=== PATIENT | male | born 1975 | race Caucasian/White ===

== ENCOUNTER 2020-01-25 09:37 | Outpatient (REF) | payer OTHER, SELFPAY ==
[2020-01-25 10:11] LABS: MANUAL DIFF FLAG NO
[2020-01-25 10:16] LABS: Basophils Percent Auto 0.1 % (0-2); Eosinophils Absolute Auto 0.1 X10*3/uL (0.0-0.4); Eosinophils Percent Auto 1.4 % (0-4); Hematocrit 42.9 % (42-52); Hemoglobin 14.1 g/dl (14.0-18.0); Imm Gran Abs Auto 0.02 X10*3/uL (0.00-0.03); Imm Gran Pct Auto 0.3 % (0.0-0.4); Lymphocytes Absolute Auto 2.6 X10*3/uL (1.2-4.9); Lymphocytes Percent Auto 33.6 % (20-40); Mean Corpuscular HGB Conc 32.9 g/dl (31.0-36.0); Mean Corpuscular Hemoglobin 29.7 pg (27.0-33.0); Mean Corpuscular Volume 90.3 fL (80-98); Mean Platelet Volume 10.5 fL (9.4-12.4); Monocytes Absolute Auto 0.6 X10*3/uL (0.1-1.2); Monocytes Percent Auto 7.9 % (2-11); Neutrophils Absolute Auto 4.4 X10*3/uL (2.0-8.3); Neutrophils Percent Auto 56.7 % (45-73); Platelet Count 239 X10*3/uL (160-400); Red Blood Count 4.75 X10*6/uL (4.60-5.80); Red Cell Distribution Width 12.5 % (11.0-16.0); White Blood Count 7.7 X10*3/uL (4.8-10.8)
[2020-01-25 10:34] LABS: Glucose Urine UA NEG (NEG); Leukocyte Esterase Urine NEG (NEG); Nitrite Urine NEG (NEG); Specific Gravity - Urine >= 1.030 (1.005-1.025); Urine Blood NEG (NEG); Urine Ketones NEG (NEG); Urine Protein NEG (NEG-TRACE)
[2020-01-25 10:38] LABS: Appearance Urine CLEAR; Color Urine YELLOW
[2020-01-25 11:06] LABS: Alanine Aminotransferase 28 U/L (0-40); Albumin Level 4.2 g/dL (3.5-5.0); Alkaline Phosphatase 64 U/L (39-117); Anion Gap 12 (12-20); Aspartate Amino Transferase 18 U/L (5-37); Bilirubin Total 0.5 mg/dL (0.0-1.0); Blood Urea Nitrogen 16 mg/dL (9-16); Calcium 9.3 mg/dL (8.4-10.2); Carbon Dioxide 27 mmol/L (22-29); Chloride 105 mmol/L (96-108); Cholesterol 235 mg/dL; Estimated Glomerular Filt Rate > 60; Glucose Fasting 120 mg/dL (60-99); HDL Cholesterol 53 mg/dL; LDL Cholesterol Calculated 156 mg/dl; Potassium 4.6 mmol/l (3.3-5.1); Sodium 139 mmol/L (135-145); Total Protein 6.8 g/dL (6.5-8.0); Triglycerides 130 mg/dL
[2020-01-25 11:11] LABS: Mucus Urine 1+ /LPF; RBC Urine 0 /HPF (0); Squamous Epithelial Cell Urine TRACE /LPF; WBC Urine 0 /HPF (0-4)
[2020-01-25 11:14] LABS: Creatinine Urine 203.67 mg/dL; Microalbum/Creatinine Ratio Ur 3.4 ug/mg cr
== END 2020-01-25 09:38 | disposition home or self-care (01) ==
LOC: HO.LAB 09:37
PROVIDERS: PCP Internal Medicine; Visit Provider Internal Medicine
DX: Z00.00 Encounter for general adult medical examination without abnormal findings (principal); R73.01 Impaired fasting glucose; E66.9 Obesity, unspecified
CPT/HCPCS: 36415; 80053; 80061; 81003; 81015; 82043; 84443; 85025

== ENCOUNTER 2020-10-02 08:15 | Outpatient (REF) | payer OTHER, SELFPAY | END 2020-10-02 08:16 | disposition home or self-care (01) | LOC: HO.LAB 08:15 | PROVIDERS: PCP Internal Medicine; Visit Provider Internal Medicine | DX: Z13.89 Encounter for screening for other disorder (principal) ==

== ENCOUNTER 2020-11-12 07:52 | Outpatient (REF) | payer OTHER, SELFPAY ==
[2020-11-12 08:54] LABS: Estimated Average Glucose 146 mg/dL; Hemoglobin A1c % 6.7 %
[2020-11-12 09:05] LABS: Alanine Aminotransferase 23 U/L (0-40); Alkaline Phosphatase 74 U/L (39-117); Anion Gap 13 (12-20); Aspartate Amino Transferase 18 U/L (5-37); Bilirubin Total 0.5 mg/dL (0.0-1.0); Blood Urea Nitrogen 15 mg/dL (9-16); Calcium 9.4 mg/dL (8.4-10.2); Carbon Dioxide 26 mmol/L (22-29); Chloride 106 mmol/L (96-108); Cholesterol 222 mg/dL; Estimated Glomerular Filt Rate > 60; Glucose Fasting 132 mg/dL (60-99); HDL Cholesterol 42 mg/dL; LDL Cholesterol Calculated 157 mg/dl; Potassium 4.9 mmol/L (3.3-5.1); Sodium 140 mmol/L (135-145); Total Protein 6.7 g/dL (6.5-8.0); Triglycerides 119 mg/dL
[2020-11-12 09:27] LABS: TSH reflex Free T4 1.34 uIU/mL (0.32-4.0)
== END 2020-11-12 07:53 | disposition home or self-care (01) ==
LOC: HO.LAB 07:52
PROVIDERS: PCP Internal Medicine; Visit Provider Internal Medicine
DX: E78.00 Pure hypercholesterolemia, unspecified (principal); E66.9 Obesity, unspecified; R73.01 Impaired fasting glucose
CPT/HCPCS: 36415; 80053; 80061; 83036; 84443

== ENCOUNTER 2021-04-04 07:35 | Outpatient (REF) | payer OTHER, SELFPAY ==
[2021-04-04 08:10] LABS: Estimated Average Glucose 131 mg/dL; Hemoglobin A1c % 6.2 %
[2021-04-04 08:18] LABS: Alanine Aminotransferase 24 U/L (0-40); Albumin Level 4.1 g/dL (3.5-5.0); Alkaline Phosphatase 70 U/L (39-117); Anion Gap 11 (12-20); Aspartate Amino Transferase 17 U/L (5-37); Bilirubin Total 0.6 mg/dL (0.0-1.0); Blood Urea Nitrogen 14 mg/dL (9-16); Calcium 9.7 mg/dL (8.4-10.2); Carbon Dioxide 29 mmol/L (22-29); Chloride 105 mmol/L (96-108); Cholesterol 201 mg/dL; Estimated Glomerular Filt Rate > 60; Glucose Fasting 119 mg/dL (60-99); HDL Cholesterol 46 mg/dL; LDL Cholesterol Calculated 135 mg/dl; Potassium 4.8 mmol/L (3.3-5.1); Sodium 140 mmol/L (135-145); Total Protein 6.8 g/dL (6.5-8.0); Triglycerides 104 mg/dL
== END 2021-04-04 07:36 | disposition home or self-care (01) ==
LOC: HO.LAB 07:35
PROVIDERS: PCP Internal Medicine; Visit Provider Internal Medicine
DX: E11.9 Type 2 diabetes mellitus without complications (principal); E78.00 Pure hypercholesterolemia, unspecified
CPT/HCPCS: 36415; 80053; 80061; 83036

== ENCOUNTER 2021-06-18 10:58 | Outpatient (REF) | payer OTHER, SELFPAY ==
--- NOTE | ~2021-06-18 | XR_ITS ---
EXAMINATION:XR cervical spine 3V CLINICAL INFORMATION: Cervalgia COMPARISON: None TECHNIQUE: 3 views of the cervical spine were obtained. Frontal lateral and open-mouth odontoid view FINDINGS: 7 cervical vertebrae identified maintaining normal height and alignments.. Mild narrowing of intervertebral disc spaces suggest underlying degenerative disc disease.. No prevertebral soft tissue swelling. Surrounding soft tissue and included lung apices are clear. Included lung apices are clear. XR/XR cervical spine 3V IMPRESSION: No fracture, bone alignment satisfactory. Narrowing of intervertebral disc spaces suggest underlying degenerative disc disease. .
== END 2021-06-18 10:59 | disposition home or self-care (01) ==
LOC: HO.XRAY 10:58
PROVIDERS: PCP Internal Medicine; Visit Provider Internal Medicine
DX: M54.2 Cervicalgia (principal)
CPT/HCPCS: 72040

== ENCOUNTER 2021-07-10 10:00 | Outpatient (RCR) | payer OTHER, SELFPAY ==
--- NOTE | 2021-06-19 12:47 | MHC.PT.EP ---
[facility] [place] Office [place] [facility] [place] Office [address] Jarett Rivera [address] [phone] F: [phone] F: [phone] F: [phone] F: [phone] Physical Therapy Plan of Care Date of Evaluation: Date of Surgery: NA Diagnosis: CERVICALGIA Assessment: Pt IS 46 YO RHD M REFERRED TO PT FROM DR CHRISTINA WITH CERVICALGIA. XRAY SHOWS SIGNS OF DDD. Pt REPORTS SOME CHRONIC ISSUES WITH NECK WITH RECENT INCREASE IN PAIN (?RELATED TO STARTING TO WORK OUT). ALSO REPORTS SOME L ULNAR DIST PARESTHESIA (RELIEF WITH NERVE GLIDES (FROM YOU TUBE) AND SOME L FOREARM SORENESS ( ?TENNIS ELBOW FROM PERCUSSION/BONGO WORK ) WHICH HAVE RESOLVED. PRESENTS WITH LIMITED/SX CREATING CERV EXT, GOOD SHLDER ROM, GOOD SHLDER STRENGTH. SHOULD BENEFIT FROM PT TO HELP INCREASE UPPER BACK STRENGTH, STRETCH CERV MMS Frequency and Duration: The patient will be seen 2X/WK X 4 WKS Short Term Goals: 1. INCREASED AWARENESS POSTURE AND NECK CARE 2. IMPROVED SLEEP Half-Way Goals: 1. I HEP WITH DC EX PLAN 2. IMPROVED NPDI Treatment Plan: Modalities to reduce pain, spasms and effusion. Manual therapy to restore motion and function. Therapeutic exercise to improve strength and flexibility. Neuromuscular re-education for posture and balance. Therapeutic activities to return to functional activities of daily living. Electronically signed by: LYNDA FLOR PT Please sign and return to therapist. Thank you for your referral.
== END 2021-08-07 13:52 | disposition home or self-care (01) ==
LOC: HO.PT 10:00
PROVIDERS: PCP Internal Medicine; Visit Provider Internal Medicine
DX: M54.2 Cervicalgia (principal)
CPT/HCPCS: 97110; 97140; 97161; 97535

== ENCOUNTER 2022-01-13 08:11 | Outpatient (REF) | payer OTHER, SELFPAY ==
[2022-01-13 08:39] LABS: MANUAL DIFF FLAG NO
[2022-01-13 09:09] LABS: Basophils Percent Auto 0.1 % (0-2); Eosinophils Absolute Auto 0.2 X10*3/uL (0.0-0.4); Hematocrit 42.4 % (42.0-52.0); Hemoglobin 14.1 g/dl (14.0-18.0); Imm Gran Abs Auto 0.03 X10*3/uL (0.00-0.03); Imm Gran Pct Auto 0.4 % (0.0-0.4); Lymphocytes Absolute Auto 2.1 X10*3/uL (1.2-4.9); Lymphocytes Percent Auto 28.5 % (20-40); Mean Corpuscular HGB Conc 33.3 g/dl (31.0-36.0); Mean Corpuscular Volume 90.2 fL (80.0-98.0); Mean Platelet Volume 10.8 fL (9.4-12.4); Monocytes Absolute Auto 0.6 X10*3/uL (0.1-1.2); Monocytes Percent Auto 8.5 % (2-11); Neutrophils Absolute Auto 4.4 x10*3/uL (2.0-8.3); Neutrophils Percent Auto 59.5 % (45-73); Platelet Count 218 X10*3/uL (160-400); Red Cell Distribution Width 12.5 % (11.0-16.0); White Blood Count 7.4 X10*3/uL (4.8-10.8)
[2022-01-13 09:24] LABS: Appearance Urine Clear; Color Urine Yellow; Glucose Urine UA Negative (Negative); Leukocyte Esterase Urine Negative (Negative); Nitrite Urine Negative (Negative); PH 6.5 (5.0-9.0); Specific Gravity - Urine 1.015 (1.005-1.025); Urine Blood Negative (Negative); Urine Ketones Negative (Negative); Urine Protein Negative (Neg-Trace)
[2022-01-13 09:40] LABS: Alanine Aminotransferase 20 U/L (0-40); Albumin Level 4.2 g/dL (3.5-5.0); Alkaline Phosphatase 67 U/L (39-117); Anion Gap 15 (12-20); Aspartate Amino Transferase 18 U/L (5-37); Bilirubin Total 0.9 mg/dL (0.0-1.0); Blood Urea Nitrogen 15 mg/dL (9-16); Calcium 9.4 mg/dL (8.4-10.2); Carbon Dioxide 26 mmol/L (22-29); Chloride 103 mmol/L (96-108); Cholesterol 156 mg/dL; Estimated Glomerular Filt Rate > 60; Glucose Fasting 102 mg/dL (60-99); HDL Cholesterol 51 mg/dL; LDL Cholesterol Calculated 90 mg/dl; Potassium 4.5 mmol/L (3.3-5.1); Sodium 139 mmol/L (135-145); Total Protein 6.7 g/dL (6.5-8.0); Triglycerides 78 mg/dL
[2022-01-13 10:05] LABS: Prostate Specific Antigen Scr 0.48 ng/mL (<0.05-4.0); TSH reflex Free T4 1.14 uIU/mL (0.32-4.0); Vitamin D 25-OH Total 18.8 ng/mL (>30)
== END 2022-01-13 08:12 | disposition home or self-care (01) ==
LOC: HO.LAB 08:11
PROVIDERS: PCP Internal Medicine; Visit Provider Internal Medicine
DX: Z00.00 Encounter for general adult medical examination without abnormal findings (principal); E55.9 Vitamin D deficiency, unspecified; E11.9 Type 2 diabetes mellitus without complications; E78.00 Pure hypercholesterolemia, unspecified
CPT/HCPCS: 36415; 80053; 80061; 81003; 82306; 84153; 84443; 85025

== ENCOUNTER 2022-02-03 18:48 | Emergency (ER) | payer OTHER, SELFPAY ==
--- NOTE | ~2022-02-03 | CT_ITS ---
EXAMINATION: CT ABDOMEN AND PELVIS WITHOUT CONTRAST CLINICAL INFORMATION: Left lower quadrant abdominal pain COMPARISON: 03/01/2019 TECHNIQUE: Multidetector volumetric imaging was performed from the superior aspect of the liver through the pubic symphysis. Sagittal and coronal reformatted images were obtained on the technologist's workstation. This CT examination was performed using dose optimization techniques as appropriate, variously including the following: *Automated exposure control *Adjustment of mA and/or kV according to patient size (this includes techniques or standardized protocols for targeted exams where dose is matched to indication/reason for exam; i.e. extremities or head) *Use of iterative reconstruction technique DLP: 825 mGy-cm FINDINGS: LUNG BASES: The visualized lung bases are unremarkable. LIVER, GALLBLADDER, AND BILIARY TREE: The liver is normal in size, shape, and attenuation. No focal hepatic lesion or biliary ductal dilatation is present. The gallbladder is unremarkable with no evidence of radiopaque gallstones, gallbladder wall thickening, or obvious pericholecystic inflammatory changes. PANCREAS: Unremarkable. SPLEEN: Unremarkable. ADRENAL GLANDS: Unremarkable. KIDNEYS AND URETERS: The kidneys are normal in size, shape, and attenuation. No hydronephrosis, hydroureter, or calculi seen. No perinephric stranding. BLADDER: Unremarkable. GASTROINTESTINAL TRACT: No bowel related abnormalities. ABDOMINAL WALL: No significant hernia is appreciated. LYMPH NODES: Normal. VASCULAR: Unremarkable. PELVIC VISCERA: Unremarkable. OSSEOUS STRUCTURES: No acute or suspicious osseous abnormalities. CT/CT abdomen pelvis wo IV con IMPRESSION: No acute findings within the abdomen or pelvis to explain the patient's symptomatology. Fleischner guidelines were followed.
[2022-02-03 20:29] LABS: Appearance Urine Clear; Color Urine Yellow; Glucose Urine UA Negative (Negative); Leukocyte Esterase Urine Negative (Negative); Nitrite Urine Negative (Negative); PH 5.5 (5.0-9.0); Specific Gravity - Urine 1.025 (1.005-1.025); Urine Blood Negative (Negative); Urine Ketones Negative (Negative); Urine Protein Negative (Neg-Trace)
[2022-02-03 20:55] VITALS: BP 135/81; PULSE 61; RESP 18; TEMP 36.6; O2SAT 99; BMI 32.2
[2022-02-04 00:52] VITALS: BP 133/81; PULSE 53; RESP 16; TEMP 36.7; O2SAT 98
--- NOTE | 2022-02-04 00:52 | PC.NURSE ---
ASSUMED CARE OF PATIENT AT 0055 ,TOOK PATIENT VITALS SIGN ,PATIENT AT BEDSIDE .
--- NOTE | 2022-02-04 01:14 | ED_ITS ---
HPI - Abdominal Pain General Chief Complaint: Abdominal Pain Stated Complaint: lower left back and abd pain Time Seen by Provider: 02/04/22 01:08 Source: patient Mode of arrival: ambulatory Limitations: no limitations History of Present Illness HPI narrative: 47 yo male with history of DM, obesity, HLD presents with intermittent left- sided abdominal pain which radiates the back since yesterday after eating some p wilmer with fettucine sauce. No nausea, vomiting, diarrhea, urinary symptoms, fevers or chills Related Data Home Medications Medication Instructions Recorded Confirmed metformin 500 mg tablet,extended 500 mg PO DAILY 12/23/21 release 24 hr Previous Rx's Medication Instructions Recorded rosuvastatin 10 mg tablet 10 mg PO DAILY #30 tabs 08/17/21 Allergies Allergy/AdvReac Type Severity Reaction Status Date / Time atorvastatin AdvReac Severe Difficulty Verified 12/23/21 16:35 Breathing Review of Systems Review of Systems Yes all other systems are reviewed and are negative Constitutional: Reports no additional constitutional complaints, Denies body ache(s), Denies chills, Denies fever(s), Denies headache(s) and Denies weakness Eyes: Reports no additional eye complaints and Denies change in vision Reports system reviewed and no additional complaints, except as documented, Denies dizziness, Denies headache(s), Denies nasal congestion, Denies nasal discharge and Denies neck pain Cardiovascular: Reports no additional cardiovascular complaints, Denies chest pain, Denies leg edema and Denies dyspnea Respiratory: Reports no additional respiratory complaints, Denies cough and Denies dyspnea Gastrointestinal: Reports no additional gastrointestinal complaints, Reports abdominal pain, Denies diarrhea, Denies nausea and Denies vomiting Genitourinary: Denies urinary incontinence Musculoskeletal: Reports no additional musculoskeletal complaints, Denies back pain, Denies arthralgias, Denies joint swelling, Denies neck pain, Denies numbness and Denies tingling Skin/Breast: Reports system reviewed and no additional complaints, except as docu and Denies rash Reports system reviewed and no additional complaints, except as documented, Denies dizziness, Denies headache(s), Denies numbness, Denies tingling and Denies weakness PMFSH Past Medical History Attestation statement: The following information was validated with the patient. Source: old records reviewed and nursing notes reviewed Medical History Diabetes mellitus Obesity (BMI 30-39.9) Pure hypercholesterolemia Surgical History No pertinent past surgical history Family History Family History Father Prediabetes Mother Schizophrenia Bipolar 1 disorder Maternal Grandfather Diabetes Daughter Epilepsy Maternal Grandmother Dementia Other Mental health problem Social History Social History Housing: Apartment Alcohol intake: current Alcohol intake frequency: holidays/special occasions only Patient Tobacco Use Status: Never used Tobacco Second Hand Smoke Exposure: Yes Advance Directives: No service: No Current occupational status: employed 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 Physical Exam ED Vital Signs: Vital Signs - 24 hr 02/03/22 20:55 02/04/22 00:52 02/04/22 01:59 Temperature 97.8 F 98.0 F 97.8 F Pulse Rate 61 53 51 Respiratory Rate 18 16 16 Blood Pressure 135/81 133/81 117/76 Pulse Oximetry 99 98 99 Oxygen Delivery Method Room Air Room Air Room Air BMI result Body Mass Index 32.2 Const General: cooperative, healthy appearing and no acute distress Orientation/consciousness: patient oriented x3 Limitations: no limitations HENMT Head: Yes normal to inspection Ears: hearing grossly normal bilaterally Eyes General: appearance normal, both eyes and all related structures Pupils: Equal, round and reactive pupils present Neck Neck: Yes normal visual inspection Chest Chest palpation & inspection: normal inspection of the chest Resp Effort & Inspection: normal respiratory effort Auscultation: clear to auscultation bilaterally Cardio Rate: regular rate Rhythm: regular rhythm Peripheral pulses: Peripheral pulses 2+ throughout GI Inspection: Yes normal to inspection Palpation (GI): Soft to palpation and Tenderness to palpation present (GI) in the LLQ General: Yes no CVA tenderness Back/Spine/Pelvis Back: no CVA tenderness Thoracic/Lumbar Spine: thoracic and lumbar spine normal to inspection Skin General skin exam: no rashes or lesions noted Neuro General: patient oriented x3 and moves all extremities Cranial nerves: Yes Equal, round and reactive pupils present Cognition (Neuro): normal cognition Gait exam (Neuro): Normal gait present Course Course Course Narrative: Labs are unremarkable. Urine testing shows no blood or signs of infection. CT of abdomen and pelvis is negative for any finding. Patient is tolerating p.o. with no vomiting. Abdomen is soft with some mild tenderness. No rebound or guarding. No signs of peritonitis. Plan for discharge home. Reviewed worrisome signs and symptoms of when to return to the emergency room. Comfortable with discharge home. MDM - Abdominal Pain MDM Narrative Medical decision making narrative: 47-year-old male here with left-sided abdominal pain with radiation to the back after eating some food yesterday with no other associated symptoms. Will check labs, UA, CT Pancreatitis, renal colic, diverticulitis Medical Records Attestation: I reviewed the patient's medical records. Lab Data Attestation: I reviewed the patient's lab results. Result diagrams: 02/04/22 01:26 02/04/22 01:26 Labs: Lab Results 02/03/22 02/04/22 02/04/22 Range/Units 20:21 01:26 01:26 WBC 8.8 (4.8-10.8) X10*3/uL RBC 4.65 (4.60-5.80) X10*6/uL Hgb 13.8 L (14.0-18.0) g/dl Hct 41.4 L (42.0-52.0) % MCV 89.0 (80.0-98.0) fL MCH 29.7 (27.0-33.0) pg MCHC 33.3 (31.0-36.0) g/dl RDW 12.2 (11.0-16.0) % Plt Count 209 (160-400) X10*3/uL MPV 10.3 (9.4-12.4) fL Immature Gran % (Auto) 0.2 (0.0-0.4) % Neut % (Auto) 57.7 (45-73) % Lymph % (Auto) 32.7 (20-40) % [place] % (Auto) 7.5 (2-11) % Eos % (Auto) 1.7 (0-4) % Baso % (Auto) 0.2 (0-2) % Lymph # (Auto) 2.9 (1.2-4.9) X10*3/uL [place] # (Auto) 0.7 (0.1-1.2) X10*3/uL Eos # (Auto) 0.2 (0.0-0.4) X10*3/uL Baso # (Auto) 0.0 (0.0-0.2) X10*3/uL Abs Immat Gran (auto) 0.02 (0.00-0.03) X10*3/uL Absolute Neuts (auto) 5.1 (2.0-8.3) x10*3/uL Absolute Nucleated RBC 0.000 (0.0-0.012) X10*3/uL Nucleated RBC % (auto) 0.0 (0.0-0.2) /100WBC Sodium 139 (135-145) mmol/L Potassium 4.8 (3.3-5.1) mmol/L Chloride 104 (96-108) mmol/L Carbon Dioxide 26 (22-29) mmol/L Anion Gap 14 (12-20) BUN 11 (9-16) mg/dL Creatinine 0.91 (0.5-1.4) mg/dL Estim Creat Clear Calc 120.9 Estimated GFR > 60 Random Glucose 112 (60-115) mg/dL Calcium 9.3 (8.4-10.2) mg/dL Total Bilirubin 0.7 (0.0-1.0) mg/dL Direct Bilirubin 0.3 (0.0-0.5) mg/dL AST 15 (5-37) U/L ALT 20 (0-40) U/L Alkaline Phosphatase 63 (39-117) U/L Total Protein 6.5 (6.5-8.0) g/dL Albumin 4.1 (3.5-5.0) g/dL Lipase 20 (8-78) U/L Urine Color Yellow Urine Appearance Clear Urine pH 5.5 (5.0-9.0) Ur Specific [place] 1.025 (1.005-1.025) Urine Protein Negative (Neg-Trace) mg/dL Urine Glucose (UA) Negative (Negative) mg/dL Urine Ketones Negative (Negative) mg/dL Urine Blood Negative (Negative) Urine Nitrite Negative (Negative) Ur Leukocyte Esterase Negative (Negative) Imaging Data CT scan - abdomen: Attestation: I personally reviewed and interpreted this imaging study as follows: Radiologist's impression: FINDINGS: LUNG BASES: The visualized lung bases are unremarkable.? LIVER, GALLBLADDER, AND BILIARY TREE: The liver is normal in size, shape, and attenuation. No focal hepatic lesion or biliary ductal dilatation is present. The gallbladder is unremarkable with no evidence of radiopaque gallstones, gallbladder wall thickening, or obvious pericholecystic inflammatory changes.? PANCREAS: Unremarkable.? SPLEEN: Unremarkable.? ADRENAL GLANDS: Unremarkable.? KIDNEYS AND URETERS: The kidneys are normal in size, shape, and attenuation. No hydronephrosis, hydroureter, or calculi seen. No perinephric stranding. ? BLADDER: Unremarkable.? GASTROINTESTINAL TRACT: No bowel related abnormalities.? ABDOMINAL WALL: No significant hernia is appreciated.? LYMPH NODES: Normal. VASCULAR: Unremarkable. PELVIC VISCERA: Unremarkable.? OSSEOUS STRUCTURES: No acute or suspicious osseous abnormalities.? CT/CT abdomen pelvis wo IV con IMPRESSION: No acute findings within the abdomen or pelvis to explain the patient's symptomatology. ? Fleischner guidelines were followed. Discharge Plan Discharge Clinical Impression: Abdominal pain Patient Disposition: Home, Self-Care Instructions: Abdominal Pain (ED) Additional Instructions: Lab work, urine testing and x-ray are all reassuring Follow-up with your primary care doctor for any persistent symptoms Return for fever, intractable vomiting, worsening pain Prescriptions: No Action rosuvastatin 10 mg tablet 10 mg PO DAILY Qty: 30 3RF metformin 500 mg tablet extended release 24 hr 500 mg PO DAILY
[2022-02-04 01:30] LABS: MANUAL DIFF FLAG NO
[2022-02-04 01:31] LABS: Basophils Percent Auto 0.2 % (0-2); Eosinophils Absolute Auto 0.2 X10*3/uL (0.0-0.4); Eosinophils Percent Auto 1.7 % (0-4); Hematocrit 41.4 % (42.0-52.0); Hemoglobin 13.8 g/dl (14.0-18.0); Imm Gran Abs Auto 0.02 X10*3/uL (0.00-0.03); Imm Gran Pct Auto 0.2 % (0.0-0.4); Lymphocytes Absolute Auto 2.9 X10*3/uL (1.2-4.9); Lymphocytes Percent Auto 32.7 % (20-40); Mean Corpuscular HGB Conc 33.3 g/dl (31.0-36.0); Mean Corpuscular Hemoglobin 29.7 pg (27.0-33.0); Mean Platelet Volume 10.3 fL (9.4-12.4); Monocytes Absolute Auto 0.7 X10*3/uL (0.1-1.2); Monocytes Percent Auto 7.5 % (2-11); Neutrophils Absolute Auto 5.1 x10*3/uL (2.0-8.3); Neutrophils Percent Auto 57.7 % (45-73); Platelet Count 209 X10*3/uL (160-400); Red Blood Count 4.65 X10*6/uL (4.60-5.80); Red Cell Distribution Width 12.2 % (11.0-16.0); White Blood Count 8.8 X10*3/uL (4.8-10.8)
[2022-02-04 01:49] LABS: Alanine Aminotransferase 20 U/L (0-40); Albumin Level 4.1 g/dL (3.5-5.0); Alkaline Phosphatase 63 U/L (39-117); Anion Gap 14 (12-20); Aspartate Amino Transferase 15 U/L (5-37); Bilirubin Direct 0.3 mg/dL (0.0-0.5); Bilirubin Total 0.7 mg/dL (0.0-1.0); Blood Urea Nitrogen 11 mg/dL (9-16); Calcium 9.3 mg/dL (8.4-10.2); Carbon Dioxide 26 mmol/L (22-29); Chloride 104 mmol/L (96-108); Creatinine Clr Calc Pharmacy 120.9; Estimated Glomerular Filt Rate > 60; Glucose Random 112 mg/dL (60-115); Lipase 20 U/L (8-78); Potassium 4.8 mmol/L (3.3-5.1); Sodium 139 mmol/L (135-145); Total Protein 6.5 g/dL (6.5-8.0)
[2022-02-04 01:59] VITALS: BP 117/76; PULSE 51; RESP 16; TEMP 36.6; O2SAT 99
== END 2022-02-04 02:18 | disposition home or self-care (01) ==
PROVIDERS: Nurse Practitioner Family; Emergency Provider Emergency Medicine; PCP Internal Medicine
DX: R10.32 Left lower quadrant pain (principal); M54.50 Low back pain, unspecified; E11.9 Type 2 diabetes mellitus without complications; Z79.899 Other long term (current) drug therapy
CPT/HCPCS: 36415; 74176; 80048; 80076; 81003; 83690; 85025; 99283; 99284

== ENCOUNTER 2022-04-30 09:20 | Emergency (ER) | payer OTHER, SELFPAY ==
--- NOTE | ~2022-04-30 | XR_ITS ---
EXAMINATION: XR CHEST CLINICAL INFORMATION: Disorientation. COMPARISON: 05/31/2017 chest radiographs. TECHNIQUE: Frontal view of the chest was obtained. FINDINGS: No significant abnormality is noted involving the heart, lungs, mediastinum, bony thorax or soft tissues. XR/XR chest 1V IMPRESSION: No acute cardiopulmonary process.
--- NOTE | ~2022-04-30 | CT_ITS ---
EXAMINATION: CT HEAD WITHOUT CONTRAST CLINICAL INFORMATION: Intermittent episodes of disorientation. COMPARISON: None TECHNIQUE: Contiguous axial imaging was performed from the skull base to vertex without intravenous administration of contrast. Coronal and sagittal reformatted images were obtained. This CT examination was performed using dose optimization techniques as appropriate, variously including the following: *Automated exposure control *Adjustment of mA and/or kV according to patient size (this includes techniques or standardized protocols for targeted exams where dose is matched to indication/reason for exam; i.e. extremities or head) *Use of iterative reconstruction technique DLP: 669 mGy-cm FINDINGS: The cortical sulci are normal. The lateral ventricles are symmetrical. The third and fourth ventricles are in their normal midline position. The basilar and prepontine cisterns are unremarkable. There is no acute intra or extracerebral abnormality. There is no mass effect or midline shift. Sections through the bony calvarium are unremarkable. The paranasal sinuses are clear. The bony orbits and orbital contents are unremarkable. CT/CT head/brain wo IV con IMPRESSION: No acute intracranial pathology.
[2022-04-30 09:27] VITALS: BP 142/92; PULSE 75; RESP 18; TEMP 36.8; O2SAT 98; BMI 32.7
--- NOTE | 2022-04-30 09:38 | ECG_ITS ---
Test Reason : DISORIENTED Blood Pressure : / mmHG Vent. Rate : 060 BPM Atrial Rate : 060 BPM P-R Int : 144 ms QRS Dur : 092 ms QT Int : 386 ms P-R-T Axes : 047 -17 011 degrees QTc Int : 386 ms Normal sinus rhythm Normal ECG When compared with ECG of 31-MAY-2017 04:18, No significant change was found Referred By: Zully Phillips Electronically Signed By:Nikko Lombardi
--- NOTE | 2022-04-30 09:42 | ED.GENADULT ---
HPI - General Adult General Chief complaint: General Medical Stated complaint: Headache Chills Time Seen by Provider: 04/30/22 09:23 Source: patient Mode of arrival: ambulatory History of Present Illness HPI narrative: 47-year-old male with past medical history of diabetes, HLD, presenting to the ED complaining of 1 week of intermittent headaches, chills, and disorientation. Describes disorientation as feeling nauseous, w/chills, fatigue, and no desire to do anything lasting about 15 minutes per episode. Reports associated anorexia, and few pound weight loss. Denies LOC/confusion, witnessed seizure-like activity. Suspects ate some bad food. Admits was evaluated in [place] for same symptoms 1 week ago, and had negative workup diagnosed w/ viral illness. Denies CP, SOB, abdominal pain, vomiting diarrhea, dysuria/hematuria, vision change/loss, lightheadedness/dizziness. Denies taking anticoagulation. Onset (ago): week(s) Related Data Home Medications Medication Instructions Recorded Confirmed metformin 500 mg tablet,extended 500 mg PO DAILY 12/23/21 release 24 hr Previous Rx's Medication Instructions Recorded rosuvastatin 10 mg tablet 10 mg PO DAILY #30 tabs 08/17/21 Allergies Allergy/AdvReac Type Severity Reaction Status Date / Time atorvastatin AdvReac Severe Difficulty Verified 12/23/21 16:35 Breathing Review of Systems Review of Systems: Constitutional: No Fever, + Chills, No Fatigue, No Malaise, +decreased appetitie ENT/Mouth: No Ear Pain, No Nasal Congestion, No sore throat, No Rhinorrhea, No Swallowing Difficulty Eyes: No Eye Pain, No Swelling, No Redness, No Discharge, No Vision Changes Cardiovascular: No Chest Pain, No SOB, No Edema, No Palpitations Respiratory: No Cough, No Sputum, No Dyspnea Gastrointestinal: + Nausea, No Vomiting, No Diarrhea, No Constipation, No Abdominal pain Genitourinary: No Dysuria, No Hematuria, No Flank Pain, No Hesitancy Musculoskeletal: No joint pain, No Myalgias, No Joint Swelling Skin: No Skin Lesions, No rash Neuro: +generalized Weakness, No Numbness, No Paresthesias, No Loss of Consciousness, No Dizziness, + Headache Psych: + Anxiety/Panic Yes all other systems are reviewed and are negative Constitutional: Constitutional: Reports as per HPI Neurologic: Denies Abnormal speech present PMFSH Past Medical History Attestation statement: The following information was validated with the patient. Medical History Diabetes mellitus Obesity (BMI 30-39.9) Pure hypercholesterolemia Surgical History No pertinent past surgical history Family History Family History Father Prediabetes Mother Schizophrenia Bipolar 1 disorder Maternal Grandfather Diabetes Daughter Epilepsy Maternal Grandmother Dementia Other Mental health problem Social History Social History Housing: Apartment Alcohol intake: never Patient Tobacco Use Status: Never used Tobacco Smoked in Last 30 Days: Yes Second Hand Smoke Exposure: Yes Use of substances other than those prescribed or required for medical reasons: No Advance Directives: No Advance Directives Information Provided: Yes service: No Current occupational status: employed 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 Physical Exam ED Vital Signs: Vital Signs - 24 hr 04/30/22 09:27 04/30/22 10:37 04/30/22 10:42 Temperature 98.3 F 97.7 F Pulse Rate 75 54 56 Respiratory Rate 18 16 Blood Pressure 142/92 H 114/71 123/71 Pulse Oximetry 98 97 Oxygen Delivery Method Room Air Room Air 04/30/22 10:37 04/30/22 10:38 04/30/22 12:10 Temperature 98.0 F Pulse Rate 60 61 58 Respiratory Rate 18 Blood Pressure 118/79 130/83 130/79 Pulse Oximetry 98 Oxygen Delivery Method Room Air BMI result Body Mass Index 32.7 Const General: cooperative, healthy appearing, no acute distress, alert, awake, Physically active and anxious Orientation/consciousness: patient oriented x3 Limitations: no limitations HENMT Head: Yes normal to inspection and Yes atraumatic Ears: hearing grossly normal bilaterally General nose exam: Normal external nose present Face and sinus: Yes normal facial exam Mouth: Normal oral and palatal mucosa present Throat: Yes posterior oropharynx normal, Yes tonsils normal, Yes uvula midline, No peritonsillar mass, No uvula laterally displaced and No uvular edema Eyes General: appearance normal, both eyes and all related structures Pupils: Equal, round and reactive pupils present EOM: EOMs intact bilaterally Neck Neck: Yes normal visual inspection and Yes no meningeal signs Resp Effort & Inspection: normal respiratory effort and no respiratory distress Auscultation: clear to auscultation bilaterally, no crackles, no rales, no rhonchi and no wheezes Cardio Rate: regular rate Heart sounds: S1 normal heart sound present and S2 normal heart sound present GI Inspection: Yes normal to inspection Palpation (GI): Soft to palpation, nontender, no guarding and not rigid Skin Rashes: no rashes Wounds: no wounds Neuro General: patient oriented x3, gait normal, tone normal, moves all extremities, no meningeal signs, no focal motor deficits and CN's II-XI intact bilaterally Cranial nerves: Yes CN's II-XII intact bilaterally, Yes Equal, round and reactive pupils present and Yes Bilaterally intact EOM present Cognition (Neuro): normal cognition Speech: No Abnormal speech present Gait exam (Neuro): Normal gait present Motor exam (neuro): 5/5 motor strength present throughout, Pronator motor function not present and no tremor noted Coordination: [id number] test normal Romberg Test: Negative Extrem General: Yes normal to inspection Course Course Course Narrative: -1149--labs unremarkable. UA negative. THC positive. -chest x-ray and head CT unremarkable -orthostatic vital signs negative Results discussed with patient including worrisome signs and symptoms and strict return precautions, and when to return to the emergency department. They verbalized understanding and feel safe for discharge at this time. Medications Administered Discontinued Medications Generic Name Dose Route Start Last Admin Trade Name Freq PRN Reason Stop Dose Admin Acetaminophen/Butalbital/Caffeine 1 tab 04/30/22 11:55 04/30/22 12:17 Butalb/Acetamin/Caff 50/325/40 Tablet PO 04/30/22 11:56 1 tab ONCE ONE Administration Sodium Chloride 1,000 mls @ 999 mls/hr 04/30/22 09:45 04/30/22 12:00 Ns IV 04/30/22 10:45 Infused .Q1H1M LESLIE Infusion Medical Decision Making Medical Decision Making [facility] Narrative: 47-year-old male with past medical history of diabetes, HLD, presenting to the ED complaining of 1 week of intermittent headaches, chills, and disorientation. Describes disorientation as feeling nauseous, w/chills, fatigue, and no desire to do anything lasting about 15 minutes per episode. On exam vital signs stable, NAD, anxious, nontoxic, exam nonfocal, no focal neuro deficits, ambulating with steady gait. Concern for viral illness vs anxiety reaction vs metabolic abnormalities. Lower suspicion for infectious etiology. Will obtain head CT to rule out mass. Low suspicion for ICH Plan: EKG, labs, UA, CXR, head CT, orthostatics, tox screen, IVF, re-evaluate Please refer to course for remaining clinical decision making, interpretation of labs/imaging results, and discussions with consultants and/or family members. Differential Diagnosis Differential Diagnoses: The differential diagnosis associated with the presentation includes As above Admission/Observation Consideration of admission/observation: Escalation of care including admission/observation considered Lab Data MDM Lab Attestation statement: I reviewed the patient's lab results. 04/30/22 10:17 04/30/22 10:17 Labs: Lab Results 04/30/22 04/30/22 04/30/22 Range/Units 10:17 10:17 10:17 WBC 6.5 (4.8-10.8) X10*3/uL RBC 4.78 (4.60-5.80) X10*6/uL Hgb 13.9 L (14.0-18.0) g/dl Hct 42.0 (42.0-52.0) % MCV 87.9 (80.0-98.0) fL MCH 29.1 (27.0-33.0) pg MCHC 33.1 (31.0-36.0) g/dl RDW 12.4 (11.0-16.0) % Plt Count 232 (160-400) X10*3/uL MPV 10.2 (9.4-12.4) fL Immature Gran % (Auto) 0.2 (0.0-0.4) % Neut % (Auto) 69.9 (45-73) % Lymph % (Auto) 20.6 (20-40) % [place] % (Auto) 7.9 (2-11) % Eos % (Auto) 1.2 (0-4) % Baso % (Auto) 0.2 (0-2) % Lymph # (Auto) 1.3 (1.2-4.9) X10*3/uL [place] # (Auto) 0.5 (0.1-1.2) X10*3/uL Eos # (Auto) 0.1 (0.0-0.4) X10*3/uL Baso # (Auto) 0.0 (0.0-0.2) X10*3/uL Abs Immat Gran (auto) 0.01 (0.00-0.03) X10*3/uL Absolute Neuts (auto) 4.5 (2.0-8.3) x10*3/uL Absolute Nucleated RBC 0.000 (0.0-0.012) X10*3/uL Nucleated RBC % (auto) 0.0 (0.0-0.2) /100WBC Sodium 142 (135-145) mmol/L Potassium 4.5 (3.3-5.1) mmol/L Chloride 108 (96-108) mmol/L Carbon Dioxide 29 (22-29) mmol/L Anion Gap 10 L (12-20) BUN 16 (9-16) mg/dL Creatinine 0.90 (0.5-1.4) mg/dL Estim Creat Clear Calc 119.6 Estimated GFR > 60 Random Glucose 106 (60-115) mg/dL Calcium 9.1 (8.4-10.2) mg/dL Magnesium 2.1 (1.6-2.6) mg/dL Total Bilirubin 0.7 (0.0-1.0) mg/dL Direct Bilirubin 0.2 (0.0-0.5) mg/dL AST 16 (5-37) U/L ALT 25 (0-40) U/L Alkaline Phosphatase 69 (39-117) U/L Ammonia 34 (13-55) umol/L Troponin I High Sens (<3.5-35.0) ng/L Total Protein 6.3 L (6.5-8.0) g/dL Albumin 3.9 (3.5-5.0) g/dL Urine Color Urine Appearance Urine pH (5.0-9.0) Ur Specific [place] (1.005-1.025) Urine Protein (Neg-Trace) mg/dL Urine Glucose (UA) (Negative) mg/dL Urine Ketones (Negative) mg/dL Urine Blood (Negative) Urine Nitrite (Negative) Ur Leukocyte Esterase (Negative) Urine Opiates Screen (Not Detect) Urine Fentanyl Screen (Not Detect) Ur Barbiturates Screen (Not Detect) Ur Phencyclidine Scrn (Not Detect) Ur Amphetamines Screen (Not Detect) U Benzodiazepines Scrn (Not Detect) Urine Cocaine Screen (Not Detect) U Marijuana (THC) Screen (Not Detect) Influenza Type A (PCR) (Negative) Influenza Type B (PCR) (Negative) RSV RNA Qual (PCR) (Negative) SARS-CoV-2 RNA (RT-PCR) (Negative) 04/30/22 04/30/22 04/30/22 Range/Units 10:17 10:17 10:17 WBC (4.8-10.8) X10*3/uL RBC (4.60-5.80) X10*6/uL Hgb (14.0-18.0) g/dl Hct (42.0-52.0) % MCV (80.0-98.0) fL MCH (27.0-33.0) pg MCHC (31.0-36.0) g/dl RDW (11.0-16.0) % Plt Count (160-400) X10*3/uL MPV (9.4-12.4) fL Immature Gran % (Auto) (0.0-0.4) % Neut % (Auto) (45-73) % Lymph % (Auto) (20-40) % [place] % (Auto) (2-11) % Eos % (Auto) (0-4) % Baso % (Auto) (0-2) % Lymph # (Auto) (1.2-4.9) X10*3/uL [place] # (Auto) (0.1-1.2) X10*3/uL Eos # (Auto) (0.0-0.4) X10*3/uL Baso # (Auto) (0.0-0.2) X10*3/uL Abs Immat Gran (auto) (0.00-0.03) X10*3/uL Absolute Neuts (auto) (2.0-8.3) x10*3/uL Absolute Nucleated RBC (0.0-0.012) X10*3/uL Nucleated RBC % (auto) (0.0-0.2) /100WBC Sodium (135-145) mmol/L Potassium (3.3-5.1) mmol/L Chloride (96-108) mmol/L Carbon Dioxide (22-29) mmol/L Anion Gap (12-20) BUN (9-16) mg/dL Creatinine (0.5-1.4) mg/dL Estim Creat Clear Calc Estimated GFR Random Glucose (60-115) mg/dL Calcium (8.4-10.2) mg/dL Magnesium (1.6-2.6) mg/dL Total Bilirubin (0.0-1.0) mg/dL Direct Bilirubin (0.0-0.5) mg/dL AST (5-37) U/L ALT (0-40) U/L Alkaline Phosphatase (39-117) U/L Ammonia (13-55) umol/L Troponin I High Sens < 3.5 (<3.5-35.0) ng/L Total Protein (6.5-8.0) g/dL Albumin (3.5-5.0) g/dL Urine Color Yellow Urine Appearance Clear Urine pH 6.0 (5.0-9.0) Ur Specific [place] >= 1.030 H (1.005-1.025) Urine Protein Trace (Neg-Trace) mg/dL Urine Glucose (UA) Negative (Negative) mg/dL Urine Ketones Trace (Negative) mg/dL Urine Blood Negative (Negative) Urine Nitrite Negative (Negative) Ur Leukocyte Esterase Negative (Negative) Urine Opiates Screen (Not Detect) Urine Fentanyl Screen (Not Detect) Ur Barbiturates Screen (Not Detect) Ur Phencyclidine Scrn (Not Detect) Ur Amphetamines Screen (Not Detect) U Benzodiazepines Scrn (Not Detect) Urine Cocaine Screen (Not Detect) U Marijuana (THC) Screen (Not Detect) Influenza Type A (PCR) NEGATIVE (Negative) Influenza Type B (PCR) NEGATIVE (Negative) RSV RNA Qual (PCR) NEGATIVE (Negative) SARS-CoV-2 RNA (RT-PCR) NEGATIVE (Negative) 04/30/22 Range/Units 10:17 WBC (4.8-10.8) X10*3/uL RBC (4.60-5.80) X10*6/uL Hgb (14.0-18.0) g/dl Hct (42.0-52.0) % MCV (80.0-98.0) fL MCH (27.0-33.0) pg MCHC (31.0-36.0) g/dl RDW (11.0-16.0) % Plt Count (160-400) X10*3/uL MPV (9.4-12.4) fL Immature Gran % (Auto) (0.0-0.4) % Neut % (Auto) (45-73) % Lymph % (Auto) (20-40) % [place] % (Auto) (2-11) % Eos % (Auto) (0-4) % Baso % (Auto) (0-2) % Lymph # (Auto) (1.2-4.9) X10*3/uL [place] # (Auto) (0.1-1.2) X10*3/uL Eos # (Auto) (0.0-0.4) X10*3/uL Baso # (Auto) (0.0-0.2) X10*3/uL Abs Immat Gran (auto) (0.00-0.03) X10*3/uL Absolute Neuts (auto) (2.0-8.3) x10*3/uL Absolute Nucleated RBC (0.0-0.012) X10*3/uL Nucleated RBC % (auto) (0.0-0.2) /100WBC Sodium (135-145) mmol/L Potassium (3.3-5.1) mmol/L Chloride (96-108) mmol/L Carbon Dioxide (22-29) mmol/L Anion Gap (12-20) BUN (9-16) mg/dL Creatinine (0.5-1.4) mg/dL Estim Creat Clear Calc Estimated GFR Random Glucose (60-115) mg/dL Calcium (8.4-10.2) mg/dL Magnesium (1.6-2.6) mg/dL Total Bilirubin (0.0-1.0) mg/dL Direct Bilirubin (0.0-0.5) mg/dL AST (5-37) U/L ALT (0-40) U/L Alkaline Phosphatase (39-117) U/L Ammonia (13-55) umol/L Troponin I High Sens (<3.5-35.0) ng/L Total Protein (6.5-8.0) g/dL Albumin (3.5-5.0) g/dL Urine Color Urine Appearance Urine pH (5.0-9.0) Ur Specific [place] (1.005-1.025) Urine Protein (Neg-Trace) mg/dL Urine Glucose (UA) (Negative) mg/dL Urine Ketones (Negative) mg/dL Urine Blood (Negative) Urine Nitrite (Negative) Ur Leukocyte Esterase (Negative) Urine Opiates Screen Not Detected (Not Detect) Urine Fentanyl Screen Not Detected (Not Detect) Ur Barbiturates Screen Not Detected (Not Detect) Ur Phencyclidine Scrn Not Detected (Not Detect) Ur Amphetamines Screen Not Detected (Not Detect) U Benzodiazepines Scrn Not Detected (Not Detect) Urine Cocaine Screen Not Detected (Not Detect) U Marijuana (THC) Screen POSITIVE H (Not Detect) Influenza Type A (PCR) (Negative) Influenza Type B (PCR) (Negative) RSV RNA Qual (PCR) (Negative) SARS-CoV-2 RNA (RT-PCR) (Negative) Independent Interpretation I performed an independent interpretation of an: EKG Interpretation: My interpretation: EKG normal sinus rhythm at a rate of 60. QRS 92. QTC 386. No STEMI. Radiology Impression Discussion of test interpretation with radiology: I have reviewed the radiologist's reading. Independent Historian Clinical information obtained from an independent historian. History obtained from or confirmed by: Spouse Chronic Conditions Patient?s care impacted by: Diabetes Discharge Plan Discharge Clinical Impression: Intermittent headache, Chills, Acute viral syndrome Patient Disposition: Home, Self-Care Instructions: Acute Headache (ED), Viral Syndrome (ED) Additional Instructions: Your blood work, urine, head CT, and chest x-ray were reassuring. Please stay hydrated at home. Follow up with your doctor. If symptoms persist or worsen return to the emergency department Prescriptions: No Action rosuvastatin 10 mg tablet 10 mg PO DAILY Qty: 30 3RF metformin 500 mg tablet extended release 24 hr 500 mg PO DAILY Referrals: Wilfredo Escobar MD [Primary Care Provider] - 3 days Interventions: ED Discharge Assessment Last Done: 04/30/22 12:21 Discharge Date/Time: 04/30/22 12:22
[2022-04-30 10:23] LABS: MANUAL DIFF FLAG NO
[2022-04-30 10:25] LABS: Basophils Percent Auto 0.2 % (0-2); Eosinophils Absolute Auto 0.1 X10*3/uL (0.0-0.4); Eosinophils Percent Auto 1.2 % (0-4); Hemoglobin 13.9 g/dl (14.0-18.0); Imm Gran Abs Auto 0.01 X10*3/uL (0.00-0.03); Imm Gran Pct Auto 0.2 % (0.0-0.4); Lymphocytes Absolute Auto 1.3 X10*3/uL (1.2-4.9); Lymphocytes Percent Auto 20.6 % (20-40); Mean Corpuscular HGB Conc 33.1 g/dl (31.0-36.0); Mean Corpuscular Hemoglobin 29.1 pg (27.0-33.0); Mean Corpuscular Volume 87.9 fL (80.0-98.0); Mean Platelet Volume 10.2 fL (9.4-12.4); Monocytes Absolute Auto 0.5 X10*3/uL (0.1-1.2); Monocytes Percent Auto 7.9 % (2-11); Neutrophils Absolute Auto 4.5 x10*3/uL (2.0-8.3); Neutrophils Percent Auto 69.9 % (45-73); Platelet Count 232 X10*3/uL (160-400); Red Blood Count 4.78 X10*6/uL (4.60-5.80); Red Cell Distribution Width 12.4 % (11.0-16.0); White Blood Count 6.5 X10*3/uL (4.8-10.8)
[2022-04-30 10:28] LABS: Appearance Urine Clear; Color Urine Yellow; Glucose Urine UA Negative (Negative); Leukocyte Esterase Urine Negative (Negative); Nitrite Urine Negative (Negative); Specific Gravity - Urine >= 1.030 (1.005-1.025); Urine Blood Negative (Negative); Urine Ketones Trace mg/dL (Negative); Urine Protein Trace mg/dL (Neg-Trace)
[2022-04-30 10:37] VITALS: BP 114/71; BP 118/79; PULSE 54; PULSE 60
[2022-04-30 10:38] VITALS: BP 130/83; PULSE 61
[2022-04-30 10:38] LABS: Ammonia 34 umol/L (13-55)
[2022-04-30 10:39] LABS: Amphetamine Screen Urine Not Detected (Not Detect); Barbiturates, Urine Not Detected (Not Detect); Benzodiazepines Screen Urine Not Detected (Not Detect); Cannabinoid Screen Urine POSITIVE (Not Detect); Cocaine Screen Urine Not Detected (Not Detect); Fentanyl, urine Not Detected (Not Detect); Opiate Screen Urine Not Detected (Not Detect); Phencyclidine Screen Urine Not Detected (Not Detect)
[2022-04-30 10:42] VITALS: BP 123/71; PULSE 56; RESP 16; TEMP 36.5; O2SAT 97
[2022-04-30 10:48] LABS: Alanine Aminotransferase 25 U/L (0-40); Albumin Level 3.9 g/dL (3.5-5.0); Alkaline Phosphatase 69 U/L (39-117); Anion Gap 10 (12-20); Aspartate Amino Transferase 16 U/L (5-37); Bilirubin Direct 0.2 mg/dL (0.0-0.5); Bilirubin Total 0.7 mg/dL (0.0-1.0); Blood Urea Nitrogen 16 mg/dL (9-16); Calcium 9.1 mg/dL (8.4-10.2); Carbon Dioxide 29 mmol/L (22-29); Chloride 108 mmol/L (96-108); Creatinine Clr Calc Pharmacy 119.6; Estimated Glomerular Filt Rate > 60; Glucose Random 106 mg/dL (60-115); Magnesium 2.1 mg/dL (1.6-2.6); Potassium 4.5 mmol/L (3.3-5.1); Sodium 142 mmol/L (135-145); Total Protein 6.3 g/dL (6.5-8.0)
[2022-04-30 10:57] LABS: Troponin-I High Sensitivity < 3.5 ng/L (<3.5-35.0)
[2022-04-30] MEDS: 0.9 % Sodium Chloride 1,000 ML 999 ML IV (10:57)
[2022-04-30 11:09] LABS: Influenza A PCR NEGATIVE (Negative); Influenza B PCR NEGATIVE (Negative); Resp Syncy Virus RNA Qual PCR NEGATIVE (Negative); SARS COV2 PCR INHOUSE NEGATIVE (Negative)
[2022-04-30 12:10] VITALS: BP 130/79; PULSE 58; RESP 18; TEMP 36.7; O2SAT 98
[2022-04-30] MEDS: Butalb/Acetamin/Caff 50/325/40 TABLET 1 TAB PO (12:17)
== END 2022-04-30 12:22 | disposition home or self-care (01) ==
PROVIDERS: Physician Assistant; Emergency Provider Emergency Medicine; PCP Internal Medicine
DX: B34.9 Viral infection, unspecified (principal); R51.9 Headache, unspecified; R07.89 Other chest pain; Z20.822 Contact with and (suspected) exposure to COVID-19; Z20.828 Contact with and (suspected) exposure to other viral communicable diseases; Z79.899 Other long term (current) drug therapy
CPT/HCPCS: 0241U; 36415; 70450; 71045; 80048; 80076; 80307; 81003; 82140; 83735; 84484; 85025; 93005; 96360; 99284; 99285

== ENCOUNTER → 2022-05-10 09:00 | Outpatient (BNVA) | payer OTHER, SELFPAY | PROVIDERS: PCP Internal Medicine; Visit Provider Nurse Practitioner Family | DX: Z12.11 Encounter for screening for malignant neoplasm of colon (principal) | CPT/HCPCS: 99202 ==

== ENCOUNTER 2022-05-14 20:30 | Emergency (ER) | payer OTHER, SELFPAY ==
--- NOTE | ~2022-05-14 | CT_ITS ---
EXAMINATION: CT ANGIOGRAM NECK AND HEAD CLINICAL INFORMATION: Severe headache COMPARISON: Head CT 04/30/2022 TECHNIQUE: Initial noncontrast head CT was performed. Test bolus sequences followed by intravenous administration 70 mL of Omnipaque 350. Helical imaging was performed in the axial plane from the thoracic inlet to the skull vertex. Delayed postcontrast imaging of the head was also performed. The data was processed at the x ray technologist's workstation for generation of MIP sequences. Angled MIPs and volume rendered reformatted images were also generated at an offline 3D workstation. Stenoses are assessed in accordance with NASCET criteria unless otherwise indicated. DOSE LOWERING TECHNIQUES: This CT examination was performed using dose optimization techniques as appropriate, variously including the following: - Automated exposure control - Adjustment of mA and/or kV according to patient size (this includes techniques or standardized protocols for targeted exams were dose is matched to indication/reason for exam; i.e. extremities or head) - Use of iterative reconstruction technique DLP: 2438 mGy-cm FINDINGS: Neck CTA: There is a classic 3 vessel branching pattern of the aortic arch. Normal appearance of the visualized aortic arch and proximal branches. No evidence of stenosis at the branch origins. Both vertebral arteries are widely patent throughout their extracranial cervical course. Normal appearance of the common and internal carotid arteries without focal stenosis. Brain CTA: There is normal opacification of major intracranial arteries. No focal flow-limiting stenosis, discrete proximal large artery occlusion, or aneurysm identified. Normal appearance of the intradural vertebral arteries. Normal appearance of the basilar and superior cerebellar arteries. Normally opacified posterior cerebral arteries bilaterally. Normal appearance of the intradural internal carotid arteries without focal stenosis. Normal appearance of the anterior cerebral and middle cerebral arteries without focal occlusion or stenosis. Normal anterior communicating artery. Normal arborization of the middle cerebral arteries. CT Head: No intracranial mass, hemorrhage, extra-axial collection, or midline shift. The martin-white matter differentiation is preserved. No pathologic intra-axial enhancement or regional oligemia. No hydrocephalus. The mastoid air cells and paranasal sinuses remain well aerated. CT Neck: The thyroid gland and remaining cervical soft tissues are normal in appearance. Mild degenerative changes of the cervical spine with endplate osteophytes and facet arthropathy. Upper Chest: No abnormalities in the visualized lung apices or upper mediastinum. CT/CT angio head neck IMPRESSION: No acute intracranial findings. No vascular abnormality identified.
[2022-05-14 20:51] VITALS: BP 164/95; PULSE 63; RESP 20; TEMP 36.7; O2SAT 98; BMI 32.3
--- NOTE | 2022-05-14 21:48 | ED.HA ---
HPI - Headache General Chief Complaint: Headache Stated Complaint: headache, took Excedrin- burning sensation on Larm Time Seen by Provider: 05/14/22 21:35 Source: patient Mode of arrival: ambulatory Limitations: no limitations History of Present Illness HPI Narrative: This is a 47 years old male who presented to the ED with chief complaint of headache headache is been present for 21 days, denies any fever chills vomiting denies any neck pain MD elicited complaint: headache Onset (ago): week(s) (3) Onset description: gradually Quality & Timing: aching Exacerbating factors: none Relieving factors: nothing Associated symptoms: none Related Data Home Medications Medication Instructions Recorded Confirmed metformin 500 mg tablet,extended 500 mg PO DAILY 12/23/21 05/03/22 release 24 hr Previous Rx's Medication Instructions Recorded rosuvastatin 10 mg tablet 10 mg PO DAILY #30 tabs 08/17/21 mirtazapine 7.5 mg tablet 7.5 mg PO BEDTIME 30 days #30 tabs 05/03/22 bisacodyl 5 mg tablet,delayed 10 mg PO ONCE 1 day #2 tabs 05/10/22 release (Dulcolax (bisacodyl)) polyethylene glycol 3350 17 238 g PO ONCE #238 grams 05/10/22 gram/dose oral powder (Miralax) Allergies Allergy/AdvReac Type Severity Reaction Status Date / Time atorvastatin AdvReac Severe Difficulty Verified 05/14/22 21:18 Breathing Review of Systems Constitutional: Constitutional: Reports no additional constitutional complaints ENT: Reports system reviewed and no additional complaints, except as documented Cardiovascular: Cardiovascular: Reports no additional cardiovascular complaints Respiratory: Respiratory: Reports no additional respiratory complaints Musculoskeletal: Musculoskeletal: Reports no additional musculoskeletal complaints PMFSH Past Medical History Medical History Diabetes mellitus Obesity (BMI 30-39.9) Pure hypercholesterolemia Surgical History No pertinent past surgical history Family History Family History Father Prediabetes Mother Schizophrenia Bipolar 1 disorder Maternal Grandfather Diabetes Daughter Epilepsy Maternal Grandmother Dementia Other Mental health problem Social History Social History Housing: Apartment Alcohol intake: never Patient Tobacco Use Status: Never used Tobacco e-Cigarette/Vaping Use: Never Used Second Hand Smoke Exposure: Yes Advance Directives: No Advance Directives Information Provided: No service: No Current occupational status: employed 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 Cognitive needs: No Hearing needs: No Vision needs: No Physical Exam Vital Signs: Vital Signs: Last Vital Signs Temp 98.7 F 05/15/22 00:13 Pulse 55 05/15/22 00:13 Resp 20 05/15/22 00:13 BP 162/78 H 05/15/22 00:13 Pulse Ox 98 05/15/22 00:13 O2 Del Method 05/15/22 00:13 BMI result Body Mass Index 32.3 Const: General: cooperative, healthy appearing, comfortable, no acute distress, well developed and alert Nutritional Appearance: average body habitus and well nourished Orientation/consciousness: patient oriented x3 Limitations: no limitations HEENT: Head: Yes normal to inspection Ears: hearing grossly normal bilaterally General nose exam: Normal external nose present Face and sinus: Yes normal facial exam Mouth: Normal oral and palatal mucosa present Throat: Yes posterior oropharynx normal Neck: Neck: Yes normal visual inspection and Yes full ROM Chest: Chest palpation & inspection: normal inspection of the chest Resp: Effort & Inspection: normal respiratory effort and able to speak in complete sentences Auscultation: clear to auscultation bilaterally Cardio: Jugular venous distension: no JVD Rate: regular rate Rhythm: regular rhythm GI: Inspection: Yes normal to inspection Palpation (GI): Soft to palpation Auscultation: normal bowel sounds Skin: General skin exam: no rashes or lesions noted and elasticity normal Rashes: no rashes Neuro: General: patient oriented x3 Course Reevaluation(s) Reevaluation #1: Remains stable in not acute distress waiting for the imaging assuming imaging negative reasonably can be discharged home Time: 00:04 Medications Administered Discontinued Medications Generic Name Dose Route Start Last Admin Trade Name Freq PRN Reason Stop Dose Admin Iohexol 70 ml 05/14/22 23:59 05/14/22 23:59 Iohexol 350 Mg/Ml 100 Ml Infus..Btl IV 05/15/22 00:00 70 ml ONCE ONE Administration Medical Decision Making Medical Decision Making MDM Narrative: Presented with 3 weeks of headache no fever we will get imaging Differential Diagnosis Migraines, tension headache, subarachnoid bleed, meningitis Lab Data MDM Lab Attestation statement: I reviewed the patient's lab results. 05/14/22 22:29 05/14/22 22:29 Labs: Lab Results 05/14/22 05/14/22 Range/Units 22:29 22:29 WBC 9.9 (4.8-10.8) X10*3/uL RBC 4.69 (4.60-5.80) X10*6/uL Hgb 13.9 L (14.0-18.0) g/dl Hct 41.4 L (42.0-52.0) % MCV 88.3 (80.0-98.0) fL MCH 29.6 (27.0-33.0) pg MCHC 33.6 (31.0-36.0) g/dl RDW 12.4 (11.0-16.0) % Plt Count 238 (160-400) X10*3/uL MPV 10.2 (9.4-12.4) fL Immature Gran % (Auto) 0.3 (0.0-0.4) % Neut % (Auto) 62.8 (45-73) % Lymph % (Auto) 27.3 (20-40) % [place] % (Auto) 8.0 (2-11) % Eos % (Auto) 1.4 (0-4) % Baso % (Auto) 0.2 (0-2) % Lymph # (Auto) 2.7 (1.2-4.9) X10*3/uL [place] # (Auto) 0.8 (0.1-1.2) X10*3/uL Eos # (Auto) 0.1 (0.0-0.4) X10*3/uL Baso # (Auto) 0.0 (0.0-0.2) X10*3/uL Abs Immat Gran (auto) 0.03 (0.00-0.03) X10*3/uL Absolute Neuts (auto) 6.2 (2.0-8.3) x10*3/uL Absolute Nucleated RBC 0.000 (0.0-0.012) X10*3/uL Nucleated RBC % (auto) 0.0 (0.0-0.2) /100WBC Sodium 142 (135-145) mmol/L Potassium 4.0 (3.3-5.1) mmol/L Chloride 105 (96-108) mmol/L Carbon Dioxide 28 (22-29) mmol/L Anion Gap 13 (12-20) BUN 14 (9-16) mg/dL Creatinine 1.02 (0.5-1.4) mg/dL Estim Creat Clear Calc 104.8 Estimated GFR > 60 Random Glucose 113 (60-115) mg/dL Calcium 9.2 (8.4-10.2) mg/dL Total Bilirubin 0.4 (0.0-1.0) mg/dL AST 17 (5-37) U/L ALT 23 (0-40) U/L Alkaline Phosphatase 72 (39-117) U/L Total Protein 6.3 L (6.5-8.0) g/dL Albumin 3.9 (3.5-5.0) g/dL Radiology Impression Discussion of test interpretation with radiology: I have reviewed the radiologist's reading. Radiologist Impression: ?or stenosis. Normal anterior communicating artery. Normal arborization of the middle cerebral arteries. CT Head: No intracranial mass, hemorrhage, extra-axial collection, or midline shift. The martin-white matter differentiation is preserved. No pathologic intra-axial enhancement or regional oligemia. No hydrocephalus. The mastoid air cells and paranasal sinuses remain well aerated. CT Neck: The thyroid gland and remaining cervical soft tissues are normal in appearance. Mild degenerative changes of the cervical spine with endplate osteophytes and facet arthropathy. Upper Chest: No abnormalities in the visualized lung apices or upper mediastinum. CT/CT angio head neck IMPRESSION: No acute intracranial findings. No vascular abnormality identified. ? Dictated By: Dao Heath MD Signed By: <Electronically signed by Dao Heath MD in OV> 05/15/22 0031 [id number]/ [id number] Independent Historian Clinical information obtained from an independent historian. History obtained from or confirmed by: Spouse External Record Review Overall the patient is stable his headache is chronic, I do not think this patient has meningitis he has no fever he is neck is supple, unlikely subarachnoid bleed because is no sudden subacute headache. Labs are normal including a WBC imaging negative I think is very reasonable to discharge the patient home with outpatient follow-up with the neurologist. Patient is in agreement with the plan spouse as well patient will be discharged home Tests considered The following testing was considered but not selected: I consider spinal tap however patient has no fever he has a normal white count supple neck this make viral or bacterial meningitis unlikely the risk of spinal tap with a weight benefit including post spinal headache Discharge Plan Discharge Clinical Impression: Headache Patient Disposition: Home, Self-Care Instructions: Acute Headache (ED) Additional Instructions: follow up with neurologist return if worse Prescriptions: No Action rosuvastatin 10 mg tablet 10 mg PO DAILY Qty: 30 3RF metformin 500 mg tablet extended release 24 hr 500 mg PO DAILY mirtazapine 7.5 mg tablet 7.5 mg PO BEDTIME 30 Days Qty: 30 5RF bisacodyl [Dulcolax (bisacodyl)] 5 mg tablet,delayed release (DR/EC) 10 mg PO ONCE 1 Days Qty: 2 0RF Rx Instructions: take 2 tabs at noon the day before your colonoscopy polyethylene glycol 3350 [Miralax] 17 gram/dose powder 238 g PO ONCE Qty: 238 0RF Rx Instructions: As directed by gastroenterology department at [facility] Referrals: Aden De Leon MD [Physician] - 3 days Interventions: ED Discharge Assessment Last Done: 05/15/22 02:35 Discharge Date/Time: 05/15/22 02:35
[2022-05-14 22:45] LABS: Basophils Percent Auto 0.2 % (0-2); Eosinophils Absolute Auto 0.1 X10*3/uL (0.0-0.4); Eosinophils Percent Auto 1.4 % (0-4); Hematocrit 41.4 % (42.0-52.0); Hemoglobin 13.9 g/dl (14.0-18.0); Imm Gran Abs Auto 0.03 X10*3/uL (0.00-0.03); Imm Gran Pct Auto 0.3 % (0.0-0.4); Lymphocytes Absolute Auto 2.7 X10*3/uL (1.2-4.9); Lymphocytes Percent Auto 27.3 % (20-40); MANUAL DIFF FLAG NO; Mean Corpuscular HGB Conc 33.6 g/dl (31.0-36.0); Mean Corpuscular Hemoglobin 29.6 pg (27.0-33.0); Mean Corpuscular Volume 88.3 fL (80.0-98.0); Mean Platelet Volume 10.2 fL (9.4-12.4); Monocytes Absolute Auto 0.8 X10*3/uL (0.1-1.2); Neutrophils Absolute Auto 6.2 x10*3/uL (2.0-8.3); Neutrophils Percent Auto 62.8 % (45-73); Platelet Count 238 X10*3/uL (160-400); Red Blood Count 4.69 X10*6/uL (4.60-5.80); Red Cell Distribution Width 12.4 % (11.0-16.0); White Blood Count 9.9 X10*3/uL (4.8-10.8)
[2022-05-14 22:59] LABS: Alanine Aminotransferase 23 U/L (0-40); Albumin Level 3.9 g/dL (3.5-5.0); Alkaline Phosphatase 72 U/L (39-117); Anion Gap 13 (12-20); Aspartate Amino Transferase 17 U/L (5-37); Bilirubin Total 0.4 mg/dL (0.0-1.0); Blood Urea Nitrogen 14 mg/dL (9-16); Calcium 9.2 mg/dL (8.4-10.2); Carbon Dioxide 28 mmol/L (22-29); Chloride 105 mmol/L (96-108); Creatinine Clr Calc Pharmacy 104.8; Estimated Glomerular Filt Rate > 60; Glucose Random 113 mg/dL (60-115); Sodium 142 mmol/L (135-145); Total Protein 6.3 g/dL (6.5-8.0)
[2022-05-14] MEDS: iohexoL 350 MG/ML 100 ML INFUS..BTL 70 ML IV (23:59)
[2022-05-15 00:13] VITALS: BP 162/78; PULSE 55; RESP 20; TEMP 37.1; O2SAT 98
--- NOTE | 2022-05-15 02:33 | PC.NURSE ---
I assumed nursing care of Brett at 2300 from NICOLE rincon. Since that time Brett has remained alert, oriented x 3, resting in bed with family at the bedside. Brett randolph ambulated to and from the bathroom independently and with steady gait. No chest pain. No SOb. SPeech clear and appropriate. No unilateral weakness. No nausea. No vomiting. Since I assumed care pt has been awaiting MD dispo and at this time he has been discharged. He verbalized an understanding of all DC orders and ambulated out of the ED independently and with steady gait.
== END 2022-05-15 02:35 | disposition home or self-care (01) ==
PROVIDERS: Emergency Provider Emergency Medicine; PCP Internal Medicine
DX: R51.9 Headache, unspecified (principal); E11.9 Type 2 diabetes mellitus without complications; E78.00 Pure hypercholesterolemia, unspecified; E66.9 Obesity, unspecified; Z68.32 Body mass index [BMI] 32.0-32.9, adult; Z79.84 Long term (current) use of oral hypoglycemic drugs; Z79.02 Long term (current) use of antithrombotics/antiplatelets; Z79.899 Other long term (current) drug therapy
CPT/HCPCS: 36415; 70496; 70498; 80053; 85025; 99283; 99284; Q9967

== ENCOUNTER 2022-08-27 06:07 | Outpatient (REF) | payer OTHER, SELFPAY ==
[2022-08-27 06:22] LABS: MANUAL DIFF FLAG NO
[2022-08-27 07:19] LABS: Basophils Percent Auto 0.1 % (0-2); Eosinophils Absolute Auto 0.2 X10*3/uL (0.0-0.4); Eosinophils Percent Auto 3.1 % (0-4); Hemoglobin 14.4 g/dl (14.0-18.0); Imm Gran Abs Auto 0.03 X10*3/uL (0.00-0.03); Imm Gran Pct Auto 0.4 % (0.0-0.4); Lymphocytes Absolute Auto 2.6 X10*3/uL (1.2-4.9); Lymphocytes Percent Auto 33.3 % (20-40); Mean Corpuscular HGB Conc 33.5 g/dl (31.0-36.0); Mean Corpuscular Hemoglobin 29.7 pg (27.0-33.0); Mean Corpuscular Volume 88.7 fL (80.0-98.0); Mean Platelet Volume 10.7 fL (9.4-12.4); Monocytes Absolute Auto 0.6 X10*3/uL (0.1-1.2); Monocytes Percent Auto 8.1 % (2-11); Neutrophils Absolute Auto 4.3 x10*3/uL (2.0-8.3); Platelet Count 239 X10*3/uL (160-400); Red Blood Count 4.85 X10*6/uL (4.60-5.80); Red Cell Distribution Width 12.4 % (11.0-16.0); White Blood Count 7.8 X10*3/uL (4.8-10.8)
[2022-08-27 07:44] LABS: Estimated Average Glucose 123 mg/dL; Hemoglobin A1C 159.3131 umol/L; Hemoglobin A1c % 5.9 %
[2022-08-27 08:01] LABS: Alanine Aminotransferase 22 U/L (0-40); Albumin Level 4.1 g/dL (3.5-5.0); Alkaline Phosphatase 62 U/L (39-117); Anion Gap 13 (12-20); Aspartate Amino Transferase 17 U/L (5-37); Bilirubin Total 1.1 mg/dL (0.0-1.0); Blood Urea Nitrogen 16 mg/dL (9-16); Calcium 9.4 mg/dL (8.4-10.2); Carbon Dioxide 27 mmol/L (22-29); Chloride 107 mmol/L (96-108); Cholesterol 169 mg/dL; Estimated Glomerular Filt Rate > 60; Glucose Fasting 101 mg/dL (60-99); HDL Cholesterol 50 mg/dL; LDL Cholesterol Calculated 99 mg/dl; Sodium 142 mmol/L (135-145); Total Protein 6.5 g/dL (6.5-8.0); Triglycerides 104 mg/dL
[2022-08-27 08:20] LABS: TSH reflex Free T4 2.36 uIU/mL (0.32-4.0); Vitamin D 25-OH Total 18.9 ng/mL (>30)
[2022-08-27 10:26] LABS: Appearance Urine Clear; Color Urine Yellow; Glucose Urine UA Negative (Negative); Leukocyte Esterase Urine Negative (Negative); Nitrite Urine Negative (Negative); PH 5.5 (5.0-9.0); Specific Gravity - Urine 1.025 (1.005-1.025); Urine Blood Negative (Negative); Urine Ketones Negative (Negative); Urine Protein Negative (Neg-Trace)
== END 2022-08-27 06:08 | disposition home or self-care (01) ==
LOC: HO.LAB 06:07
PROVIDERS: PCP Internal Medicine; Visit Provider Internal Medicine
DX: E55.9 Vitamin D deficiency, unspecified (principal); E78.00 Pure hypercholesterolemia, unspecified; R30.0 Dysuria; E11.9 Type 2 diabetes mellitus without complications; I10 Essential (primary) hypertension
CPT/HCPCS: 36415; 80053; 80061; 81003; 82306; 83036; 84443; 85025

== ENCOUNTER 2022-08-31 15:37 | Outpatient (AMB) | payer OTHER, SELFPAY ==
[2022-08-31 16:01] VITALS: BP 116/80; PULSE 71; O2SAT 97; BMI 33.9
--- NOTE | 2022-08-31 16:01 | A.OFFPC_ITS ---
Vital Signs 08/31/22 16:01 Height 5 ft 10 in Weight 236 lb 6 oz BMI 33.9 BP 116/80 Blood Pressure Location Lt brachial Position Sitting Pulse 71 Pulse Source Pulse Oximeter Pulse Oximetry (%) 97 Oxygen Delivery Method Room Air Intake Visit Reasons: 4m follow up Intake Note: Patient is here for a four months follow up. 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 Accompanied by: Self / Same As Patient Allergies atorvastatin Adverse Reaction (Severe, Verified 12/29/22 16:23) Difficulty Breathing mirtazapine Adverse Reaction (Intermediate, Verified 12/29/22 16:23) bad dreams Medication List - Last Reconciled 12/30/22 by Wilfredo Escobar MD cholecalciferol (vitamin D3) 50 mcg PO DAILY 90 days hydrocortisone 2.5% (Proctosol HC) 1 appl [place] BID-QID PRN metformin ER 500 mg PO BID rosuvastatin 10 mg PO DAILY Tobacco use date assessed: 08/31/22 HPI 4m follow up HPI Details Patient comes in today for his follow up visit States that he feels okay Notes that his recurrent headaches have improved a lot and he has hardly been getting them lately; denies any dizziness Denies any chest pains, no shortness of breath No nausea/vomiting, no abdominal pain No change in bowel habits noted Had his follow-up labs done a few days ago - to discuss his results [facility] Medical History (Updated 12/30/22 @ 05:36 by Wilfredo Escobar MD) Cervical disc disease Vitamin D deficiency Viral meningitis Diabetes mellitus Obesity (BMI 30-39.9) Pure hypercholesterolemia Surgical History Hx of colonoscopy No pertinent past surgical history Family History Father Prediabetes Mother Schizophrenia Bipolar 1 disorder Maternal Grandfather Diabetes Daughter Epilepsy Maternal Grandmother Dementia Other Mental health problem Social History Housing: Apartment Alcohol intake: never Patient Tobacco Use Status: Never used Tobacco e-Cigarette/Vaping Use: Never Used Second Hand Smoke Exposure: Yes service: No Current occupational status: employed 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 1. Little interest or pleasure in doing things: not at all 2. Feeling down, depressed, or hopeless: not at all 3. Trouble falling or staying asleep, or sleeping too much: not at all 4. Feeling tired or having little energy: not at all 5. Poor appetite or overeating: not at all 6. Feeling bad about yourself - or that you are a failure or have let yourself or your family down: not at all 7. Trouble concentrating on things, such as reading the newspaper or watching television: not at all 8. Moving or speaking so slowly that other people could have noticed. Or the opposite - being so fidgety or restless that you have been moving around a lot more than usual: not at all 9. Thoughts that you would be better off or of hurting yourself in some way: not at all Total score: 0 Depression Screening Interpretation: Negative 31268 - PHQ-9 Billing: Yes Source: Developed by Drs. Thomas Lopez, Jami Enciso, Nahid Hicks and colleagues, with an educational carmen from [email or web address]. Thrive Questionnaire Date Thrive assessed: 08/31/22 I am a: Patient What is your living situation today?: I have a steady place to live Within the past 12 months, did the food you bought not last and you didn't have the money to get more?: Never true Within the past 12 months, did you worry whether your food would run out before you got money to buy more?: Never true Do you have trouble paying for medicines?: No Do you have trouble getting transportation to medical appointments?: No Do you have trouble paying your heating and electricity bill?: No Do you have trouble taking care of your child, family member or friend?: No Do you have trouble with day-to-day activities such as bathing, preparing meals, shopping, managing finances, etc.?: No Are you currently unemployed and looking for a job?: No Are you interested in more education?: No Currently or been in a relationship where the following occur: no concerns reported AUDIT C Alcohol Use Questionnaire (AUDIT-C) 1. How often do you have a drink containing alcohol?: Never 3. How often do you have six or more drinks on one occasion?: Never Total Score: 0 Score Reviewed/Action Taken: Yes SEBASTIAN-7 AMB Questionnaire SEBASTIAN-7 Date SEBASTIAN - 7 assessed: 08/31/22 Feeling nervous, anxious, or on edge: 2 = More than half the days Not being able to stop or control worryin = Several days Worrying too much about different things: 2 = More than half the days Trouble relaxin = Several days Being so restless that it is hard to sit still: 1 = Several days Becoming easily annoyed or irritable: 2 = More than half the days Feeling afraid as if something awful might happen: 3 = Nearly every day Total SEBASTIAN-7 score (0-4 normal; 5-9 mild; 10-14 moderate; 15-21 severe): 12 Source: Developed by Drs. Thomas Lopez, Jami Enciso, Nahid Hicks and colleagues, with an educational carmen from [email or web address]. SEBASTIAN-7 Assessment Billing SEBASTIAN-7 Assessment Tool: SEBASTIAN-7 Assessment 40938 Review of Systems Const Denies chills, Denies fatigue, Denies fever(s) and Reports headache(s) (states that his headaches rarely occur now) ENT Denies dysphagia, Denies dizziness, Denies otalgia, Reports headache(s) (states that his headaches rarely occur now), Denies neck pain, Denies odynophagia and Denies sore throat Card Denies chest pain, Denies palpitations and Denies dyspnea Resp Denies cough and Denies dyspnea GI Denies abdominal pain, Denies constipation, Denies dysphagia, Denies heartburn, Denies diarrhea, Denies nausea, Denies odynophagia and Denies vomiting Denies dysuria and Denies nocturia Musc Denies back pain and Denies neck pain Neuro Denies dizziness and Reports headache(s) (states that his headaches rarely occur now) Endo Denies fatigue and Denies palpitations Physical exam (Primary Care) Vital Signs: Last Vital Signs Pulse 71 08/31/22 16:01 BP 116/80 08/31/22 16:01 Pulse Ox 97 08/31/22 16:01 Oxygen Delivery Method Room Air 08/31/22 16:01 BMI result Body Mass Index 33.9 Tobacco/Smoking Status: Tobacco use Status Tobacco use date assessed 08/31/22 08/31/22 16:06 Patient Tobacco Use Status Never used Tobacco 08/31/22 16:06 e-Cigarette/Vaping Use Never Used 08/31/22 16:06 PHQ-9: PHQ-9 Score PHQ-9: Total score 0 08/31/22 16:42 Depression Screening Interpretation: Negative Thrive Assessment: Date of Thrive Assessment Date Thrive assessed 08/31/22 08/31/22 16:06 Currently or been in a relationship where the following occur: no concerns reported Const General: no acute distress and alert HENMT Ears: TM's normal bilaterally and EAC's normal Throat: Yes posterior oropharynx normal and Yes tonsils normal (no TP congestion) Neck Neck: Yes no lymphadenopathy and Yes supple Resp Auscultation: clear to auscultation bilaterally, no rales and no wheezes Cardio Rate: regular rate Rhythm: regular rhythm Heart sounds: no murmurs GI Palpation (GI): Soft to palpation, nontender and No hepatosplenomegaly present Skin General skin exam: no rashes or lesions noted Extrem General: Yes no clubbing, cyanosis or edema Results Reviewed Results Reviewed: Laboratory Tests 08/27/22 08/27/22 08/27/22 06:20 06:21 06:21 WBC 7.8 Hgb 14.4 Hct 43.0 Plt Count 239 Sodium 142 Potassium 5.0 D Creatinine 0.95 Estimated GFR > 60 Fasting Glucose 101 H Hemoglobin A1c % Calcium 9.4 AST 17 ALT 22 Triglycerides 104 Cholesterol 169 LDL Cholesterol, Calc 99 HDL Cholesterol 50 25-OH Vitamin D Total 18.9 TSH 2.36 Ur Specific [place] 1.025 Urine Protein Negative Urine Glucose (UA) Negative Urine Blood Negative 08/27/22 06:21 WBC Hgb Hct Plt Count Sodium Potassium Creatinine Estimated GFR Fasting Glucose Hemoglobin A1c % 5.9 Calcium AST ALT Triglycerides Cholesterol LDL Cholesterol, Calc HDL Cholesterol 25-OH Vitamin D Total TSH Ur Specific [place] Urine Protein Urine Glucose (UA) Urine Blood Assessment and Plan Assessment & Plan (1) Pure hypercholesterolemia: Code(s): E78.00 - Pure hypercholesterolemia, unspecified Plan: Results of his labs done a few days ago reviewed and discussed with patient Reinforced low cholesterol diet Continue Rosuvastatin 10 mg QD Will recheck his labs and fasting lipids in 4 months for follow up (2) Diabetes mellitus: Code(s): E11.9 - Type 2 diabetes mellitus without complications Qualifiers: Diabetes mellitus type: type 2 Diabetes mellitus prison insulin use: without prison use Diabetes mellitus complication status: without complication Qualified Code(s): E11.9 - Type 2 diabetes mellitus without complications Plan: HgbA1c was at 5.9% on his labs done a few days ago (In-office HgbA1c was previously at 5.6% earlier this year) - goal is HgbA1c of < 7.0% Reinforced diabetic diet Continue Metformin ER 500 mg QD (3) Vitamin D deficiency: Code(s): E55.9 - Vitamin D deficiency, unspecified Plan: Advised that his vitamin D level was low on his recent labs Will start him on Vitamin D3 2000 units QD (4) Headache: Code(s): R51.9 - Headache, unspecified Qualifiers: Headache type: unspecified Headache chronicity pattern: unspecified pattern Intractability: not intractable Qualified Code(s): R51.9 - Headache, unspecified Plan: Resolved Patient contracted viral meningitis earlier this year and his headaches were most likely a sequelae of his bout with meningitis but they have since gradually subsided and resolved (5) Cervical disc disease: Code(s): M50.90 - Cervical disc disorder, unspecified, unspecified cervical region Plan: States that his neck has not been bothering him too much lately Cervical spine x-rays done back in 2019 revealed (+) narrowing of the intervertebral disc spaces suggest underlying degenerative disc disease (6) Anxiety: Code(s): F41.9 - Anxiety disorder, unspecified Plan: He was started on Mirtazapine 7.5 mg Q HS earlier this year but he stopped taking this after a while and states that he has not had any problems since and that his anxiety has been a lot better lately Does not feel that he needs anything at this time - feels that his anxiety was mostly due to his bout with meningitis earlier this year (7) Obesity (BMI 30-39.9): Code(s): E66.9 - Obesity, unspecified Plan: Reinforced diet/exercise as tolerated/ lose weight Plan To return as scheduled in 4 months for his next annual physical examination Orders: Orders Complete Blood Count Auto Diff 12/17/22 I10 - Essential (primary) hypertension, Z00.00 - Encounter for general adult medical examination without abnormal findings Comprehensive [place]. Panel Fast 12/17/22 E78.00 - Pure hypercholesterolemia, unsp ecified, Z00.00 - Encounter for general adult medical examination without abnormal findings Lipid Panel 12/17/22 E78.00 - Pure hypercholesterolemia, unspecified, Z00.00 - Encounter for general adult medical examination without abnormal findings TSH reflex Free T4 12/17/22 E78.00 - Pure hypercholesterolemia, unspecified, Z00.00 - Encounter for general adult medical examination without abnormal findings UA CC w/rflx Micro + Cult 12/17/22 R30.0 - Dysuria, Z00.00 - Encounter for general adult medical examination without abnormal findings Hemoglobin A1c 12/17/22 E11.9 - Type 2 diabetes mellitus without complications, Z00.00 - Encounter for general adult medical examination without abnormal findings Vitamin D 25-OH Total 12/17/22 E55.9 - Vitamin D deficiency, unspecified, Z00.00 - Encounter for general adult medical examination without abnormal findings Prostate Specific Antigen Scr 12/17/22 Z00.00 - Encounter for general adult medical examination without abnormal findings Medications: New cholecalciferol (vitamin D3) 50 mcg PO DAILY 90 caps 3RF 90 days E55.9 - Vitamin D deficiency, unspecified Coding Level of Care Code Est Pt Level 4 (99245) Diagnoses Pure hypercholesterolemia E78.00 Type 2 diabetes mellitus without complication, without long-term current use of insulin E11.9 Diabetes mellitus type: type 2 Diabetes mellitus prison insulin use: without tank terminal gauger use Diabetes mellitus complication status: without complication Vitamin D deficiency E55.9 Nonintractable headache, unspecified chronicity pattern, unspecified headache type R51.9 Headache type: unspecified Headache chronicity pattern: unspecified pattern Intractability: not intractable Cervical disc disease M50.90 Anxiety F41.9 Obesity (BMI 30-39.9) E66.9 Additional Codes SEBASTIAN-7 Assessment Billing - SEBASTIAN-7 Assessment Tool: SEBASTIAN-7 Assessment [id number] ([id number])
== END 2022-08-31 16:46 | disposition home or self-care (01) ==
LOC: HO.HMGH 15:37
PROVIDERS: PCP Internal Medicine; Visit Provider Internal Medicine
DX: E11.9 Type 2 diabetes mellitus without complications (principal); E55.9 Vitamin D deficiency, unspecified; F41.9 Anxiety disorder, unspecified; E78.00 Pure hypercholesterolemia, unspecified; R51.9 Headache, unspecified; M50.90 Cervical disc disorder, unspecified, unspecified cervical region; E66.9 Obesity, unspecified
CPT/HCPCS: 99214

== ENCOUNTER 2022-12-07 08:59 | Day surgery (SDC) | payer OTHER, SELFPAY ==
[2022-12-03 10:56] VITALS: BMI 33.6
--- NOTE | 2022-12-07 08:59 | HO.ANESPROP2 ---
HPI - Anesthesia Eval Consult details Narrative: colonoscopy PMFSH Active Problems Active Problems: All Active Problems (Updated 05/17/22 @ 02:40 by Wilfredo Escobar MD) Anxiety (Acute) Fatigue (Acute) Headache (Acute) Annual physical exam (Acute) Lumbar radiculopathy (Acute) Cervical radiculopathy (Acute) Left lateral epicondylitis (Acute) Strain of cervical portion of trapezius muscle (Acute) Neck pain on right side (Acute) Colon cancer screening (Acute) Diabetes mellitus (Acute) Obesity (BMI 30-39.9) (Acute) Pure hypercholesterolemia (Acute) Past Medical History Medical History Diabetes mellitus Obesity (BMI 30-39.9) Pure hypercholesterolemia Family History Family History Father Prediabetes Mother Schizophrenia Bipolar 1 disorder Maternal Grandfather Diabetes Daughter Epilepsy Maternal Grandmother Dementia Other Mental health problem Family history of problems with anesthesia: No Surgical History Surgical History No pertinent past surgical history History of Problems with Anesthesia: No Social History Social History Housing: Apartment Alcohol intake: never Patient Tobacco Use Status: Never used Tobacco e-Cigarette/Vaping Use: Never Used Second Hand Smoke Exposure: Yes service: No Current occupational status: employed 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 Cognitive needs: No Hearing needs: No Vision needs: No Meds Allergies Allergy/AdvReac Type Severity Reaction Status Date / Time atorvastatin AdvReac Severe Difficulty Verified 08/31/22 16:02 Breathing mirtazapine AdvReac Intermediate bad dreams Verified 08/31/22 16:40 Exam Exam Date and Time: December 07, 2022 0859 Height,Weight and Vital Signs: Height 5 ft 10 in Weight 106.141 kg Airway Mallampati Class: II TM Dist: >3cm Neck ROM: Limited Heart: rrr Lungs: cta Assessment and Plan Assessment Anesthesia Assessment: Anesthesia Plan Discussed and Chart Reviewed Final Anesthetic Review Family History of Problems with Anesthesia: No History of Problems with Anesthesia: No NPO: Yes ASA Class: III Final Preanesthetic Review: No Changes in Pt Med Stat, Meds/Allgs Chart Reviewed and Anes Risks/Benef Reviewed Patient Risk: Intermediate Procedure Risk: Low Anesthetic Plan Anesthetic Plan: MAC: and Agree w/ Assess. and Plan Disposition: Standard PACU
--- NOTE | 2022-12-07 09:04 | P.HPSUR_ITS ---
Pre-Procedural Eval Section A Date of Service: 12/07/22 Section B Chief Complaint: screening Relevant Family History (Specify if Yes): No Relevant Social History: None Present Medications: see Short Stay Collaborative assessment Medical History: Significant History (Diabetes mellitus Obesity (BMI 30-39.9) Pure hypercholesterolemia) History of Previous Operations: No relevant previous surgery Allergies: Allergies Allergy/AdvReac Type Severity Reaction Status Date / Time atorvastatin AdvReac Severe Difficulty Verified 08/31/22 16:02 Breathing mirtazapine AdvReac Intermediate bad dreams Verified 08/31/22 16:40 Review of Systems Sugical H&P ROS: Negative: Constitution, Cardiovascular, Respiratory, Neurological, Psychiatric, Hem-Onc, Allergic/Immunologic, Gastrointestinal, Genitourinary, Musculoskeletal, Integumentary, Endocrine and Eyes/Ears/Nos e/Throat Exam Surgical H&P Exam: Normal: HEENT, Normal: Heart, Normal: Lungs, Normal: Extremities, Normal: Abdomen, Normal: Skin and Normal: Neurological Plan Diagnosis/Plan: Unchanged I have reviewed the history and physical and performed a pertinent physical examination on my patient. No changes have occurred unless specified. Time Spent With Patient Time: Total time managing care of this patient today ____ minutes.
[2022-12-07 09:24] VITALS: BP 129/79; PULSE 71; RESP 16; TEMP 36.6; O2SAT 96
[2022-12-07] MEDS: Lactated Ringers 500 ML 20 ML IVCONT (09:32)
[2022-12-07 10:00] LABS: Glucose, Whole Blood 102 mg/dL (60-115)
--- NOTE | 2022-12-07 10:00 | W.PM.OPN ---
Operative Note Operative Note Date of Service: 12/07/22 Narrative: Operative Information Procedure Description: Colonoscopy Indication: screening Anesthesia: MAC COLONOSCOPY Instrument: Olympus variable stiffness pediatric scope 190L Colonoscopy Monitoring: Vital signs and clinical assessment, continuous EKG monitoring, Pulse oximetry, Carbon Dioxide monitoring and blood pressure monitoring were done throughout the procedure. Colon withdrawal time was 12 minutes. Procedure: The patient was placed in the left lateral decubitis position and pre-procedure medications were administered. After a digital rectal examination of the ano-rectum, the video colonoscope was inserted into the rectum and advanced through the colon to the cecum/TI. The colonoscope was slowly withdrawn in a retrograde panoramic fashion and the colon mucosa was carefully examined including a retroflexed view of the rectum. Findings and interventions are described below. Procedure Difficulty: easy Findings: Terminal Ileum-normal Cecum:normal Right sided retroflexion, normal Ascending Colon: normal Transverse Colon -normal Descending Colon:normal Sigmoid Colon: normal Rectum: Retroflexion with medium sized internal hemorrhoids, grade I, at rectosigmoid junction approx 189 cm from anal verge a smooth contoured polypoid lesion was noted measuring about 12 mm. This was injected with epinephrine and then removed with cold snare. x 2 clips placed for hemostasis and then kiesha ink injected adjacent to the resection site. Anorectum - normal Colon preparation: [place] Bowel Preparation Scale Right colon; 2 Transverse colon: 3 Left colon; 3 (0 = Unprepared colon segment with mucosa not seen due to solid stool that cannot be cleared. 1 = Portion of mucosa of the colon segment seen, but other areas of the colon segment not well seen due to staining, residual stool and/or opaque liquid. 2 = Minor amount of residual staining, small fragments of stool and/or opaque liquid, but mucosa of colon segment seen well. 3 = Entire mucosa of colon segment seen well with no residual staining, small fragments of stool or opaque liquid) Impression and Post Procedure Diagnosis: polyp internal hemorrhoids Plan: High fiber diet leaflet Avoid straining at stool, epsom salts and sitz bath, anusol supps or cream Repeat Colonoscopy in 3-5 years due to polypoid lesion or earlier if clinically indicated Above findings were reviewed with the patient and relevant handouts were provided if indicated.
[2022-12-07 10:45] VITALS: BP 126/76; PULSE 57; RESP 16; TEMP 36.4; O2SAT 97
[2022-12-07 11:00] VITALS: BP 123/97; PULSE 51; RESP 16; TEMP 36.4; O2SAT 99
== END 2022-12-07 11:44 | disposition home or self-care (01) ==
PROVIDERS: PCP Internal Medicine; Visit Provider Internal Medicine Gastroenterology
PROC: 0DJD8ZZ Inspection of Lower Intestinal Tract, Via Natural or Artificial Opening Endoscopic (ICD-10-PCS; CPT 45378; principal; 2022-12-07 10:10)
DX: Z12.11 Encounter for screening for malignant neoplasm of colon (principal); D12.7 Benign neoplasm of rectosigmoid junction; K64.0 First degree hemorrhoids; E11.9 Type 2 diabetes mellitus without complications; E78.00 Pure hypercholesterolemia, unspecified; E66.9 Obesity, unspecified; Z68.33 Body mass index [BMI] 33.0-33.9, adult; Z88.8 Allergy status to other drugs, medicaments and biological substances
CPT/HCPCS: 45385; 45381; 82947; 88305; 88341; 88342; J0171

== ENCOUNTER → 2022-12-07 08:59 | Outpatient (BNV) | payer OTHER, SELFPAY | PROVIDERS: PCP Internal Medicine; Visit Provider Internal Medicine Gastroenterology | DX: Z12.11 Encounter for screening for malignant neoplasm of colon (principal); D12.8 Benign neoplasm of rectum | CPT/HCPCS: 45381; 45385 ==

== ENCOUNTER 2022-12-22 08:24 | Outpatient (AMB) | payer SELFPAY ==
--- NOTE | 2022-12-22 08:33 | MHC.OFFVIS ---
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 Denies any issues with anesthesia in the past.? Denies any history of sleep apnea.? No history infectious diseases in the past or present.? Not on any anticoagulation therapy.? No family or personal history of colon cancer.? Patient denies melena, hematochezia, unintentional weight loss or ribbon like stools.? Discussed at length the pre-procedure,? prep, diet & medications as well as what to expect prior, during and after the procedure.?? Stressed the importance of good bowel prep. ?Recommended the use of Vaseline or Calmoseptine OTC & baby wipes with bowel movements to promote comfort.? ?Patient verbalizes understanding and agrees to plan of care.? He was given the opportunity to ask questions and all questions answered.? We will see him after the procedure.? Plan Medications New bisacodyl (Dulcolax (bisacodyl)) take 2 tabs at noon the day before your colonoscopy 10 mg (2 x 5 mg) PO ONCE 1 day 2 tabs 0RF Z12.11 polyethylene glycol 3350 (Miralax) As directed by gastroenterology department at [facility] 238 grams PO ONCE 238 grams 0RF Z12.11 COLONOSCOPY Findings: Terminal Ileum-normal Cecum:normal Right sided retroflexion, normal Ascending Colon: normal Transverse Colon -normal Descending Colon:normal Sigmoid Colon:? normal Rectum: Retroflexion with medium sized internal hemorrhoids, grade I, at rectosigmoid junction approx 189 cm from anal verge a smooth contoured polypoid lesion was noted measuring about 12 mm. This was injected with epinephrine and then removed with cold snare. x 2 clips placed for hemostasis and then kiesha ink injected adjacent to the resection site. Anorectum - normal Colon preparation: [place] Bowel Preparation Scale Right colon; 2 Transverse colon: 3 Left colon; 3 (0 = Unprepared colon segment with mucosa not seen due to solid stool that cannot be cleared. 1 = Portion of mucosa of the colon segment seen, but other areas of the colon segment not well seen due to staining, residual stool and/or opaque liquid. 2 = Minor amount of residual staining, small fragments of stool and/or opaque liquid, but mucosa of colon segment seen well. 3 = Entire mucosa of colon segment seen well with no residual staining, small fragments of stool or opaque liquid) Impression and Post Procedure Diagnosis: polyp internal hemorrhoids Plan: High fiber diet leaflet Avoid straining at stool, epsom salts and sitz bath, anusol supps or cream Repeat Colonoscopy in 3-5 years due to polypoid lesion or earlier if clinically indicated PATHOLOGY: Diagnosis Colon, rectosigmoid, polypectomy:? Colonic mucosa with benign submucosal leiomyoma, no evidence of malignancy. TODAY'S VISIT Patient is here today for follow-up and to discuss colonoscopy results. Patient denies any ill effects from the prep, anesthesia or procedure itself. Patient reports occasional postprandial abdominal bloating. Denies dyspepsia, dysphagia or odynophagia. Denies melena, hematochezia, unintentional weight loss or ribbon like stools. Patient states that he has been feeling well. Changed his diet completely. Eating more vegetables, drinking plenty of water. He moving his bowels daily. Occasional loose stools postprandially, however patient states that he is eating more fiber and drinking vegetable smoothies and states that it is most likely because of those changes. Patient denies any GI concerning symptoms [facility] Medical History Diabetes mellitus Obesity (BMI 30-39.9) Pure hypercholesterolemia Viral meningitis Surgical History Hx of colonoscopy No pertinent past surgical history Family History Father Prediabetes Mother Schizophrenia Bipolar 1 disorder Maternal Grandfather Diabetes Daughter Epilepsy Maternal Grandmother Dementia Other Mental health problem Social History Housing: Apartment Alcohol intake: never Patient Tobacco Use Status: Never used Tobacco e-Cigarette/Vaping Use: Never Used Second Hand Smoke Exposure: Yes service: No Current occupational status: employed 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 Cognitive needs: No Hearing needs: No Vision needs: No Review of Systems Const Denies weight gain and Denies weight loss ENT Reports no additional complaints, Denies dysphagia and Denies odynophagia Card Reports no additional complaints Resp Reports no additional complaints GI Denies abdominal pain, Denies belching, Denies melena, Denies bloating, Denies change in bowel habits, Denies dysphagia, Denies excessive flatus, Denies dyspepsia, Denies heartburn, Denies diarrhea, Reports loose stools (Occasional), Denies nausea, Denies odynophagia and Denies vomiting Reports no additional complaints Musc Reports no additional complaints Neuro Reports no additional complaints Psych Reports no additional complaints Endo Reports no additional complaints Physical Exam Vital Signs: Last Vital Signs Pulse 60 12/22/22 08:34 BP 135/86 12/22/22 08:34 BMI result Body Mass Index 34.1 Const General: healthy appearing, no acute distress and well developed Nutritional Appearance: obese Orientation/consciousness: patient oriented x3 HEENT Head: Yes normal to inspection, Yes normocephalic and Yes atraumatic Face and sinus: Yes normal facial exam Mouth: Normal oral and palatal mucosa present Throat: Yes posterior oropharynx normal, Yes tonsils normal and Yes uvula midline Eyes General: appearance normal, both eyes and all related structures Neck Neck: Yes normal visual inspection, Yes full ROM and Yes trachea midline Thyroid: Thyroid normal Resp Effort & Inspection: normal respiratory effort, able to speak in complete sentences, no tracheal deviation and symmetric chest movement Auscultation: clear to auscultation bilaterally Cardio Rate: regular rate Heart sounds: S1 normal heart sound present and S2 normal heart sound present GI Inspection: Yes normal to inspection, No distended and Yes obesity Palpation (GI): Soft to palpation, not firm, nontender and No hepatosplenomegaly present Auscultation: normal bowel sounds General: Yes no CVA tenderness Back/Spine/Pelvis Back: no CVA tenderness Skin General skin exam: elasticity normal, turgor normal and dry skin Neuro General: patient oriented x3 Psych Appearance: grossly normal Mental Status: mental status grossly normal Speech and movement: Normal speech and movement present Assessment & Plan Assessment & Plan (1) Status post colonoscopy: Code(s): Z98.890 - Other specified postprocedural states Plan: Patient denies any ill effects from the prep, anesthesia or procedure itself. One lesion seen in rectum, 12 mm. Recommendation was made for patient to return in 3 years. No malignancy found on biopsy. Patient will return in our office on as needed basis. He is agreeable to this plan and verbalizes understanding of instructions. He was given the opportunity to ask questions and all questions answered. Thank you for allowing me to participate in his care Medications: New hydrocortisone 2.5% (Proctosol HC) 1 appl [place] BID-QID PRN 30 grams 2RF hemorrhoids K64.9 - Unspecified hemorrhoids Coding Level of Care Code Est Pt Level 3 (59476) Diagnoses Status post colonoscopy Z98.890 Time Spent (min) 25 Comment 15 minutes spent with patient and additional 10 minutes spent reviewing his records
[2022-12-22 08:34] VITALS: BP 135/86; PULSE 60; BMI 34.1
== END 2022-12-22 09:00 | disposition home or self-care (01) ==
PROVIDERS: PCP Internal Medicine; Visit Provider Nurse Practitioner Family
DX: Z98.890 Other specified postprocedural states (principal)
CPT/HCPCS: 99213

== ENCOUNTER → 2022-12-22 08:24 | Outpatient (BNVA) | payer OTHER, SELFPAY | PROVIDERS: PCP Internal Medicine; Visit Provider Nurse Practitioner Family | DX: K64.9 Unspecified hemorrhoids (principal); Z98.890 Other specified postprocedural states | CPT/HCPCS: 99212 ==

== ENCOUNTER 2022-12-29 15:35 | Outpatient (AMB) | payer OTHER, SELFPAY ==
--- NOTE | 2022-12-29 15:40 | A.OFFPC_ITS ---
Vital Signs 12/29/22 15:42 Height 5 ft 10 in Weight 232 lb BMI 33.3 BP 132/80 Blood Pressure Location Lt brachial Position Sitting Intake Visit Reasons: Annual Physical Intake Note: Patient here for a physical exam Coper Hand Required: No Accompanied by: Self / Same As Patient Allergies atorvastatin Adverse Reaction (Severe, Verified 12/29/22 16:23) Difficulty Breathing mirtazapine Adverse Reaction (Intermediate, Verified 12/29/22 16:23) bad dreams Medication List - Last Reconciled 12/29/22 by Wilfredo Escobar MD cholecalciferol (vitamin D3) 50 mcg PO DAILY 90 days hydrocortisone 2.5% (Proctosol HC) 1 appl [place] BID-QID PRN metformin ER 500 mg PO BID rosuvastatin 10 mg PO DAILY Tobacco use date assessed: 08/31/22 Dental Screening Dental Screen Date: 12/29/22 Did you have a dental visit in the last 12 months?: Yes Did you have a dental problem in the last 6 months where you did not have access to dental care?: No Was dental information given to patient?: Patient has dentist HPI Annual Physical HPI Details Patient comes in today for his annual physical examination States that he feels okay He denies any headaches or dizziness - states that his previous recurrent headaches from when he contracted viral meningitis earlier this year have resolved a while back Denies any chest pains, no shortness of breath No nausea/vomiting, no abdominal pain No change in bowel habits noted He denies any acute urinary symptoms Had his screening colonoscopy done a few weeks ago in November 2022 - was advised that his colonoscopy came out normal and he is recommended to get it repeated in 3 to 5 years Adds that his right heel has been hurting for about 2 weeks now Notes that the pain usually feels worse when he flexes his foot / ankle but he does not experience any pain when he extends his ankle States that the pain in his heel also feel worse in the morning when he first gets up and would then gradually ease up as he starts walking more Relates that he changed out his old shoes a few days ago and started wearing a new pair with better padding on the soles, and that the pain in his right heel is just starting to feel better over the past couple of days He was not able to get his follow up labs done yet [facility] Medical History (Updated 12/30/22 @ 05:19 by Wilfredo Escobar MD) Cervical disc disease Vitamin D deficiency Viral meningitis Diabetes mellitus Obesity (BMI 30-39.9) Pure hypercholesterolemia Surgical History Hx of colonoscopy No pertinent past surgical history Family History Father Prediabetes Mother Schizophrenia Bipolar 1 disorder Maternal Grandfather Diabetes Daughter Epilepsy Maternal Grandmother Dementia Other Mental health problem Social History Housing: Apartment Alcohol intake: never Patient Tobacco Use Status: Never used Tobacco e-Cigarette/Vaping Use: Never Used Second Hand Smoke Exposure: Yes service: No Current occupational status: employed 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 1. Little interest or pleasure in doing things: not at all 2. Feeling down, depressed, or hopeless: not at all 3. Trouble falling or staying asleep, or sleeping too much: not at all 4. Feeling tired or having little energy: not at all 5. Poor appetite or overeating: not at all 6. Feeling bad about yourself - or that you are a failure or have let yourself or your family down: not at all 7. Trouble concentrating on things, such as reading the newspaper or watching t elevision: not at all 8. Moving or speaking so slowly that other people could have noticed. Or the opposite - being so fidgety or restless that you have been moving around a lot more than usual: not at all 9. Thoughts that you would be better off or of hurting yourself in some way: not at all Total score: 0 Depression Screening Interpretation: Negative 83364 - PHQ-9 Billing: Yes Source: Developed by Drs. Thomas Lopez, Jami Enciso, Nahid Hicks and colleagues, with an educational carmen from [employer]. Thrive Questionnaire Date Thrive assessed: 12/29/22 I am a: Patient What is your living situation today?: I have a steady place to live Within the past 12 months, did the food you bought not last and you didn't have the money to get more?: Never true Within the past 12 months, did you worry whether your food would run out before you got money to buy more?: Never true Do you have trouble paying for medicines?: No Do you have trouble getting transportation to medical appointments?: No Do you have trouble paying your heating and electricity bill?: No Do you have trouble taking care of your child, family member or friend?: No Do you have trouble with day-to-day activities such as bathing, preparing meals, shopping, managing finances, etc.?: No Are you currently unemployed and looking for a job?: No Are you interested in more education?: No Currently or been in a relationship where the following occur: no concerns reported AUDIT C Alcohol Use Questionnaire (AUDIT-C) 1. How often do you have a drink containing alcohol?: Never 3. How often do you have six or more drinks on one occasion?: Never Total Score: 0 Score Reviewed/Action Taken: Yes SEBASTIAN-7 AMB Questionnaire SEBASTIAN-7 Date SEBASTIAN - 7 assessed: 08/31/22 Source: Developed by Drs. Thomas Lopez, Jami Enciso, Nahid Hicks and colleagues, with an educational carmen from [employer]. Review of Systems Const Denies chills, Denies fatigue, Denies fever(s), Denies headache(s), Denies malaise and Denies weakness Eyes Denies blurry vision, Denies change in vision, Denies irritation and Denies itchy eyes ENT Denies dysphagia, Denies dizziness, Denies otalgia, Denies headache(s), Denies nasal congestion, Denies neck pain, Denies odynophagia and Denies sore throat Card Denies chest pain, Denies rapid heart rate, Denies irregular heart rhythm, Denies palpitations and Denies dyspnea Resp Denies chest congestion, Denies cough, Denies dyspnea and Denies wheezing GI Denies abdominal pain, Denies bloating, Denies constipation, Denies dysphagia, Denies heartburn, Denies diarrhea, Denies nausea, Denies odynophagia and Denies vomiting Reports change in libido (feels that his libido is lower than it should be at times), Denies hematuria, Denies difficulty urinating, Denies dysuria, Denies urinary frequency and Denies urinary urgency Musc Details: (+) pain over his right heel - see HPI Denies back pain, Denies arthralgias, Denies joint swelling, Denies muscle weakness and Denies neck pain Skin/Breast Denies change in pigmentation, Denies lesions, Denies rash and Denies unusual bruising Neuro Denies dizziness, Denies headache(s), Denies paresthesias and Denies weakness Psych Reports change in libido (feels that his libido is lower than it should be at times) Endo Reports change in libido (feels that his libido is lower than it should be at times), Denies fatigue and Denies palpitations Aller/Immun Denies itchy eyes and Denies wheezing Physical exam (Primary Care) Vital Signs: Last Vital Signs BP 132/80 12/29/22 15:42 BMI result Body Mass Index 33.3 Tobacco/Smoking Status: Tobacco use Status Tobacco use date assessed 08/31/22 12/29/22 15:48 Patient Tobacco Use Status Never used Tobacco 12/29/22 15:48 e-Cigarette/Vaping Use Never Used 12/29/22 15:48 Depression Screening Interpretation: Negative Thrive Assessment: Date of Thrive Assessment Date Thrive assessed 08/31/22 12/29/22 15:48 Currently or been in a relationship where the following occur: no concerns reported Const General: no acute distress, alert and awake Orientation/consciousness: patient oriented x3 HENMT Head: Yes normocephalic and Yes atraumatic Ears: external ears normal, TM's normal bilaterally and EAC's normal General nose exam: No nasal discharge present Face and sinus: Yes normal facial exam and Yes sinuses nontender Teeth and gingiva: dentition normal Throat: Yes posterior oropharynx normal and Yes tonsils normal (no TP congestion) Eyes Eyelids: Yes eyelids normal Conjunctivae: conjunctivae normal Pupils: Equal, round and reactive pupils present EOM: EOMs intact bilaterally Neck Neck: Yes no lymphadenopathy and Yes supple Thyroid: Thyroid normal Resp Auscultation: clear to auscultation bilaterally, no rales and no wheezes Cardio Rate: regular rate Rhythm: regular rhythm Heart sounds: no murmurs GI Palpation (GI): Soft to palpation, nontender and No hepatosplenomegaly present Auscultation: normal bowel sounds General: Yes no CVA tenderness Back/Spine/Pelvis Back: no CVA tenderness Thoracic/Lumbar Spine: thoracic and lumbar spine normal to inspection Skin Lesions: no lesions Rashes: no rashes Neuro General: patient oriented x3, moves all extremities, no focal motor deficits and CN's II-XI intact bilaterally Cranial nerves: Yes Equal, round and reactive pupils present Cognition (Neuro): normal cognition Gait exam (Neuro): Normal gait present Extrem General: Yes no clubbing, cyanosis or edema Right lower extremity: foot Details: tenderness Location: of the calcaneus Results AMB Hemoglobin A1c AMB Hemoglobin A1c 5.8 % Last Edit by KATIE Olson on 12/29/22 15:5 2 Results Reviewed Results Reviewed: Laboratory Last Values Hgb A1c (Clinic) 5.8 % (4.0-6.0) 12/29/22 15:40 Assessment and Plan Assessment & Plan (1) Annual physical exam: Code(s): Z00.00 - Encounter for general adult medical examination without abnormal findings Plan: Patient is advised to get his previously ordered labs done JOSUE Per request, will also have him check his serum testoserone level as he feels that his libido is not as it was before Just had his screening colonoscopy done last month (November 2022) and was advised to get it repeated in 3 to 5 years (2) Pure hypercholesterolemia: Code(s): E78.00 - Pure hypercholesterolemia, unspecified Plan: Will also have patient recheck his fasting lipids JOSUE Reinforced low cholesterol diet Continue Rosuvastatin 10 mg QD Will recheck his labs and fasting lipids in 6 months for follow up (3) Diabetes mellitus: Code(s): E11.9 - Type 2 diabetes mellitus without complications Qualifiers: Diabetes mellitus type: type 2 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: without laborer marine terminal use Diabetes mellitus complication status: without complication Qualified Code(s): E11.9 - Type 2 diabetes mellitus without complications Plan: HgbA1c was at 5.9% a few months ago (In-office HgbA1c was previously at 5.6%) - goal is HgbA1c of < 7.0% Reinforced diabetic diet Continue Metformin ER 500 mg QD (4) Vitamin D deficiency: Code(s): E55.9 - Vitamin D deficiency, unspecified Plan: Continue Vitamin D3 2000 units QD (5) Cervical disc disease: Code(s): M50.90 - Cervical disc disorder, unspecified, unspecified cervical region Plan: States that his neck has not been bothering him too much lately Cervical spine x-rays done back in 2020 revealed (+) narrowing of the intervertebral disc spaces suggest underlying degenerative disc disease (6) Anxiety: Code(s): F41.9 - Anxiety disorder, unspecified Plan: He was started on Mirtazapine 7.5 mg Q HS earlier this year but he stopped taking this after a while and states that he has not had any problems since and that his anxiety has been a lot better lately Does not feel that he needs anything at this time - feels that his anxiety was mostly due to his bout with meningitis earlier this year (7) Obesity (BMI 30-39.9): Code(s): E66.9 - Obesity, unspecified Plan: Reinforced diet/exercise as tolerated/ lose weight Plan Follow up in 6 months Orders: Orders Lipid Panel 6 Months E78.00 - Pure hypercholesterolemia, unspecified Hemoglobin A1c 6 Months E11.9 - Type 2 diabetes mellitus without complications AMB Hemoglobin A1c 12/29/22 E11.9 - Type 2 diabetes mellitus without complications Testosterone, Free/Total 12/29/22 R79.89 - Other specified abnormal findings of blood chemistry Comprehensive [place]. Panel Fast 6 Months E78.00 - Pure hypercholesterolemia, unspecified Coding Level of Care Code Est Pt Prev Care 40-64y(27450) Diagnoses Annual physical exam Z00.00 Pure hypercholesterolemia E78.00 Type 2 diabetes mellitus without complication, without long-term current use of insulin E11.9 Diabetes mellitus type: type 2 Diabetes mellitus halfway insulin use: without halfway use Diabetes mellitus complication status: without complication Vitamin D deficiency E55.9 Cervical disc disease M50.90 Anxiety F41.9 Obesity (BMI 30-39.9) E66.9
[2022-12-29 15:42] VITALS: BP 132/80; BMI 33.3
== END 2022-12-29 16:40 | disposition home or self-care (01) ==
PROVIDERS: Visit Provider Internal Medicine
DX: E11.9 Type 2 diabetes mellitus without complications (principal)
CPT/HCPCS: 83036; 99396

== ENCOUNTER 2023-01-12 09:07 | Outpatient (REF) | payer OTHER, SELFPAY ==
[2023-01-12 09:35] LABS: MANUAL DIFF FLAG NO
[2023-01-12 10:10] LABS: Basophils Percent Auto 0.1 % (0-2); Eosinophils Absolute Auto 0.2 X10*3/uL (0.0-0.4); Eosinophils Percent Auto 2.2 % (0-4); Hematocrit 43.8 % (42.0-52.0); Hemoglobin 14.7 g/dl (14.0-18.0); Imm Gran Abs Auto 0.02 X10*3/uL (0.00-0.03); Imm Gran Pct Auto 0.3 % (0.0-0.4); Lymphocytes Absolute Auto 2.2 X10*3/uL (1.2-4.9); Lymphocytes Percent Auto 33.4 % (20-40); Mean Corpuscular HGB Conc 33.6 g/dl (31.0-36.0); Mean Corpuscular Hemoglobin 29.8 pg (27.0-33.0); Mean Corpuscular Volume 88.7 fL (80.0-98.0); Mean Platelet Volume 10.7 fL (9.4-12.4); Monocytes Absolute Auto 0.7 X10*3/uL (0.1-1.2); Monocytes Percent Auto 10.2 % (2-11); Neutrophils Absolute Auto 3.6 x10*3/uL (2.0-8.3); Neutrophils Percent Auto 53.8 % (45-73); Platelet Count 239 X10*3/uL (160-400); Red Blood Count 4.94 X10*6/uL (4.60-5.80); Red Cell Distribution Width 12.5 % (11.0-16.0); White Blood Count 6.7 X10*3/uL (4.8-10.8)
[2023-01-12 10:33] LABS: Appearance Urine Clear; Color Urine Yellow; Glucose Urine UA Negative (Negative); Leukocyte Esterase Urine Negative (Negative); Nitrite Urine Negative (Negative); PH 5.5 (5.0-9.0); Specific Gravity - Urine 1.025 (1.005-1.025); Urine Blood Negative (Negative); Urine Ketones Negative (Negative); Urine Protein Negative (Neg-Trace)
[2023-01-12 10:51] LABS: Alanine Aminotransferase 21 U/L (0-40); Albumin Level 4.3 g/dL (3.5-5.0); Alkaline Phosphatase 63 U/L (39-117); Anion Gap 11 (12-20); Aspartate Amino Transferase 16 U/L (5-37); Bilirubin Total 0.8 mg/dL (0.0-1.0); Blood Urea Nitrogen 13 mg/dL (9-16); Calcium 9.7 mg/dL (8.4-10.2); Carbon Dioxide 28 mmol/L (22-29); Chloride 105 mmol/L (96-108); Cholesterol 159 mg/dL (<200); Estimated Glomerular Filt Rate > 60; Glucose Fasting 104 mg/dL (60-99); HDL Cholesterol 53 mg/dL (>40); LDL Cholesterol Calculated 91 mg/dL (<100); Potassium 4.2 mmol/L (3.3-5.1); Sodium 140 mmol/L (135-145); Total Protein 7.1 g/dL (6.5-8.0); Triglycerides 77 mg/dL (<150)
[2023-01-12 10:53] LABS: TSH reflex Free T4 1.79 uIU/mL (0.32-4.0)
[2023-01-12 10:55] LABS: Prostate Specific Antigen Scr 0.87 ng/mL (<0.05-4.0)
[2023-01-17 14:48] LABS: Testosterone, Free 55.7 pg/mL (35.0-155.0); Testosterone, Total 398 ng/dL (250-1100)
== END 2023-01-12 09:08 | disposition home or self-care (01) ==
LOC: HO.LAB 09:07
PROVIDERS: PCP Internal Medicine; Visit Provider Internal Medicine
DX: Z00.00 Encounter for general adult medical examination without abnormal findings (principal); I10 Essential (primary) hypertension; E78.00 Pure hypercholesterolemia, unspecified; R30.0 Dysuria; E55.9 Vitamin D deficiency, unspecified; R79.89 Other specified abnormal findings of blood chemistry
CPT/HCPCS: 36415; 80053; 80061; 81003; 82306; 84153; 84402; 84403; 84443; 85025

== ENCOUNTER 2023-06-27 09:53 | Outpatient (REF) | payer OTHER, SELFPAY ==
[2023-06-27 12:16] LABS: Estimated Average Glucose 117 mg/dL; Hemoglobin A1c % 5.7 % (<6.0)
[2023-06-27 12:47] LABS: Alanine Aminotransferase 21 U/L (0-40); Albumin Level 4.2 g/dL (3.5-5.0); Alkaline Phosphatase 61 U/L (39-117); Anion Gap 11 (12-20); Aspartate Amino Transferase 15 U/L (5-37); Bilirubin Total 0.5 mg/dL (0.0-1.0); Blood Urea Nitrogen 16 mg/dL (9-16); Calcium 9.9 mg/dL (8.4-10.2); Carbon Dioxide 30 mmol/L (22-29); Chloride 106 mmol/L (96-108); Cholesterol 233 mg/dL (<200); Estimated Glomerular Filt Rate > 60; Glucose Fasting 99 mg/dL (60-99); HDL Cholesterol 62 mg/dL (>40); LDL Cholesterol Calculated 153 mg/dL (<100); Potassium 5.1 mmol/L (3.3-5.1); Sodium 142 mmol/L (135-145); Total Protein 7.1 g/dL (6.5-8.0); Triglycerides 92 mg/dL (<150)
== END 2023-06-27 09:54 | disposition home or self-care (01) ==
LOC: HO.LAB 09:53
PROVIDERS: PCP Internal Medicine; Visit Provider Internal Medicine
DX: E78.00 Pure hypercholesterolemia, unspecified (principal); E11.9 Type 2 diabetes mellitus without complications
CPT/HCPCS: 36415; 80053; 80061; 83036

== ENCOUNTER 2023-06-29 15:49 | Outpatient (AMB) | payer OTHER, SELFPAY ==
--- NOTE | 2023-06-29 15:49 | MHC.PC.OV ---
Vital Signs 06/29/23 15:50 Height 5 ft 10 in Weight 237 lb BMI 34.0 BP 122/84 Blood Pressure Location Lt brachial Position Sitting Pulse 67 Pulse Source Pulse Oximeter Pulse Oximetry (%) 97 Oxygen Delivery Method Room Air Intake Visit Reasons: hyperlipidemia, DM Test Borer Required: No Accompanied by: Self / Same As Patient Allergies atorvastatin Adverse Reaction (Severe, Verified 06/29/23 16:02) Difficulty Breathing mirtazapine Adverse Reaction (Intermediate, Verified 06/29/23 16:02) bad dreams rosuvastatin Adverse Reaction (Intermediate, Verified 06/29/23 16:10) increased headaches Medication List - Last Reconciled 06/29/23 by Wilfredo Escobar MD cholecalciferol (vitamin D3) 50 mcg PO DAILY 90 days hydrocortisone 2.5% (Proctosol HC) 1 appl NV BID-QID PRN sumatriptan succinate take 1 tab at onset of headache; if no relief may repeat 1 tab after at least 2 hrs; max = 4 tabs/24 hr PO Tobacco use date assessed: 06/29/23 Dental Screening Dental Screen Date: 06/29/23 Did you have a dental visit in the last 12 months?: Yes Did you have a dental problem in the last 6 months where you did not have access to dental care?: No Was dental information given to patient?: Patient has dentist HPI hyperlipidemia, DM HPI Details Patient comes in today for his follow up visit States that he feels okay He denies any headaches or dizziness Denies any chest pains, no SOB No nausea/vomiting, no abdominal pain No change in bowel habits noted Had his follow up labs done a couple of days ago - to discuss his results Relates that he stopped taking his Rosuvastatin a while back as he felt that the medication was causing him to experience increased headaches and muscle pains - states that his symptoms went away immediately as soon as he stopped taking the medication He also stopped taking Metformin ER after getting the okay from us to try coming off of it and see how his blood sugar does without the medication - states that he did not seem to have had any issues so far as he feels that his blood sugar has remained well-controlled since [facility] Medical History Cervical disc disease Vitamin D deficiency Viral meningitis Diabetes mellitus Obesity (BMI 30-39.9) Pure hypercholesterolemia Surgical History Hx of colonoscopy No pertinent past surgical history Family History Father Prediabetes Mother Schizophrenia Bipolar 1 disorder Maternal Grandfather Diabetes Daughter Epilepsy Maternal Grandmother Dementia Other Mental health problem Social History Housing: Apartment Alcohol intake: never Patient Tobacco Use Status: Never used Tobacco e-Cigarette/Vaping Use: Never Used Second Hand Smoke Exposure: Yes service: No Current occupational status: employed 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 1. Little interest or pleasure in doing things: not at all 2. Feeling down, depressed, or hopeless: not at all 3. Trouble falling or staying asleep, or sleeping too much: not at all 4. Feeling tired or having little energy: not at all 5. Poor appetite or overeating: not at all 6. Feeling bad about yourself - or that you are a failure or have let yourself or your family down: not at all 7. Trouble concentrating on things, such as reading the newspaper or watching television: not at all 8. Moving or speaking so slowly that other people could have noticed. Or the opposite - being so fidgety or restless that you have been moving around a lot more than usual: not at all 9. Thoughts that you would be better off or of hurting yourself in some way: not at all Total score: 0 Depression Screening Interpretation: Negative Depression Screening Done: Yes 43616 - PHQ-9 Billing: Yes Source: Developed by Drs. Thomas Lopez, Jami Enciso, Nahid Hicks and colleagues, with an educational carmen from [employer]. Thrive Questionnaire Date Thrive assessed: 06/29/23 I am a: Patient What is your living situation today?: I have a steady place to live Within the past 12 months, did the food you bought not last and you didn't have the money to get more?: Never true Within the past 12 months, did you worry whether your food would run out before you got money to buy more?: Never true Do you have trouble paying for medicines?: No Do you have trouble getting transportation to medical appointments?: No Do you have trouble paying your heating and electricity bill?: No Do you have trouble taking care of your child, family member or friend?: No Do you have trouble with day-to-day activities such as bathing, preparing meals, shopping, managing finances, etc.?: No Are you currently unemployed and looking for a job?: No Are you interested in more education?: No Please select the resources that you would like help with: None Currently or been in a relationship where the following occur: no concerns reported THRIVE Score: 0 AUDIT C Alcohol Use Questionnaire (AUDIT-C) 1. How often do you have a drink containing alcohol?: Never 3. How often do you have six or more drinks on one occasion?: Never Total Score: 0 Score Reviewed/Action Taken: Yes SEBASTIAN-7 AMB Questionnaire SEBASTIAN-7 Date SEBASTIAN - 7 assessed: 06/29/23 Feeling nervous, anxious, or on edge: 0 = Not at all Not being able to stop or control worryin = Not at all Worrying too much about different things: 0 = Not at all Trouble relaxin = Not at all Being so restless that it is hard to sit still: 0 = Not at all Becoming easily annoyed or irritable: 0 = Not at all Feeling afraid as if something awful might happen: 0 = Not at all Total SEBASTIAN-7 score (0-4 normal; 5-9 mild; 10-14 moderate; 15-21 severe): 0 Source: Developed by Drs. Thomas Lopez, Jami Enciso, Nahid Hicks and colleagues, with an educational caremn from [employer]. Review of Systems Const Denies chills, Denies fatigue, Denies fever(s) and Denies headache(s) ENT Denies dysphagia, Denies dizziness, Denies otalgia, Denies headache(s), Denies neck pain, Denies odynophagia and Denies sore throat Card Denies chest pain, Denies palpitations and Denies dyspnea Resp Denies cough and Denies dyspnea GI Denies abdominal pain, Denies constipation, Denies dysphagia, Denies heartburn, Denies diarrhea, Denies nausea, Denies odynophagia and Denies vomiting Denies dysuria, Denies nocturia and Denies urinary frequency Musc Denies back pain, Denies arthralgias and Denies neck pain Skin/Breast Denies rash Neuro Denies dizziness and Denies headache(s) Endo Denies fatigue and Denies palpitations Physical exam (Primary Care) Vital Signs: Last Vital Signs Pulse 67 06/29/23 15:50 BP 122/84 06/29/23 15:50 Pulse Ox 97 06/29/23 15:50 Oxygen Delivery Method Room Air 06/29/23 15:50 BMI result Body Mass Index 34.0 Tobacco/Smoking Status: Tobacco use Status Tobacco use date assessed 06/29/23 06/29/23 15:55 Patient Tobacco Use Status Never used Tobacco 06/29/23 15:55 e-Cigarette/Vaping Use Never Used 06/29/23 15:55 PHQ-9: PHQ-9 Score PHQ-9: Total score 0 06/29/23 16:18 Depression Screening Interpretation: Negative Thrive Assessment: Date of Thrive Assessment Date Thrive assessed 06/29/23 06/29/23 15:55 Currently or been in a relationship where the following occur: no concerns reported Const General: no acute distress and alert HENMT Ears: TM's normal bilaterally and EAC's normal Throat: Yes posterior oropharynx normal and Yes tonsils normal (no TP congestion noted) Neck Neck: Yes no lymphadenopathy and Yes supple Thyroid: Thyroid normal Resp Auscultation: clear to auscultation bilaterally, no rales and no wheezes Cardio Rate: regular rate Rhythm: regular rhythm Heart sounds: no murmurs GI Palpation (GI): Soft to palpation and nontender Auscultation: normal bowel sounds General: Yes no CVA tenderness Back/Spine/Pelvis Back: no CVA tenderness Skin Rashes: no rashes Extrem General: Yes no clubbing, cyanosis or edema Results Reviewed Results Reviewed: Laboratory Tests 01/12/23 01/12/23 06/27/23 09: 09:27 10:22 Sodium 142 Potassium 5.1 Creatinine 0.90 Estimated GFR > 60 Fasting Glucose 99 Hemoglobin A1c % 5.7 Calcium 9.9 AST 15 ALT 21 Triglycerides 92 Cholesterol 159 233 H LDL Cholesterol, Calc 91 153 H HDL Cholesterol 06/27/23 10:22 Sodium Potassium Creatinine Estimated GFR Fasting Glucose Hemoglobin A1c % Calcium AST ALT Triglycerides Cholesterol LDL Cholesterol, Calc HDL Cholesterol 62 Assessment and Plan Assessment & Plan (1) Pure hypercholesterolemia: Code(s): E78.00 - Pure hypercholesterolemia, unspecified Plan: Results of his labs done a couple of days ago reviewed and discussed with patient - cautioned that his cholesterol levels have again increased significantly from previous as patient stopped taking his Rosuvastatin a few months ago due to side effects (headaches and myalgia) Reinforced low cholesterol diet Patient would like to try diet modification for a while longer before trying medications again - states that he will try harder to work on his diet this time compared to before Will recheck his labs and fasting lipids in 6 months for follow up - advised that if he really is unable to get his cholesterol numbers to goal with diet modification alone, there are other medications available (Ezetimibe and the newer PCSK9 inhibitors) that are not related to the statins (2) Diabetes mellitus: Code(s): E11.9 - Type 2 diabetes mellitus without complications Qualifiers: Diabetes mellitus type: type 2 Diabetes mellitus manager long term care insulin use: without penitentiary use Diabetes mellitus complication status: without complication Qualified Code(s): E11.9 - Type 2 diabetes mellitus without complications Plan: HgbA1c was at 5.7% on his labs done a couple of days ago (was previously at 5.9% last year) - goal is HgbA1c of < 7.0% Reinforced diabetic diet Patient stopped taking his Metformin ER 500 mg QD back in January 2023 after getting the okay from us to try stopping it and it looks like his glycemic control has not gotten any worse since Advised that if he can continue to keep his HgbA1c at 5.8% or less, then he does not need any Rx and can continue on diet modification alone (3) Vitamin D deficiency: Code(s): E55.9 - Vitamin D deficiency, unspecified Plan: Continue Vitamin D3 2000 units QD (4) Cervical disc disease: Code(s): M50.90 - Cervical disc disorder, unspecified, unspecified cervical region Plan: Cervical spine x-rays done back in 2019 revealed (+) narrowing of the intervertebral disc spaces suggest underlying degenerative disc disease Patient states that his neck (pain) has not been bothering him too much lately so no intervention is needed at this time (5) Anxiety: Code(s): F41.9 - Anxiety disorder, unspecified Plan: He was started on Mirtazapine 7.5 mg Q HS last year year but he stopped taking this after a while and did not feel that he's had any problems since He has not had any bouts of anxiety over the past several months now and does not feel that he needs anything else at this time - feels that his anxiety earlier last year was mostly due to his bout with meningitis then (6) Obesity (BMI 30-39.9): Code(s): E66.9 - Obesity, unspecified Plan: Reinforced diet/exercise as tolerated/ lose weight Plan Follow up in 6 months Orders: Orders Complete Blood Count Auto Diff 6 Months D64.9 - Anemia, unspecified Hemoglobin A1c 6 Months E11.9 - Type 2 diabetes mellitus without complications TSH reflex Free T4 6 Months E78.00 - Pure hypercholesterolemia, unspecified UA CC w/rflx Micro + Cult 6 Months R30.0 - Dysuria Prostate Specific Antigen Scr 6 Months Z00.00 - Encounter for general adult medical examination without abnormal findings Comprehensive [place]. Panel Fast 6 Months E78.00 - Pure hypercholesterolemia, unspecified Lipid Panel 6 Months E78.00 - Pure hypercholesterolemia, unspecified Vitamin D 25-OH Total 6 Months E55.9 - Vitamin D deficiency, unspecified Coding Level of Care Code Est Pt Level 4 (41999) Diagnoses Pure hypercholesterolemia E78.00 Type 2 diabetes mellitus without complication, without long-term current use of insulin E11.9 Diabetes mellitus type: type 2 Diabetes mellitus manager long term care insulin use: without manager long term care use Diabetes mellitus complication status: without complication Vitamin D deficiency E55.9 Cervical disc disease M50.90 Anxiety F41.9 Obesity (BMI 30-39.9) E66.9
[2023-06-29 15:50] VITALS: BP 122/84; PULSE 67; O2SAT 97; BMI 34.0
== END 2023-06-29 16:21 | disposition home or self-care (01) ==
PROVIDERS: PCP Internal Medicine; Visit Provider Internal Medicine
DX: E78.00 Pure hypercholesterolemia, unspecified (principal); E11.9 Type 2 diabetes mellitus without complications; E55.9 Vitamin D deficiency, unspecified; M50.90 Cervical disc disorder, unspecified, unspecified cervical region; F41.9 Anxiety disorder, unspecified
CPT/HCPCS: 99214

== ENCOUNTER 2023-12-27 09:46 | Outpatient (REF) | payer OTHER, SELFPAY ==
[2023-12-27 10:04] LABS: MANUAL DIFF FLAG NO
[2023-12-27 10:57] LABS: Basophils Percent Auto 0.1 % (0-2); Eosinophils Absolute Auto 0.1 X10*3/uL (0.0-0.4); Eosinophils Percent Auto 1.5 % (0-4); Hematocrit 43.9 % (42.0-52.0); Hemoglobin 14.8 g/dl (14.0-18.0); Imm Gran Abs Auto 0.02 X10*3/uL (0.00-0.03); Imm Gran Pct Auto 0.3 % (0.0-0.4); Lymphocytes Absolute Auto 2.1 X10*3/uL (1.2-4.9); Mean Corpuscular HGB Conc 33.7 g/dl (31.0-36.0); Mean Corpuscular Hemoglobin 30.2 pg (27.0-33.0); Mean Corpuscular Volume 89.6 fL (80.0-98.0); Mean Platelet Volume 10.6 fL (9.4-12.4); Monocytes Absolute Auto 0.6 X10*3/uL (0.1-1.2); Monocytes Percent Auto 8.4 % (2-11); Neutrophils Absolute Auto 4.1 x10*3/uL (2.0-8.3); Neutrophils Percent Auto 59.7 % (45-73); Platelet Count 249 X10*3/uL (160-400); Red Cell Distribution Width 12.5 % (11.0-16.0); White Blood Count 6.9 X10*3/uL (4.8-10.8)
[2023-12-27 11:17] LABS: Appearance Urine Clear; Color Urine Yellow; Glucose Urine UA Negative (Negative); Leukocyte Esterase Urine Negative (Negative); Nitrite Urine Negative (Negative); PH 5.5 (5.0-9.0); Specific Gravity - Urine 1.025 (1.005-1.025); Urine Blood Negative (Negative); Urine Ketones Negative (Negative); Urine Protein Negative (Neg-Trace)
[2023-12-27 11:26] LABS: Estimated Average Glucose 123 mg/dL; Hemoglobin A1c % 5.9 % (<6.0)
[2023-12-27 11:56] LABS: Prostate Specific Antigen Scr 0.63 ng/mL (<0.05-4.0)
[2023-12-27 12:13] LABS: Alanine Aminotransferase 22 U/L (0-40); Albumin Level 4.3 g/dL (3.5-5.0); Alkaline Phosphatase 68 U/L (39-117); Anion Gap 11 (12-20); Aspartate Amino Transferase 16 U/L (5-37); Bilirubin Total 0.5 mg/dL (0.0-1.0); Blood Urea Nitrogen 15 mg/dL (9-16); Calcium 9.8 mg/dL (8.4-10.2); Carbon Dioxide 28 mmol/L (22-29); Chloride 107 mmol/L (96-108); Cholesterol 212 mg/dL (<200); Estimated Glomerular Filt Rate > 60; Glucose Fasting 101 mg/dL (60-99); HDL Cholesterol 58 mg/dL (>40); LDL Cholesterol Calculated 135 mg/dL (<100); Potassium 4.8 mmol/L (3.3-5.1); Sodium 141 mmol/L (135-145); Total Protein 7.2 g/dL (6.5-8.0); Triglycerides 95 mg/dL (<150)
== END 2023-12-27 09:47 | disposition home or self-care (01) ==
LOC: HO.LAB 09:46
PROVIDERS: PCP Internal Medicine; Visit Provider Internal Medicine
DX: Z00.00 Encounter for general adult medical examination without abnormal findings (principal); D64.9 Anemia, unspecified; E11.9 Type 2 diabetes mellitus without complications; R30.0 Dysuria; E78.00 Pure hypercholesterolemia, unspecified; E55.9 Vitamin D deficiency, unspecified
CPT/HCPCS: 36415; 80053; 80061; 81003; 82306; 83036; 84153; 84443; 85025

== ENCOUNTER 2023-12-30 16:29 | Outpatient (AMB) | payer OTHER, SELFPAY ==
[2023-12-30 16:30] VITALS: BP 122/80; PULSE 78; O2SAT 98; BMI 33.1
--- NOTE | 2023-12-30 16:30 | A.OFFPC_ITS ---
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 Required: No Accompanied by: Self / Same As Patient Allergies atorvastatin Adverse Reaction (Severe, Verified 12/30/23 17:17) Difficulty Breathing mirtazapine Adverse Reaction (Intermediate, Verified 12/30/23 17:17) bad dreams rosuvastatin Adverse Reaction (Intermediate, Verified 12/30/23 17:17) increased headaches Medication List - Last Reconciled 12/30/23 by Wilfredo Escobar MD cholecalciferol (vitamin D3) 50 mcg PO DAILY 90 days hydrocortisone 2.5% (Proctosol HC) 1 appl IN BID-QID PRN rosuvastatin 5 mg orally every other day - patient takes Rx this way by choice sumatriptan succinate take 1 tab at onset of headache; if no relief may repeat 1 tab after at least 2 hrs; max = 4 tabs/24 hr PO Tobacco use date assessed: 12/30/23 Dental Screening Dental Screen Date: 12/30/23 Did you have a dental visit in the last 12 months?: Yes Did you have a dental problem in the last 6 months where you did not have access to dental care?: No Was dental information given to patient?: Patient has dentist HPI hyperlipidemia, DM, migraine HPI Details Patient comes in today for his follow up visit States that he feels okay States that his recent symptoms of numbness and weakness in his arms and tingling sensations in his legs have all cleared up now - he eventually figured out that these were triggered from trimming hedges around his property for the past few weeks and he most likely strained himself in the process He denies any headaches or dizziness Denies any chest pains, no SOB No nausea/vomiting, no abdominal pain No change in bowel habits noted Needs his Vitamin D Rx refilled - states that he ran out of this a while back and has not taken it since He had his follow up labs done a few days ago - to discuss his results [facility] Medical History Cervical disc disease Vitamin D deficiency Viral meningitis Diabetes mellitus Obesity (BMI 30-39.9) Pure hypercholesterolemia Surgical History (Updated 12/30/23 @ 18:09 by Wilfredo Escobar MD) Hx of colonoscopy No pertinent past surgical history Family History Father Prediabetes Mother Schizophrenia Bipolar 1 disorder Maternal Grandfather Diabetes Daughter Epilepsy Maternal Grandmother Dementia Other Mental health problem Social History Housing: Apartment Alcohol intake: never Patient Tobacco Use Status: Never used Tobacco e-Cigarette/Vaping Use: Never Used Second Hand Smoke Exposure: Yes service: No Current occupational status: employed 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 1. Little interest or pleasure in doing things: not at all 2. Feeling down, depressed, or hopeless: not at all 3. Trouble falling or staying asleep, or sleeping too much: not at all 4. Feeling tired or having little energy: not at all 5. Poor appetite or overeating: not at all 6. Feeling bad about yourself - or that you are a failure or have let yourself or your family down: not at all 7. Trouble concentrating on things, such as reading the newspaper or watching television: not at all 8. Moving or speaking so slowly that other people could have noticed. Or the opposite - being so fidgety or restless that you have been moving around a lot more than usual: not at all 9. Thoughts that you would be better off or of hurting yourself in some way: not at all Total score: 0 Depression Screening Interpretation: Negative Depression Screening Done: Yes 57627 - PHQ-9 Billing: Yes Source: Developed by Drs. Thomas Lopez, Jami Enciso, Nahid Hicks and colleagues, with an educational carmen from [employer]. Thrive Questionnaire Date Thrive assessed: 12/30/23 I am a: Patient What is your living situation today?: I have a steady place to live Within the past 12 months, did the food you bought not last and you didn't have the money to get more?: Never true Within the past 12 months, did you worry whether your food would run out before you got money to buy more?: Never true Do you have trouble paying for medicines?: No Do you have trouble getting transportation to medical appointments?: No Do you have trouble paying your heating and electricity bill?: No Do you have trouble taking care of your child, family member or friend?: No Do you have trouble with day-to-day activities such as bathing, preparing meals, shopping, managing finances, etc.?: No Are you currently unemployed and looking for a job?: No Are you interested in more education?: No Please select the resources that you would like help with: None Currently or been in a relationship where the following occur: No concerns reported THRIVE Score: 0 AUDIT C Alcohol Use Questionnaire (AUDIT-C) 1. How often do you have a drink containing alcohol?: Monthly or less 2. How many drinks containing alcohol do you have on a typical day when you are drinking?: 1 or 2 3. How often do you have six or more drinks on one occasion?: Never Total Score: 1 Score Reviewed/Action Taken: Yes SEBASTIAN-7 AMB Questionnaire SEBASTIAN-7 Date SEBASTIAN - 7 assessed: 12/30/23 Feeling nervous, anxious, or on edge: 0 = Not at all Not being able to stop or control worryin = Not at all Worrying too much about different things: 0 = Not at all Trouble relaxin = Not at all Being so restless that it is hard to sit still: 0 = Not at all Becoming easily annoyed or irritable: 0 = Not at all Feeling afraid as if something awful might happen: 0 = Not at all Total SEBASTIAN-7 score (0-4 normal; 5-9 mild; 10-14 moderate; 15-21 severe): 0 Source: Developed by Drs. Thomas Lopez, Jami Enciso, Nahid Hicks and colleagues, with an educational carmen from [employer]. Review of Systems Const Denies chills, Denies fatigue, Denies fever(s) and Denies headache(s) ENT Denies dysphagia, Denies dizziness, Denies otalgia, Denies headache(s), Denies neck pain, Denies odynophagia and Denies sore throat Card Denies chest pain, Denies palpitations and Denies dyspnea Resp Denies cough and Denies dyspnea GI Denies abdominal pain, Denies constipation, Denies dysphagia, Denies heartburn, Denies diarrhea, Denies nausea, Denies odynophagia and Denies vomiting Denies dysuria, Denies nocturia and Denies urinary frequency Musc Denies back pain, Denies arthralgias and Denies neck pain Skin/Breast Denies rash Neuro Denies dizziness and Denies headache(s) Endo Denies fatigue and Denies palpitations Physical exam (Primary Care) Vital Signs: Last Vital Signs Pulse 78 12/30/23 16:30 BP 122/80 12/30/23 16:30 Pulse Ox 98 12/30/23 16:30 Oxygen Delivery Method Room Air 12/30/23 16:30 BMI result Body Mass Index 33.1 Tobacco/Smoking Status: Tobacco use Status Tobacco use date assessed 12/30/23 12/30/23 16:31 Patient Tobacco Use Status Never used Tobacco 12/30/23 16:31 e-Cigarette/Vaping Use Never Used 12/30/23 16:31 PHQ-9: PHQ-9 Score PHQ-9: Total score 0 12/30/23 16:31 Depression Screening Interpretation: Negative Thrive Assessment: Date of Thrive Assessment Date Thrive assessed 12/30/23 12/30/23 16:31 Currently or been in a relationship where the following occur: No concerns reported Const General: no acute distress and alert HENMT Ears: TM's normal bilaterally and EAC's normal Throat: Yes posterior oropharynx normal and Yes tonsils normal (no TP congestion noted) Neck Neck: Yes no lymphadenopathy and Yes supple Thyroid: Thyroid normal Resp Auscultation: clear to auscultation bilaterally, no rales and no wheezes Cardio Rate: regular rate Rhythm: regular rhythm Heart sounds: no murmurs GI Palpation (GI): Soft to palpation and nontender Auscultation: normal bowel sounds General: Yes no CVA tenderness Back/Spine/Pelvis Back: no CVA tenderness Skin Rashes: no rashes Extrem General: Yes no clubbing, cyanosis or edema Results Reviewed Results Reviewed: Laboratory Tests 12/27/23 12/27/23 10:00 10:01 WBC 6.9 Hgb 14.8 Hct 43.9 Plt Count 249 Sodium 141 Potassium 4.8 Creatinine 0.86 Estimated GFR > 60 Fasting Glucose 101 H Hemoglobin A1c % 5.9 Calcium 9.8 AST 16 ALT 22 Triglycerides 95 Cholesterol 212 H LDL Cholesterol, Calc 135 H HDL Cholesterol 58 PSA Screen 0.63 25-OH Vitamin D Total 25.0 L TSH 1.70 Ur Specific [place] 1.025 Urine Protein Negative Urine Glucose (UA) Negative Urine Blood Negative Urine Nitrite Negative Ur Leukocyte Esterase Negative Assessment and Plan Assessment & Plan (1) Pure hypercholesterolemia: Code(s): E78.00 - Pure hypercholesterolemia, unspecified Plan: Results of his labs done a few days ago reviewed and discussed with patient - advised that his total and LDL cholesterol levels are still elevated but have improved somewhat from previous Patient could not tolerate Rosuvastatin due to side effects (headaches and myalgia) but finds that taking it at 5 mg every other day does not cause him as much problems and he has been doing that lately Reinforced low cholesterol diet - he still admits to eating eggs everyday and will try to cut back on this Will recheck his labs and fasting lipids in 6 months for follow up (2) Diabetes mellitus: Code(s): E11.9 - Type 2 diabetes mellitus without complications Qualifiers: Diabetes mellitus type: type 2 Diabetes mellitus nursing home insulin use: without nursing home use Diabetes mellitus complication status: without complication Qualified Code(s): E11.9 - Type 2 diabetes mellitus without complications Plan: HgbA1c was at 5.9% on his labs done a few days ago (was previously at 5.7% back in June 2023) - goal is HgbA1c of < 7.0% but should be <5.8% if he does not wish to take any Rx for his blood sugar Reinforced diabetic diet Patient stopped taking his Metformin ER 500 mg QD back in January 2023 after getting the okay from us to try stopping it and it looks like his glycemic control has been under control Advised that if he can continue to keep his HgbA1c at 5.8% or less, then he does not need any Rx and can continue on diet modification alone (3) Vitamin D deficiency: Code(s): E55.9 - Vitamin D deficiency, unspecified Plan: Will start him back on Vitamin D3 2000 units QD as his Vitamin D level is again low on his recent labs (4) Cervical disc disease: Code(s): M50.90 - Cervical disc disorder, unspecified, unspecified cervical region Plan: Cervical spine x-rays done back in 2020 revealed (+) narrowing of the intervertebral disc spaces suggest underlying degenerative disc disease Patient states that his neck (pain) has not really bothered him at all lately so no intervention is needed at this time (5) Anxiety: Code(s): F41.9 - Anxiety disorder, unspecified Plan: He was started on Mirtazapine 7.5 mg Q HS last year year but he stopped taking this after a while and did not feel that he's had any problems since He has not had any significant bouts of anxiety for over a year now and does not feel that he needs anything else at this time - feels that his anxiety earlier last year was mostly due to his bout with meningitis then (6) Obesity (BMI 30-39.9): Code(s): E66.9 - Obesity, unspecified Plan: Reinforced diet/exercise as tolerated/ lose weight - he has been able to lose about 5 to 6 pounds since his last visit Plan To return in 6 months for his next annual physical examination Orders: Orders Complete Blood Count Auto Diff 6 Months D64.9 - Anemia, unspecified, Z00.00 - Encounter for general adult medical examination without abnormal findings Lipid Panel 6 Months E78.00 - Pure hypercholesterolemia, unspecified, Z00.00 - Encounter for general adult medical examination without abnormal findings TSH reflex Free T4 6 Months E78.00 - Pure hypercholesterolemia, unspecified, Z00.00 - Encounter for general adult medical examination without abnormal findings Vitamin D 25-OH Total 6 Months E55.9 - Vitamin D deficiency, unspecified, Z00.00 - Encounter for general adult medical examination without abnormal findings Comprehensive [place]. Panel Fast 6 Months E78.00 - Pure hypercholesterolemia, unspecified, Z00.00 - Encounter for general adult medical examination without abnormal findings UA CC w/rflx Micro + Cult 6 Months R30.0 - Dysuria, Z00.00 - Encounter for general adult medical examination without abnormal findings Hemoglobin A1c 6 Months E11.9 - Type 2 diabetes mellitus without complications Medications: Refilled cholecalciferol (vitamin D3) 50 mcg PO DAILY 90 days 90 caps 3RF E55.9 - Vitamin D deficiency, unspecified Coding Level of Care Code Est Pt Level 4 (63875) Diagnoses Pure hypercholesterolemia E78.00 Type 2 diabetes mellitus without complication, without long-term current use of insulin E11.9 Diabetes mellitus type: type 2 Diabetes mellitus nursing home insulin use: without nursing home use Diabetes mellitus complication status: without complication Vitamin D deficiency E55.9 Cervical disc disease M50.90 Anxiety F41.9 Obesity (BMI 30-39.9) E66.9
== END 2023-12-30 17:27 | disposition home or self-care (01) ==
PROVIDERS: PCP Internal Medicine; Visit Provider Internal Medicine
DX: E78.00 Pure hypercholesterolemia, unspecified (principal); E11.9 Type 2 diabetes mellitus without complications; E55.9 Vitamin D deficiency, unspecified; M50.90 Cervical disc disorder, unspecified, unspecified cervical region; F41.9 Anxiety disorder, unspecified
CPT/HCPCS: 99214

== ENCOUNTER 2024-07-05 08:59 | Outpatient (REF) | payer OTHER, SELFPAY ==
[2024-07-05 09:11] LABS: MANUAL DIFF FLAG NO
[2024-07-05 09:33] LABS: Basophils Percent Auto 0.1 % (0-2); Eosinophils Absolute Auto 0.1 X10*3/uL (0.0-0.4); Eosinophils Percent Auto 1.9 % (0-4); Hematocrit 42.3 % (42.0-52.0); Imm Gran Abs Auto 0.02 X10*3/uL (0.00-0.03); Imm Gran Pct Auto 0.3 % (0.0-0.4); Lymphocytes Absolute Auto 2.8 X10*3/uL (1.2-4.9); Lymphocytes Percent Auto 39.6 % (20-40); Mean Corpuscular HGB Conc 33.1 g/dl (31.0-36.0); Mean Corpuscular Hemoglobin 29.7 pg (27.0-33.0); Mean Corpuscular Volume 89.6 fL (80.0-98.0); Mean Platelet Volume 10.4 fL (9.4-12.4); Monocytes Absolute Auto 0.7 X10*3/uL (0.1-1.2); Monocytes Percent Auto 9.4 % (2-11); Neutrophils Absolute Auto 3.4 x10*3/uL (2.0-8.3); Neutrophils Percent Auto 48.7 % (45-73); Platelet Count 228 X10*3/uL (160-400); Red Blood Count 4.72 X10*6/uL (4.60-5.80); Red Cell Distribution Width 12.6 % (11.0-16.0)
[2024-07-05 09:40] LABS: Estimated Average Glucose 123 mg/dL; Hemoglobin A1C 148.5634 umol/L; Hemoglobin A1c % 5.9 % (<6.0)
[2024-07-05 09:43] LABS: Appearance Urine Clear; Color Urine Yellow; Glucose Urine UA Negative (Negative); Leukocyte Esterase Urine Negative (Negative); Nitrite Urine Negative (Negative); Specific Gravity - Urine 1.025 (1.005-1.025); Urine Blood Negative (Negative); Urine Ketones Trace mg/dL (Negative); Urine Protein Negative (Neg-Trace)
[2024-07-05 10:13] LABS: Alanine Aminotransferase 21 U/L (0-40); Albumin Level 3.9 g/dL (3.5-5.0); Alkaline Phosphatase 66 U/L (39-117); Anion Gap 9 (12-20); Aspartate Amino Transferase 19 U/L (5-37); Bilirubin Total 0.5 mg/dL (0.0-1.0); Blood Urea Nitrogen 19 mg/dL (9-16); Carbon Dioxide 28 mmol/L (22-29); Chloride 108 mmol/L (96-108); Cholesterol 214 mg/dL (<200); Estimated Glomerular Filt Rate > 60; Glucose Fasting 101 mg/dL (60-99); HDL Cholesterol 53 mg/dL (>40); LDL Cholesterol Calculated 144 mg/dL (<100); Potassium 4.7 mmol/L (3.3-5.1); Sodium 140 mmol/L (135-145); Total Protein 7.1 g/dL (6.5-8.0); Triglycerides 87 mg/dL (<150)
[2024-07-05 10:32] LABS: TSH reflex Free T4 1.73 uIU/mL (0.32-4.0); Vitamin D 25-OH Total 23.6 ng/mL (>30)
== END 2024-07-05 09:00 | disposition home or self-care (01) ==
LOC: HO.LAB 08:59
PROVIDERS: PCP Internal Medicine; Visit Provider Internal Medicine
DX: Z00.00 Encounter for general adult medical examination without abnormal findings (principal); E78.00 Pure hypercholesterolemia, unspecified; E55.9 Vitamin D deficiency, unspecified; E11.9 Type 2 diabetes mellitus without complications; R30.0 Dysuria; D64.9 Anemia, unspecified
CPT/HCPCS: 36415; 80053; 80061; 81003; 82306; 83036; 84443; 85025

== ENCOUNTER 2024-07-09 08:53 | Outpatient (AMB) | payer OTHER, SELFPAY ==
--- NOTE | 2024-07-09 08:56 | MHC.PC.OV ---
Vital Signs 07/09/24 08:57 Height 5 ft 10 in Weight 240 lb 6 oz BMI 34.5 BP 122/80 Blood Pressure Location Lt brachial Position Sitting Pulse 60 Pulse Source Pulse Oximeter Pulse Oximetry (%) 98 Oxygen Delivery Method Room Air Intake Visit Reasons: 4 MONTH Busser Required: No Accompanied by: Self / Same As Patient Allergies atorvastatin Adverse Reaction (Severe, Verified 07/09/24 09:21) Difficulty Breathing mirtazapine Adverse Reaction (Intermediate, Verified 07/09/24 09:21) bad dreams rosuvastatin Adverse Reaction (Intermediate, Verified 07/09/24 09:21) increased headaches Medication List - Last Reconciled 07/09/24 by Wilfredo Escobar MD cholecalciferol (vitamin D3) 50 mcg PO DAILY 90 days hydrocortisone 2.5% (Proctosol HC) 1 appl TX BID-QID PRN rosuvastatin 5 mg orally every other day - patient takes Rx this way by choice Tobacco use date assessed: 07/09/24 Dental Screening Dental Screen Date: 07/09/24 Did you have a dental visit in the last 12 months?: Yes Did you have a dental problem in the last 6 months where you did not have access to dental care?: No Was dental information given to patient?: Patient has dentist HPI 4 MONTH HPI Details Patient comes in today for his follow up visit for his hyperlipidemia, diabetes mellitus and Vitamin D deficiency States that he feels okay He denies any headaches or dizziness Denies any chest pains, no SOB No nausea/vomiting, no abdominal pain No change in bowel habits noted Needs his Rosuvastatin Rx refilled - he still takes it every other day by choice He had his follow up labs done a few days ago - to discuss his results He is also interested in trying one of the GLP-1s to help him lose weight if possible [facility] Medical History Cervical disc disease Vitamin D deficiency Viral meningitis Diabetes mellitus Obesity (BMI 30-39.9) Pure hypercholesterolemia Surgical History Hx of colonoscopy No pertinent past surgical history Family History Father Prediabetes Mother Schizophrenia Bipolar 1 disorder Maternal Grandfather Diabetes Daughter Epilepsy Maternal Grandmother Dementia Other Mental health problem Social History Housing: Apartment Alcohol intake: never Patient Tobacco Use Status: Never used Tobacco e-Cigarette/Vaping Use: Never Used Second Hand Smoke Exposure: Yes service: No Current occupational status: employed 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 1. Little interest or pleasure in doing things: not at all 2. Feeling down, depressed, or hopeless: not at all 3. Trouble falling or staying asleep, or sleeping too much: not at all 4. Feeling tired or having little energy: not at all 5. Poor appetite or overeating: not at all 6. Feeling bad about yourself - or that you are a failure or have let yourself or your family down: not at all 7. Trouble concentrating on things, such as reading the newspaper or watching television: not at all 8. Moving or speaking so slowly that other people could have noticed. Or the opposite - being so fidgety or restless that you have been moving around a lot more than usual: not at all 9. Thoughts that you would be better off or of hurting yourself in some way: not at all Total score: 0 Depression Screening Interpretation: Negative Depression Screening Done: Yes 66835 - PHQ-9 Billing: Yes Source: Developed by Drs. Thomas Lopez, Jami Enciso, Nahid Hicks and colleagues, with an educational carmen from [employer]. Thrive Questionnaire Date Thrive assessed: 07/09/24 I am a: Patient What is your living situation today?: I have a steady place to live Within the past 12 months, did the food you bought not last and you didn't have the money to get more?: Never true Within the past 12 months, did you worry whether your food would run out before you got money to buy more?: Never true Do you have trouble paying for medicines?: No Do you have trouble getting transportation to medical appointments?: No Do you have trouble paying your heating and electricity bill?: No Do you have trouble taking care of your child, family member or friend?: No Do you have trouble with day-to-day activities such as bathing, preparing meals, shopping, managing finances, etc.?: No Are you currently unemployed and looking for a job?: No Are you interested in more education?: No Please select the resources that you would like help with: None Currently or been in a relationship where the following occur: No concerns reported THRIVE Score: 0 AUDIT C Alcohol Use Questionnaire (AUDIT-C) 1. How often do you have a drink containing alcohol?: Monthly or less 2. How many drinks containing alcohol do you have on a typical day when you are drinking?: 1 or 2 3. How often do you have six or more drinks on one occasion?: Never Total Score: 1 Score Reviewed/Action Taken: Yes SEBASTIAN-7 AMB Questionnaire SEBASTIAN-7 Date SEBASTIAN - 7 assessed: 07/09/24 Feeling nervous, anxious, or on edge: 0 = Not at all Not being able to stop or control worryin = Not at all Worrying too much about different things: 0 = Not at all Trouble relaxin = Not at all Being so restless that it is hard to sit still: 0 = Not at all Becoming easily annoyed or irritable: 0 = Not at all Feeling afraid as if something awful might happen: 0 = Not at all Total SEBASTIAN-7 score (0-4 normal; 5-9 mild; 10-14 moderate; 15-21 severe): 0 Source: Developed by Drs. Thomas Lopez, Jami Enciso, Nahid Hicks and colleagues, with an educational carmen from [employer]. Review of Systems Const Denies chills, Denies fatigue, Denies fever(s) and Denies headache(s) ENT Denies dysphagia, Denies dizziness, Denies otalgia, Denies headache(s), Denies neck pain, Denies odynophagia and Denies sore throat Card Denies chest pain, Denies palpitations and Denies dyspnea Resp Denies chest congestion, Denies cough and Denies dyspnea GI Denies abdominal pain, Denies constipation, Denies dysphagia, Denies heartburn, Denies diarrhea, Denies nausea, Denies odynophagia and Denies vomiting Denies dysuria, Denies nocturia and Denies urinary frequency Musc Denies back pain, Denies arthralgias and Denies neck pain Skin/Breast Denies rash Neuro Denies dizziness and Denies headache(s) Endo Denies fatigue and Denies palpitations Physical exam (Primary Care) Vital Signs: Last Vital Signs Pulse 60 07/09/24 08:57 BP 122/80 07/09/24 08:57 Pulse Ox 98 07/09/24 08:57 Oxygen Delivery Method Room Air 07/09/24 08:57 BMI result Body Mass Index 34.5 Tobacco/Smoking Status: Tobacco use Status Tobacco use date assessed 07/09/24 07/09/24 09:05 Patient Tobacco Use Status Never used Tobacco 07/09/24 09:05 e-Cigarette/Vaping Use Never Used 07/09/24 09:05 PHQ-9: PHQ-9 Score PHQ-9: Total score 0 07/09/24 09:05 Depression Screening Interpretation: Negative Thrive Assessment: Date of Thrive Assessment Date Thrive assessed 07/09/24 07/09/24 09:05 Currently or been in a relationship where the following occur: No concerns reported Const General: no acute distress and alert HENMT Ears: TM's normal bilaterally and EAC's normal Throat: Yes posterior oropharynx normal and Yes tonsils normal (no TP congestion noted) Neck Neck: Yes supple and No lymphadenopathy Thyroid: Thyroid normal Resp Auscultation: clear to auscultation bilaterally, no rales and no wheezes Cardio Rate: regular rate Rhythm: regular rhythm Heart sounds: no murmurs GI Palpation (GI): Soft to palpation and nontender Auscultation: normal bowel sounds General: Yes no CVA tenderness Back/Spine/Pelvis Back: no CVA tenderness Thoracic/Lumbar Spine: No lumbar spinal tenderness Skin Rashes: no rashes Extrem General: Yes no clubbing, cyanosis or edema Results Reviewed Results Reviewed: Laboratory Tests 07/05/24 07/05/24 09:09 09:10 WBC 7.0 Hgb 14.0 Hct 42.3 Plt Count 228 Sodium 140 Potassium 4.7 Creatinine 0.88 Estimated GFR > 60 Fasting Glucose 101 H Hemoglobin A1c % 5.9 Calcium 9.0 D AST 19 ALT 21 Triglycerides 87 Cholesterol 214 H LDL Cholesterol, Calc 144 H HDL Cholesterol 53 25-OH Vitamin D Total 23.6 L TSH 1.73 Ur Specific [place] 1.025 Urine Protein Negative Urine Glucose (UA) Negative Urine Blood Negative Urine Nitrite Negative Ur Leukocyte Esterase Negative Coding Level of Care Code Est Pt Level 4 (49253) Complex EM visit Add On G2211 Diagnoses Pure hypercholesterolemia E78.00 Type 2 diabetes mellitus without complication, without long-term current use of insulin E11.9 Diabetes mellitus type: type 2 Diabetes mellitus moth exterminator insulin use: without moth exterminator use Diabetes mellitus complication status: without complication Vitamin D deficiency E55.9 Cervical disc disease M50.90 Anxiety F41.9 Obesity (BMI 30-39.9) E66.9 Additional Codes PHQ-9 - 31779 - PHQ-9 Billing: Yes ([id number]) Assessment & Plan Assessment & Plan (1) Pure hypercholesterolemia: Code(s): E78.00 - Pure hypercholesterolemia, unspecified Category: Medical Plan: Results of his labs done a few days ago reviewed and discussed with patient - he is advised that his total and LDL cholesterol levels are still elevated and are mostly unchanged from previous Patient could not tolerate Rosuvastatin due to side effects (headaches and myalgia) but seems to be able to tolerate taking it at 5 mg every other day - Rx refilled Reinforced low cholesterol diet Will recheck his labs and fasting lipids in 6 months for follow up (2) Diabetes mellitus: Code(s): E11.9 - Type 2 diabetes mellitus without complications Category: Medical Qualifiers: Diabetes mellitus type: type 2 Diabetes mellitus moth exterminator insulin use: without senior care use Diabetes mellitus complication status: without complication Qualified Code(s): E11.9 - Type 2 diabetes mellitus without complications Plan: HgbA1c was still at 5.9% on his labs done a few days ago (was previously also at 5.9% back in December 2023) - goal is HgbA1c of at least < 7.0% but should ideally be <5.8% if he does not wish to take any Rx for his blood sugar Reinforced diabetic diet Patient stopped taking his Metformin ER 500 mg QD back in January 2023 as he recalls not feeling good whenever he took Metformin He would like to continue working on his diabetes with diet modification for now but would like to see if he can try some of the GLP-1s to help him lose weight Have advised him that as the GLP-1s were originally indicated for diabetes, then if he is able to go on the medication, this should also help with his diabetes but the main dariela here would be if his insurance will agree to cover the medication Will try sending in Rx for Ozempic 0.25 mg SQ once a week to see if his insurance will cover the Rx (3) Vitamin D deficiency: Code(s): E55.9 - Vitamin D deficiency, unspecified Category: Medical Plan: He is advised that his Vitamin D level is still low on his recent labs Continue Vitamin D3 2000 units QD (4) Cervical disc disease: Code(s): M50.90 - Cervical disc disorder, unspecified, unspecified cervical region Category: Medical Plan: Cervical spine x-rays done back in 2019 revealed (+) narrowing of the intervertebral disc spaces suggest underlying degenerative disc disease Patient states that his neck (pain) has not really bothered him at all lately so no intervention is needed at this time (5) Anxiety: Code(s): F41.9 - Anxiety disorder, unspecified Category: Medical Plan: He was started on Mirtazapine 7.5 mg Q HS a couple of years ago but he stopped taking this after a while and did not feel that he's had any problems since He has not had any significant bouts of anxiety for a couple of years now and does not feel that he needs anything else at this time - feels that his anxiety a couple of years ago was mostly due to his bout with meningitis then (6) Obesity (BMI 30-39.9): Code(s): E66.9 - Obesity, unspecified Category: Medical Plan: Reinforced diet/exercise as tolerated/lose weight He will be started on Ozempic 0.25 mg SQ once a week if his insurance will cover the Rx - have advised patient that this may also help him lose weight if he can get on the medication Plan To return in 6 months for his next annual physical examination Orders: Orders Complete Blood Count Auto Diff 6 Months D64.9 - Anemia, unspecified, Z00.00 - Encounter for general adult medical examination without abnormal findings TSH reflex Free T4 6 Months E78.00 - Pure hypercholesterolemia, unspecified, Z00.00 - Encounter for general adult medical examination without abnormal findings UA CC w/rflx Micro + Cult 6 Months R30.0 - Dysuria, Z00.00 - Encounter for general adult medical examination without abnormal findings Microalbumin, Random (w Creat) 6 Months E11.9 - Type 2 diabetes mellitus without complications, Z00.00 - Encounter for general adult medical examination without abnormal findings Hemoglobin A1c 6 Months E11.9 - Type 2 diabetes mellitus without complications, Z00.00 - Encounter for general adult medical examination without abnormal findings Comprehensive [place]. Panel Fast 6 Months E78.00 - Pure hypercholesterolemia, unspecified, Z00.00 - Encounter for general adult medical examination without abnormal findings Lipid Panel 6 Months E78.00 - Pure hypercholesterolemia, unspecified, Z00.00 - Encounter for general adult medical examination without abnormal findings Vitamin D 25-OH Total 6 Months E55.9 - Vitamin D deficiency, unspecified, Z00.00 - Encounter for general adult medical examination without abnormal findings Prostate Specific Antigen Scr 6 Months Z00.00 - Encounter for general adult medical examination without abnormal findings Medications: New rosuvastatin 5 mg orally every other day - patient takes Rx this way by choice 30 tabs 3RF Ozempic (semaglutide) for 4 weeks 0.25 mg (0.368 mL) subcut QWEEK 4 weeks 3 mL 0RF NS
[2024-07-09 08:57] VITALS: BP 122/80; PULSE 60; O2SAT 98; BMI 34.5
== END 2024-07-09 09:39 | disposition home or self-care (01) ==
LOC: HO.HMCH 08:54
PROVIDERS: PCP Internal Medicine; Visit Provider Internal Medicine
DX: E78.00 Pure hypercholesterolemia, unspecified (principal); E11.9 Type 2 diabetes mellitus without complications; E66.9 Obesity, unspecified; Z68.34 Body mass index [BMI] 34.0-34.9, adult; E55.9 Vitamin D deficiency, unspecified; M50.90 Cervical disc disorder, unspecified, unspecified cervical region; F41.9 Anxiety disorder, unspecified

== ENCOUNTER → 2024-07-09 08:53 | Outpatient (BNVA) | payer OTHER, SELFPAY | PROVIDERS: PCP Internal Medicine; Visit Provider Internal Medicine | DX: E78.00 Pure hypercholesterolemia, unspecified (principal); E11.9 Type 2 diabetes mellitus without complications; E55.9 Vitamin D deficiency, unspecified; M50.90 Cervical disc disorder, unspecified, unspecified cervical region; F41.9 Anxiety disorder, unspecified; E66.9 Obesity, unspecified | CPT/HCPCS: 96127; 99212 ==

== ENCOUNTER 2025-03-31 10:43 | Emergency (ER) | payer OTHER, SELFPAY ==
--- NOTE | ~2025-03-31 | US_ITS ---
CLINICAL HISTORY: RUQ pain ? hepatitis gallbladder US limited to right upper quadrant Comparison: Same-day CT abdomen and pelvis Findings: Liver is normal size and reveals homogeneous echotexture. No focal hepatic lesions. No intrahepatic ductal dilatation. Right lobe length measures 14.3 cm. Portal vein reveals hepatopetal flow. Common bile duct measures 2 mm. Gallbladder appears unremarkable. No sonographic Leach's sign. Impression: Unremarkable right upper quadrant ultrasound. This document has been electronically signed by: John Zhang MD on 03/31/2025 15:29:55
--- NOTE | ~2025-03-31 | CT_ITS ---
CLINICAL HISTORY: diffuse abd pain worse after eating Exam: Contrast-enhanced CT abdomen and pelvis with multiplanar reformats. Comparison: None. Findings: CT abdomen: Lung bases appear clear. Liver is free of focal lesions and ductal dilatation. Gallbladder is unremarkable. Spleen is unremarkable. Pancreas and adrenal glands appear unremarkable. Kidneys appear unremarkable. No free intraperitoneal fluid or retroperitoneal masses or adenopathy. Abdominal aorta is normal caliber. Bowel loops reveal no abnormal wall thickening or distention. No significant diverticular disease. The appendix is unremarkable. CT pelvis: Prostate gland measures 4.5 cm transverse dimension. Urinary bladder is free of gross filling defects. No pelvic masses, fluid or adenopathy. Osseous structures reveal no destructive osseous lesions. Impression: 1. No acute abnormality or CT explanation for reported history of diffuse abdominal pain, worse after eating. This document has been electronically signed by: John Zhang MD on 03/31/2025 14:41:10
[2025-03-31 10:52] VITALS: BP 159/78; PULSE 68; RESP 18; TEMP 36.8; O2SAT 99; BMI 33.0
[2025-03-31 11:22] LABS: MANUAL DIFF FLAG NO
[2025-03-31 11:38] LABS: Alanine Aminotransferase 23 U/L (0-40); Albumin Level 4.7 g/dL (3.5-5.0); Alkaline Phosphatase 82 U/L (39-117); Anion Gap 12 (12-20); Aspartate Amino Transferase 21 U/L (5-37); Blood Urea Nitrogen 11 mg/dL (9-16); Calcium 9.6 mg/dL (8.4-10.2); Carbon Dioxide 28 mmol/L (22-29); Chloride 104 mmol/L (96-108); Creatinine Clr Calc Pharmacy 109.8; Estimated Glomerular Filt Rate > 60; Lipase 17 U/L (8-78); Potassium 4.3 mmol/L (3.3-5.1); Sodium 140 mmol/L (135-145); Total Protein 7.6 g/dL (6.5-8.0)
[2025-03-31 11:47] LABS: Hematocrit 45.2 % (42.0-52.0); Hemoglobin 15.2 g/dl (14.0-18.0); Imm Gran Abs Auto 0.03 X10*3/uL (0.00-0.03); Imm Gran Pct Auto 0.4 % (0.0-0.4); Lymphocytes Absolute Auto 2.0 X10*3/uL (1.2-4.9); Mean Corpuscular HGB Conc 33.6 g/dl (31.0-36.0); Mean Corpuscular Hemoglobin 29.9 pg (27.0-33.0); Mean Corpuscular Volume 89.0 fL (80.0-98.0); NRBC Abs Auto 0.000 X10*3/uL (0.0-0.012); NRBC Pct Auto 0.0 /100WBC (0.0-0.2); Platelet Count 248 X10*3/uL (160-400); Red Blood Count 5.08 X10*6/uL (4.60-5.80); White Blood Count 8.1 X10*3/uL (4.8-10.8)
--- NOTE | 2025-03-31 12:03 | ED_ITS ---
HPI - Abdominal Pain General Chief Complaint: Abdominal Pain Stated Complaint: sent from urgent care for cat scan Time Seen by Provider: 03/31/25 11:42 Source: patient Mode of arrival: ambulatory Limitations: no limitations History of Present Illness ED Provider: YVONNE Elizabeth HPI narrative: Chief Complaint: ?Diffuse abdominal pressure and stabbing pain since March 22.? History of Present Illness: Janis is a 50-year-old malewho reports the sudden onset of diffuse abdominal pressure and stabbing pain that began on 22 March. The pain involves nearly her entire abdomen. Symptoms are provoked by drinking liquids or eating solids; she feels ?weird? discomfort as food passes?particularly when it seems to reach the sigmoid region. He denies nausea, vomiting, active reflux, bloating, or diarrhea. Pain is absent with steady pressure but increases with rebound (?if you suddenly let go, that?s when it hurts?). He also notes a sensation of pressure when she urinates. He reports no fever; a rapid COVID test performed this morning was negative. Past abdominal history includes acute appendicitis ?6 years ago, initially treated with antibiotics and subsequently removed (appendectomy). He states today?s pain feels different from that episode. He underwent a prior colonoscopy (date unknown) that was normal except for a finding at the sigmoid, details unclear. No history of diverticulitis; however, his mother does have diverticulitis. Related Data Previous Rx's ?Medication ?Instructions ?Recorded hydrocortisone 2.5 % topical cream 1 appl NV BID-QID P RN hemorrhoids 12/22/22 with perineal applicator #30 grams (Proctosol HC) Ozempic 0.25 mg or 0.5 mg (2 mg/3 0.25 mg (0.368 mL) s ubcut QWEEK 4 07/09/24 mL) subcutaneous pen injector weeks #3 mL (semaglutide) cholecalciferol (vitamin D3) 50 50 mcg PO DAILY 90 day s #90 caps 12/30/24 mcg (2,000 unit) capsule rosuvastatin 5 mg tablet 5 mg PO Q OTHER DAY #45 tabs 12/30/24 Allergies Allergy/AdvReac Type Severity Reaction Status Date / Time atorvastatin AdvReac Severe Difficulty Verified 03/31/25 10:53 Breathing mirtazapine AdvReac Intermediate bad dreams Verified 03/31/25 10:53 rosuvastatin AdvReac Intermediate increased Verified 03/31/25 10:53 headaches Review of Systems Review of Systems Yes all other systems are reviewed and are negative [facility] Past Medical History Attestation statement: The following information was validated with the patient. Source: old records reviewed and nursing notes reviewed Medical History Cervical disc disease Vitamin D deficiency Viral meningitis Diabetes mellitus Obesity (BMI 30-39.9) Pure hypercholesterolemia Surgical History Hx of colonoscopy No pertinent past surgical history Family History Family History Father Prediabetes Mother Schizophrenia Bipolar 1 disorder Maternal Grandfather Diabetes Daughter Epilepsy Maternal Grandmother Dementia Other Mental health problem Social History Social History Housing: Apartment Alcohol intake: never Patient Tobacco Use Status: Never used Tobacco Smoked in Last 30 Days: No e-Cigarette/Vaping Use: Never Used Second Hand Smoke Exposure: Yes Use of substances other than those prescribed or required for medical reasons: No Advance Directives: No Advance Directives Information Provided: Yes service: No Current occupational status: employed 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 Oriented X3.? No acute distress.? Head: Normocephalic, atraumatic, no step-offs or deformities Eyes: Pupils equal, round and reactive to light.? Neck: Normal inspection.? Neck supple.? CVS: Normal heart rate and rhythm.? Pulses normal.? Respiratory: No respiratory distress.? Breath sounds normal.? Abdomen: Soft and nontender.? Skin: Skin warm and dry.? Normal skin color.? Normal skin turgor.? Extremities: No lower extremity edema.? No calf ttp. 5/5 strength to bilateral upper and lower extremities Back: No midline tenderness, no C-spine tenderness, full range of motion, no CVA tenderness bilaterally Neuro: Oriented X 3.? No motor deficit.? No sensory deficit. CN 2-12 intact Vital Signs: Vital Signs - 24 hr 12/14/25 10:52 03/31/25 13:45 Temperature 98.2 F 97 F Pulse Rate 68 61 Respiratory Rate 18 16 Blood Pressure 159/78 H 146/80 H Pulse Oximetry 99 98 Oxygen Delivery Method Room Air Room Air BMI result Body Mass Index 33.0 vss Course Reevaluation(s) Reevaluation #1: CBC unremarkable. Chemistry with no acute findings eating intervention. Lipase normal. UA without infection. Flu, COVID, RSV negative. CT abdomen pelvis no acute abnormality of CT explaining patient has diffuse abdominal pain worse after eating. Abdominal ultrasound unremarkable. Educated patient on diagnosis and treatment plan, answered all question, patient verbalizes understanding. At this time patient will be discharged home, advised to return with new or worsening symptoms. Educated on worrisome signs and symptoms and when to return. At this time I feel comfortable discharge home. Time: 16:10 Medical Decision Making Medical Decision Making MDM Narrative: 50year-old male with diffuse abdominal pain characterized by rebound tenderness but minimal tenderness to steady palpation, provoked by oral intake. Differential includes intra-abdominal inflammatory processes such as early appendiceal stump inflammation, diverticulitis, colitis, or renal/ureteric colic; bedside ultrasound today did not reveal renal calculi. Further imaging warranted. Problem #1: Diffuse abdominal pain Assessment: Ongoing abdominal pressure and stabbing discomfort since 03/22, rebound tenderness present, no constitutional symptoms, limited POC ultrasound without stones. Needs definitive imaging. Plan: * Order CT abdomen/pelvis with contrast today for comprehensive evaluation. * Send standard ED labs (CBC, CMP, lipase, urinalysis) ? samples already being drawn. * Reassess following imaging and laboratory results. Differential Diagnosis Differential Diagnoses: The differential diagnosis associated with the presentation includes * Appendiceal stump inflammation * Diverticulitis * Colitis (infectious or inflammatory) * Renal/ureteric colic * Other causes of acute abdomen (e.g., bowel obstruction, mesenteric ischemia, gynecologic pathology as applicable) Admission/Observation Consideration of admission/observation: Escalation of care including admission/observation considered Lab Data 03/31/25 11:17 03/31/25 11:17 Labs: Lab Results 03/31/25 03/31/25 03/31/25 Range/Units 11:17 12:19 13:46 WBC 8.1 (4.8-10.8) X10*3/uL RBC 5.08 (4.60-5.80) X10*6/uL Hgb 15.2 (14.0-18.0) g/dl Hct 45.2 (42.0-52.0) % MCV 89.0 (80.0-98.0) fL MCH 29.9 (27.0-33.0) pg MCHC 33.6 (31.0-36.0) g/dl RDW 12.3 (11.0-16.0) % Plt Count 248 (160-400) X10*3/uL MPV 10.4 (9.4-12.4) fL Immature Gran % (Auto) 0.4 (0.0-0.4) % Neut % (Auto) 66.3 (45-73) % Lymph % (Auto) 24.8 (20-40) % Powell % (Auto) 7.4 (2-11) % Eos % (Auto) 1.0 (0-4) % Baso % (Auto) 0.1 (0-2) % Lymph # (Auto) 2.0 (1.2-4.9) X10*3/uL Powell # (Auto) 0.6 (0.1-1.2) X10*3/uL Eos # (Auto) 0.1 (0.0-0.4) X10*3/uL Baso # (Auto) 0.0 (0.0-0.2) X10*3/uL Abs Immat Gran (auto) 0.03 (0.00-0.03) X10*3/uL Absolute Neuts (auto) 5.4 (2.0-8.3) x10*3/uL Absolute Nucleated RBC 0.000 (0.0-0.012) X10*3/uL Nucleated RBC % (auto) 0.0 (0.0-0.2) /100WBC Sodium 140 (135-145) mmol/L Potassium 4.3 (3.3-5.1) mmol/L Chloride 104 (96-108) mmol/L Carbon Dioxide 28 (22-29) mmol/L Anion Gap 12 (12-20) BUN 11 (9-16) mg/dL Creatinine 0.98 (0.5-1.4) mg/dL Estim Creat Clear Calc 109.8 Estimated GFR > 60 Random Glucose 107 (60-115) mg/dL Calcium 9.6 D (8.4-10.2) mg/dL Total Bilirubin 0.7 (0.0-1.0) mg/dL Direct Bilirubin 0.2 (0.0-0.5) mg/dL AST 21 (5-37) U/L ALT 23 (0-40) U/L Alkaline Phosphatase 82 (39-117) U/L Total Protein 7.6 (6.5-8.0) g/dL Albumin 4.7 (3.5-5.0) g/dL Lipase 17 (8-78) U/L Urine Color Yellow Urine Appearance Hazy Urine pH 8.0 (5.0-9.0) Ur Specific [place] 1.010 (1.005-1.025) Urine Protein Negative (Neg-Trace) mg/dL Urine Glucose (UA) Negative (Negative) mg/dL Urine Ketones Negative (Negative) mg/dL Urine Blood Negative (Negative) Urine Nitrite Negative (Negative) Ur Leukocyte Esterase Negative (Negative) Urine RBC 0-2 (0-2) /HPF Urine WBC 0-5 (0-5) /HPF Ur Squamous Epith Cells 0-2 (0-2) /HPF Urine Bacteria None Seen (None Seen) Hyaline Casts 0-2 (0-2) /LPF Influenza Type A (PCR) NEGATIVE (Negative) Influenza Type B (PCR) NEGATIVE (Negative) RSV RNA Qual (PCR) NEGATIVE (Negative) SARS-CoV-2 RNA (RT-PCR) NEGATIVE (Negative) Medications Administered Discontinued Medications Generic Name Dose Route Start Last Admin Trade Name Augieq PRN Reason Stop Dose Admin Iohexol 100 ml 03/31/25 14:10 03/31/25 14:11 Iohexol 350 Mg/Ml 100 Ml Infus..Btl IV 03/31/25 14:11 85 ml ONCE ONE Administration Ketorolac Tromethamine 30 mg 03/31/25 14:38 03/31/25 14:56 Ketorolac Tromethamine 15 Mg/Ml Vial IVPUSH 03/31/25 14:39 30 mg ONCE ONE Administration Discharge Plan Discharge Clinical Impression: Abdominal pain Patient Disposition: Home, Self-Care Instructions: Abdominal Pain (ED) Additional Instructions: Take your medications as prescribed. If you were prescribed antibiotics today, it is important that you take your medication to their entirety, do not skip any doses, do not finish them early. Follow-up with your primary care provider this week. Return to the emergency department with new or worsening symptoms. Such as fevers, chills, chest pain, shortness of breath, nausea, vomiting, dizziness, headache, vision changes, lethargy In case of emergency call 911 Your laboratory studies and imaging in the emergency department were reassuring. Please follow-up with GI if you continue to have issues. Impression: Unremarkable right upper quadrant ultrasound. Prescriptions: No Action rosuvastatin 5 mg tablet 5 mg PO Q OTHER DAY Qty: 45 2RF cholecalciferol (vitamin D3) 50 mcg (2,000 unit) capsule 50 mcg PO DAILY 90 Days Qty: 90 3RF hydrocortisone [Proctosol HC] 2.5 % cream with perineal applicator 1 appl NV BID-QID PRN (Reason: hemorrhoids) Qty: 30 2RF Ozempic 0.25 mg or 0.5 mg (2 mg/3 mL) pen injector 0.25 mg subcut QWEEK 28 Days Qty: 3 0RF Rx Instructions: for 4 weeks Referrals: [facility] [Provider Group, Gastroenterology] - 1 week Wilfredo Escobar MD [Primary Care Provider, Internal Medicine] - 1 week Print Language: Frisian
--- OUTSIDE RECORDS SUMMARY | 2025-03-31 12:52 | XMS_ITS | Clinical Summary ---
Author Organization [employer] [facility] Address [address] [place] [address] Care Team Providers Care Splicing Supervisor Name Role Phone Unavailable Primary Care Provider Unavailabl e Allergies Active Allergy Reactions Criticality Noted Date Comments Atorvastatin 11/07/2023 Medications rosuvastatin (Crestor) 5 MG tablet Take 5 mg by mouth Once per day. Active cholecalciferol VITAMIN D (Vitamin D-3) 50 MCG (1999) capsule 12/30/2023 Active amoxicillin-clav ulanate (Augmentin) 875-125 MG tablet Take 1 tablet by mouth 2 times daily. 20 tablet 01/03/2024 Active Social History Tobacco Use Types Packs/Day Years Used Date Smoking Tobacco: Never Smokeless Tobacco: Never Tobacco Cessation:Counseling Given: Not Answered Sex and Gender Information Value Date Recorded Sex Assigned at Male 11/01/2023 2:01 PM EDT Legal Sex Male 1:58 PM EDT Gender Identity Male 11/01/2023 2:01 PM EDT Sexual Orientation Choose not to disclose 2023 2:01 PM EDT Last Filed Vital Signs Vital Sign Reading Time Taken Comments Blood Pressure 110/70 01/03/2024 10:19 AM EDT Pulse 66 11/07/2023 4:13 PM EDT Temperature - - Respiratory Rate - - Oxygen Saturation - - Inhaled Oxygen Concentration - - Weight - - Height - - Body Mass Index - - Plan of Treatment Health Maintenance Due Date Last Done Comments CT Colonography 1973 Colonoscopy 1973 Colorectal Cancer Screening 1973 Depression Screening 1973 FIT DNA/Cologuard 1973 FIT 1973 FOBT 1973 HIV Screening 1973 Lipid Panel 1973 SDOH Screening 1973 Sigmoidoscopy 1973 Disability Screening 1973 Alcohol/Substance Use Screening 1985 Family Planning (PISQ) 02/04/1988 Hepatitis C Screening 1991 DTaP/Tdap/Td Vaccines (1 - Tdap) 02/04/1992 Hepatitis B Vaccines (1 of 3 - 19+ 3-dose series) 02/04/1992 Pneumococcal Vaccine: 50+ Ye ars (1 of 1 - PCV) 2023 Zoster Vaccines (1 of 2) 2023 Dental Oral Exam 05/10/2024 11/07/2023 Dental Prophylaxis 05/10/2024 11/07/2023 Dental X-Ray: Bitewings 11/07/2024 11/07/2023 COVID-19 Vaccine (2 - 2024-2 6 season) 2024 07/04/2020 Influenza Vaccine (#1) 2024 Tobacco Screening 01/02/2025 01/03/2024 Dental X-Ray: Full Mouth 11/07/2026 11/07/2023 RSV Patients and Pa tients Aged 60 years or older (1 - 1-dose 75+ series) 02/04/2048 HIB Vaccines Aged Out No longer eligi ble based on patient's age to complete this topic HPV Vaccines Aged Out No longer eligi ble based on patient's age to complete this topic Hepatitis A Vaccines Aged Out No long er eligible based on patient's age to complete this topic IPV Vaccines Aged Out No longer eligi ble based on patient's age to complete this topic Meningococcal B Vaccine Aged Out No l onger eligible based on patient's age to complete this topic Meningococcal Vaccine Aged Out No panchito stephan eligible based on patient's age to complete this topic RSV under 20 months Aged Out No longe r eligible based on patient's age to complete this topic Rotavirus Vaccines Aged Out No longer eligible based on patient's age to complete this topic Procedures Procedure Name Priority Date/Time Associated Diagnosis Comments PROPHYLAXIS - ADULT Routine 11/07/2023 4 :00 PM EDT INTRAORAL - COMPLETE SERIES OF RADIOGRAPHIC IMAGES Routine 11/07/2023 4:00 PM EDT COMPREHENSIVE ORAL EVALUATION - NEW OR ESTABLISHED PATIENT Routine 11/07/2023 4:00 PM EDT from Last 3 Months or Most Recently Relevant to Health Maintenance Insurance [facility] MEDICAID STAND ADULT DENTAL - [facility] PARTIAL (MEDICAID)
[2025-03-31 13:02] LABS: Resp Syncy Virus RNA Qual PCR NEGATIVE (Negative); SARS COV2 PCR INHOUSE NEGATIVE (Negative)
[2025-03-31 13:45] VITALS: BP 146/80; PULSE 61; RESP 16; TEMP 36.1; O2SAT 98
[2025-03-31] MEDS: iohexoL 350 MG/ML 100 ML INFUS..BTL IV (14:11)
[2025-03-31 14:14] LABS: Appearance Urine Hazy; Glucose Urine UA Negative (Negative); PH 8.0 (5.0-9.0); Specific Gravity - Urine 1.010 (1.005-1.025)
[2025-03-31 16:21] VITALS: BP 140/88; PULSE 60; RESP 14; TEMP 36.1; O2SAT 98
== END 2025-03-31 16:22 | disposition home or self-care (01) ==
PROVIDERS: Physician Assistant; Emergency Provider Emergency Medicine; PCP Internal Medicine
DX: R10.9 Unspecified abdominal pain (principal); Z03.818 Encounter for observation for suspected exposure to other biological agents ruled out; E11.9 Type 2 diabetes mellitus without complications; E78.00 Pure hypercholesterolemia, unspecified; Z79.02 Long term (current) use of antithrombotics/antiplatelets; Z79.899 Other long term (current) drug therapy
CPT/HCPCS: 36415; 74177; 76705; 80053; 81001; 82248; 83690; 85025; 87637; 96374; 99285; J1885; Q9967

== ENCOUNTER → 2025-03-31 12:26 | Outpatient (BNV) | payer OTHER, SELFPAY | PROVIDERS: Emergency Provider Emergency Medicine; PCP Internal Medicine; Visit Provider Radiology Diagnostic Radiology | DX: R10.84 Generalized abdominal pain (principal); R10.11 Right upper quadrant pain | CPT/HCPCS: 74177; 76705 ==

== ENCOUNTER 2025-04-05 07:58 | Outpatient (AMB) | payer OTHER, SELFPAY ==
--- OUTSIDE RECORDS SUMMARY | 2025-04-05 08:00 | XMS_ITS | Clinical Summary ---
Author Organization [employer] [facility] Address [address] [place] [address] Care Team Providers Care Safety Equipment Testing Specialist Name Role Phone Unavailable Primary Care Provider [...] Most Recently Relevant to Health Maintenance Insurance [facility] MEDICAID STAND ADULT DENTAL - [place] PARTIAL (MEDICAID)
--- NOTE | 2025-04-05 08:09 | A.OFFVIS_ITS ---
Vital Signs 04/05/25 08:11 Height 5 ft 11 in Weight 233 lb 11.04 oz BMI 32.6 BP 103/66 Blood Pressure Location Lt brachial Position Sitting Pulse 58 Intake Visit Reasons: 30 MIN. MICHAEL 2022. ED FUV - Abd pain. Intake Note: Tigre presents in the office as a follow up. CC: States that he went to the ED tuesday and this is a follow up - he states he had a lower abdomen pains on the lower left and states that he is not sure if it was a prostate or rectal pain. He suspects it is the intestines - he took antibiotics when it wasnt prescribed and he thinks it might have messed with him. 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 MICHAEL 2022. ED FUV - Abd pain.: Details: LAST VISIT: Status post colonoscopy Patient denies any ill effects from the prep, anesthesia or procedure itself. One lesion seen in rectum, 12 mm. Recommendation was made for patient to return in 3 years. No malignancy found on biopsy. Patient will return in our office on as needed basis. He is agreeable to this plan and verbalizes understanding of instructions. He was given the opportunity to ask questions and all questions answered. ? Thank you for allowing me to participate in his care Plan New hydrocortisone 2.5% (Proctosol HC) [address] BID-QID PRN 30 grams 2RF hemorrhoids K64.9 - Unspecified hemorrhoids ED VISIT 03/31/2025 DM Narrative: 50year-old male with diffuse abdominal pain characterized by rebound tenderness but minimal tenderness to steady palpation, provoked by oral intake. Differential includes intra-abdominal inflammatory processes such as early appendiceal stump inflammation, diverticulitis, colitis, or renal/ureteric colic; bedside ultrasound today did not reveal renal calculi. Further imaging warranted. Problem #1: Diffuse abdominal pain Assessment: Ongoing abdominal pressure and stabbing discomfort since 03/22, rebound tenderness present, no constitutional symptoms, limited POC ultrasound without stones. Needs definitive imaging. Plan: * Order CT abdomen/pelvis with contrast today for comprehensive evaluation. * Send standard ED labs (CBC, CMP, lipase, urinalysis) ? samples already being drawn. * Reassess following imaging and laboratory results.Differential Diagnosis Differential Diagnoses: The differential diagnosis associated with the presenta tion includes * Appendiceal stump inflammation * Diverticulitis * Colitis (infectious or inflammatory) * Renal/ureteric colic * Other causes of acute abdomen (e.g., bowel obstruction, mesenteric ischemia, gynecologic pathology as applicable)Admission/Observation Consideration of admission/observation: Escalation of care including admission/observation considered TODAY'S VISIT Patient is here today for request visit. Last seen after his colonoscopy in 2022. However patient was seen it in the ED past Tuesday for left lower quadrant pain. Patient tolerated he had diverticulitis. Evaluated in the ED with normal CT scan, no leukocytosis. Patient reports that his symptoms are better now, however he reports occasional left lower quadrant pain. Patient reports the pain feels like stabbing and sharp at times. Patient feels like he has a lot of gas. Urgency like he has to have a bowel movement, however frequently when he sits down he is unable to go. Sometimes has to try few times before actually emptying. Patient reports that he does not have a urge to push. Patient denies any melena, hematochezia, unintentional weight loss or ribbon like stools. He will be due to go for colonoscopy next year in December. Patient reports that he has been trying to eat healthier. Patient stopped eating heavy food. Patient reports that he is drinking plenty fluids. [facility] Medical History Cervical disc disease Vitamin D deficiency Viral meningitis Diabetes mellitus Obesity (BMI 30-39.9) Pure hypercholesterolemia Surgical History Hx of colonoscopy No pertinent past surgical history Family History Father Prediabetes Mother Schizophrenia Bipolar 1 disorder Maternal Grandfather Diabetes Daughter Epilepsy Maternal Grandmother Dementia Other Mental health problem Social History Housing: Apartment Alcohol intake: never Patient Tobacco Use Status: Never used Tobacco e-Cigarette/Vaping Use: Never Used Second Hand Smoke Exposure: Yes service: No Current occupational status: employed 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 Current occupational exposures/hazards: No Cognitive needs: No Hearing needs: No Vision needs: No Review of Systems Const Denies weight gain and Denies weight loss ENT Reports no additional complaints, Denies dysphagia and Denies odynophagia Card Reports no additional complaints Resp Reports no additional complaints GI Reports abdominal pain (LLQ), Denies belching, Denies melena, Reports bloating, Denies change in bowel habits, Denies dysphagia, Denies excessive flatus, Denies dyspepsia, Denies heartburn, Denies diarrhea, Denies loose stools, Denies nausea, Denies odynophagia and Denies vomiting Reports no additional complaints Musc Reports no additional complaints Neuro Reports no additional complaints Psych Reports no additional complaints Endo Reports no additional complaints Physical Exam Const General: healthy appearing, no acute distress and well developed Nutritional Appearance: obese Orientation/consciousness: patient oriented x3 HEENT Head: Yes normal to inspection, Yes normocephalic and Yes atraumatic Face and sinus: Yes normal facial exam Mouth: Normal oral and palatal mucosa present Throat: Yes posterior oropharynx normal, Yes tonsils normal and Yes uvula midline Eyes General: appearance normal, both eyes and all related structures Neck Neck: Yes normal visual inspection, Yes full ROM and Yes trachea midline Thyroid: Thyroid normal Resp Effort & Inspection: normal respiratory effort, able to speak in complete sentences, no tracheal deviation and symmetric chest movement Auscultation: clear to auscultation bilaterally Cardio Rate: regular rate Heart sounds: S1 normal heart sound present and S2 normal heart sound present GI Inspection: Yes normal to inspection, No distended and Yes obesity Palpation (GI): Soft to palpation, not firm, nontender and No hepatosplenomegaly present Auscultation: normal bowel sounds General: Yes no CVA tenderness Back/Spine/Pelvis Back: no CVA tenderness Skin General skin exam: elasticity normal, turgor normal and dry skin Neuro General: patient oriented x3 Psych Appearance: grossly normal Mental Status: mental status grossly normal Speech and movement: Normal speech and movement present Results Reviewed Results Reviewed: CT OF ABDOMEN AND PELVIS Findings: CT abdomen: Lung bases appear clear. Liver is free of focal lesions and ductal dilatation. Gallbladder is unremarkable. Spleen is unremarkable. Pancreas and adrenal glands appear unremarkable. Kidneys appear unremarkable. No free intraperitoneal fluid or retroperitoneal masses or adenopathy. Abdominal aorta is normal caliber. Bowel loops reveal no abnormal wall thickening or distention. No significant diverticular disease. The appendix is unremarkable. CT pelvis: Prostate gland measures 4.5 cm transverse dimension. Urinary bladder is free of gross filling defects. No pelvic masses, fluid or adenopathy. Osseous structures reveal no destructive osseous lesions. Impression: 1. No acute abnormality or CT explanation for reported history of diffuse abdominal pain, worse after eating. Laboratory Tests 03/31/25 11:17 WBC 8.1 Total Bilirubin 0.7 Direct Bilirubin 0.2 AST 21 ALT 23 Alkaline Phosphatase 82 Lipase 17 Assessment & Plan Assessment & Plan (1) Postprandial abdominal bloating: Code(s): R14.0 - Abdominal distension (gaseous) (2) Constipation: Code(s): K59.00 - Constipation, unspecified Qualifiers: Constipation type: slow transit constipation Qualified Code(s): K59.01 - Slow transit constipation (3) LLQ abdominal pain: Code(s): R10.32 - Left lower quadrant pain Plan Continue dietary changes crit increase fluid intake and activity to promote bowel motility. Patient to take senna. Patient will return in 4 months for re- evaluation. Patient will be sent for colonoscopy. He is due to go next year in December. Patient is agreeable to current plan of care and verbalizes understanding of instructions. He was given the opportunity to ask questions and all questions answered. Thank you for allowing me to participate in his care Medications: New sennosides (Natural Senna Laxative) 17.2 mg (2 x 8.6 mg) PO BEDTIME 60 tabs 1RF constipation K59.00 - Constipation, unspecified Coding Level of Care Code Est Pt Level 4 (21808) Diagnoses Postprandial abdominal bloating R14.0 Slow transit constipation K59.01 Constipation type: slow transit constipation LLQ abdominal pain R10.32 Time Spent (min) 40 Comment 25 minutes spent with patient and additional 15 minutes spent reviewing his records
[2025-04-05 08:11] VITALS: BP 103/66; PULSE 58; BMI 32.6
== END 2025-04-05 08:35 | disposition home or self-care (01) ==
LOC: HO.HGI 07:58
PROVIDERS: PCP Internal Medicine; Visit Provider Nurse Practitioner Family
DX: R14.0 Abdominal distension (gaseous) (principal); K59.01 Slow transit constipation; R10.32 Left lower quadrant pain
CPT/HCPCS: 99214

== ENCOUNTER → 2025-04-05 07:58 | Outpatient (BNVA) | payer OTHER, SELFPAY | PROVIDERS: PCP Internal Medicine; Visit Provider Nurse Practitioner Family | DX: K59.01 Slow transit constipation (principal); R14.0 Abdominal distension (gaseous); R10.32 Left lower quadrant pain | CPT/HCPCS: 99212 ==

== ENCOUNTER 2025-04-09 11:12 | Outpatient (REF) | payer OTHER, SELFPAY ==
[2025-04-09 11:27] LABS: MANUAL DIFF FLAG NO
[2025-04-09 11:51] LABS: Appearance Urine Clear; Glucose Urine UA Negative (Negative); PH 5.0 (5.0-9.0); Specific Gravity - Urine 1.020 (1.005-1.025)
[2025-04-09 11:55] LABS: Hematocrit 43.1 % (42.0-52.0); Hemoglobin 14.1 g/dl (14.0-18.0); Imm Gran Abs Auto 0.02 X10*3/uL (0.00-0.03); Imm Gran Pct Auto 0.3 % (0.0-0.4); Lymphocytes Absolute Auto 2.5 X10*3/uL (1.2-4.9); Mean Corpuscular HGB Conc 32.7 g/dl (31.0-36.0); Mean Corpuscular Hemoglobin 29.9 pg (27.0-33.0); Mean Corpuscular Volume 91.3 fL (80.0-98.0); NRBC Abs Auto 0.000 X10*3/uL (0.0-0.012); NRBC Pct Auto 0.0 /100WBC (0.0-0.2); Platelet Count 222 X10*3/uL (160-400); Red Blood Count 4.72 X10*6/uL (4.60-5.80); White Blood Count 7.7 X10*3/uL (4.8-10.8)
[2025-04-09 12:35] LABS: Alanine Aminotransferase 27 U/L (0-40); Albumin Level 4.3 g/dL (3.5-5.0); Alkaline Phosphatase 71 U/L (39-117); Anion Gap 9 (12-20); Aspartate Amino Transferase 21 U/L (5-37); Blood Urea Nitrogen 18 mg/dL (9-16); Calcium 9.6 mg/dL (8.4-10.2); Carbon Dioxide 29 mmol/L (22-29); Chloride 109 mmol/L (96-108); Cholesterol 211 mg/dL (<200); Estimated Glomerular Filt Rate > 60; HDL Cholesterol 57 mg/dL (>40); Potassium 4.9 mmol/L (3.3-5.1); Sodium 142 mmol/L (135-145); Total Protein 6.8 g/dL (6.5-8.0); Triglycerides 75 mg/dL (<150)
--- OUTSIDE RECORDS SUMMARY | 2025-04-09 12:37 | XMS_ITS | Clinical Summary ---
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
== END 2025-04-09 11:13 | disposition home or self-care (01) ==
LOC: HO.LAB 11:12
PROVIDERS: PCP Internal Medicine; Visit Provider Internal Medicine
DX: Z00.01 Encounter for general adult medical examination with abnormal findings (principal); D64.9 Anemia, unspecified; E78.00 Pure hypercholesterolemia, unspecified; E11.9 Type 2 diabetes mellitus without complications; E55.9 Vitamin D deficiency, unspecified; R30.0 Dysuria; I10 Essential (primary) hypertension; R14.0 Abdominal distension (gaseous); M25.511 Pain in right shoulder; M50.90 Cervical disc disorder, unspecified, unspecified cervical region; F41.9 Anxiety disorder, unspecified; E66.01 Morbid (severe) obesity due to excess calories; Z68.42 Body mass index [BMI] 45.0-49.9, adult; Z71.3 Dietary counseling and surveillance
CPT/HCPCS: 36415; 80053; 80061; 81003; 82043; 82306; 82570; 83036; 84153; 84443; 85025; 96127; 99396

== ENCOUNTER 2025-04-09 15:01 | Outpatient (AMB) | payer OTHER, SELFPAY ==
[2025-04-09 15:15] VITALS: BP 122/74; PULSE 67; O2SAT 94; BMI 45.7
--- NOTE | 2025-04-09 15:15 | A.OFFPC_ITS ---
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: No Accompanied by: Self / Same As Patient Allergies atorvastatin Adverse Reaction (Severe, Verified 04/09/25 15:57) Difficulty Breathing mirtazapine Adverse Reaction (Intermediate, Verified 04/09/25 15:57) bad dreams rosuvastatin Adverse Reaction (Intermediate, Verified 04/09/25 15:57) increased headaches Medication List - Last Reconciled 04/09/25 by Wilfredo Escobar MD cholecalciferol (vitamin D3) 50 mcg PO DAILY 90 days hydrocortisone 2.5% (Proctosol HC) 1 appl DE BID-QID PRN rosuvastatin 5 mg PO Q OTHER DAY sennosides (Natural Senna Laxative) 17.2 mg (2 x 8.6 mg) PO BEDTIME Tobacco use date assessed: 04/09/25 Dental Screening Dental Screen Date: 04/09/25 Did you have a dental visit in the last 12 months?: Yes Did you have a dental problem in the last 6 months where you did not have access to dental care?: No Was dental information given to patient?: Patient has dentist HPI PE HPI Details Patient comes in today for his annual physical examination States that he feels okay He denies any headaches or dizziness Denies any chest pains, no SOB No nausea/vomiting, no abdominal pain No change in bowel habits noted Denies any acute urinary symptoms States that he just had his follow up labs done earlier this morning - to discus s his results He had his screening colonoscopy done with Dr. Thurston a couple of years ago pn 12/07/2022 and was advised to get repeat colonoscopy in 3 to 5 years due to the presence of polyps on his initial procedure but patient would like to get this done as soon as possible and states that he discuss this with Dr. Thurston as he thinks that he may also have IBS, based on his past GI symptoms He recently experienced an episode of constipation and during that episode, he experienced a burning sensation in the sigmoid colon area and abnormal urination, both of which are now resolved He is also complaining of a year-long issue with his right arm, characterized by cracking sounds in the shoulder, which he associates with cervical arthritis. The pain in his shoulder was previously worse but has improved, and he is now accustomed to the sensation. He is also right-handed and plays the bongos often, which may be contributing to his recurrent right shoulder issues He reports a recent weight gain, with his current weight at 242 lbs compared to 233 lbs previously. He reports sleeping better at night lately and has been getting about 7-8 hours of sleep at night consistently His recent lab work shows an HbA1c of 6.0, consistent with previous readings of 5.9-6.0, indicating borderline diabetes. His total cholesterol is 211, slightly lower than before, and his LDL is 139, down from 144. His vitamin D level is low and has dropped since last tested. His chloride level was slightly elevated at 109, which he was told could be from dehydration. A recent test for flu and COVID was negative. [facility] Medical History (Updated 04/14/25 @ 07:02 by Wilfredo Escobar MD) Morbid obesity with BMI of 45.0-49.9, adult Morbid obesity with BMI of 40.0-44.9, adult Cervical disc disease Vitamin D deficiency Viral meningitis Diabetes mellitus Obesity (BMI 30-39.9) Pure hypercholesterolemia Surgical History Hx of colonoscopy No pertinent past surgical history Family History Father Prediabetes Mother Schizophrenia Bipolar 1 disorder Maternal Grandfather Diabetes Daughter Epilepsy Maternal Grandmother Dementia Other Mental health problem Social History Housing: Apartment Alcohol intake: never Patient Tobacco Use Status: Never used Tobacco e-Cigarette/Vaping Use: Never Used Second Hand Smoke Exposure: Yes service: No Current occupational status: employed 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 1. Little interest or pleasure in doing things: not at all 2. Feeling down, depressed, or hopeless: not at all 3. Trouble falling or staying asleep, or sleeping too much: not at all 4. Feeling tired or having little energy: not at all 5. Poor appetite or overeating: not at all 6. Feeling bad about yourself - or that you are a failure or have let yourself or your family down: not at all 7. Trouble concentrating on things, such as reading the newspaper or watching television: not at all 8. Moving or speaking so slowly that other people could have noticed. Or the opposite - being so fidgety or restless that you have been moving around a lot more than usual: not at all 9. Thoughts that you would be better off or of hurting yourself in some way: not at all Total score: 0 Depression Screening Interpretation: Negative Depression Screening Done: Yes 08344 - PHQ-9 Billing: Yes Source: Developed by Drs. Thomas Lopez, Jami Enciso, Nahid Hicks and colleagues, with an educational carmen from [employer]. Thrive Questionnaire Date Thrive assessed: 04/09/25 I am a: Patient What is your living situation today?: I have a steady place to live Within the past 12 months, did the food you bought not last and you didn't have the money to get more?: Often true Within the past 12 months, did you worry whether your food would run out before you got money to buy more?: I choose not to answer this question Do you have trouble paying for medicines?: No Do you have trouble getting transportation to medical appointments?: No Do you have trouble paying your heating and electricity bill?: No Do you have trouble taking care of your child, family member or friend?: No Do you have trouble with day-to-day activities such as bathing, preparing meals, shopping, managing finances, etc.?: No Are you currently unemployed and looking for a job?: No Are you interested in more education?: No Please select the resources that you would like help with: None Currently or been in a relationship where the following occur: I choose not to answer THRIVE Score: 1 AUDIT C Alcohol Use Questionnaire (AUDIT-C) 1. How often do you have a drink containing alcohol?: Monthly or less 2. How many drinks containing alcohol do you have on a typical day when you are drinking?: 1 or 2 3. How often do you have six or more drinks on one occasion?: Never Total Score: 1 Score Reviewed/Action Taken: Yes SEBASTIAN-7 AMB Questionnaire SEBASTIAN-7 Date SEBASTIAN - 7 assessed: 04/09/25 Feeling nervous, anxious, or on edge: 0 = Not at all Not being able to stop or control worryin = Not at all Worrying too much about different things: 0 = Not at all Trouble relaxin = Not at all Being so restless that it is hard to sit still: 0 = Not at all Becoming easily annoyed or irritable: 0 = Not at all Feeling afraid as if something awful might happen: 0 = Not at all Total SEBASTIAN-7 score (0-4 normal; 5-9 mild; 10-14 moderate; 15-21 severe): 0 Source: Developed by Drs. Thomas Lopez, Jami Enciso, Nahid Hicks and colleagues, with an educational carmen from [employer]. Review of Systems Const Denies chills, Denies fatigue, Denies fever(s), Denies headache(s), Denies malaise and Denies weakness Eyes Denies blurry vision, Denies change in vision, Denies irritation and Denies itchy eyes ENT Denies dysphagia, Denies dizziness, Denies otalgia, Denies headache(s), Denies nasal congestion, Denies neck pain, Denies odynophagia and Denies sore throat Card Denies rapid heart rate, Denies irregular heart rhythm, Denies palpitations and Denies dyspnea Resp Denies chest congestion, Denies cough, Denies dyspnea and Denies wheezing GI Denies abdominal pain, Denies bloating, Denies constipation, Denies dysphagia, Denies heartburn, Denies diarrhea, Denies nausea, Denies odynophagia and Denies vomiting Denies hematuria, Denies difficulty urinating, Denies dysuria, Denies urinary frequency and Denies urinary urgency Musc Denies back pain, Reports arthralgias (on and off in the right shoulder), Denies joint swelling, Denies muscle weakness and Denies neck pain Skin/Breast Denies change in pigmentation, Denies lesions, Denies rash and Denies unusual bruising Neuro Denies dizziness, Denies headache(s), Denies paresthesias and Denies weakness Endo Denies fatigue and Denies palpitations Aller/Immun Denies itchy eyes and Denies wheezing Physical exam (Primary Care) Vital Signs: Last Vital Signs Pulse 67 04/09/25 15:15 BP 122/74 04/09/25 15:15 Pulse Ox 94 04/09/25 15:15 Oxygen Delivery Method Room Air 04/09/25 15:15 BMI result Body Mass Index 45.7 Tobacco/Smoking Status: Tobacco use Status Tobacco use date assessed 04/09/25 04/09/25 15:18 Patient Tobacco Use Status Never used Tobacco 04/09/25 15:18 e-Cigarette/Vaping Use Never Used 04/09/25 15:18 PHQ-9: PHQ-9 Score PHQ-9: Total score 0 04/09/25 15:59 Depression Screening Interpretation: Negative Thrive Assessment: Date of Thrive Assessment Date Thrive assessed 04/09/25 04/09/25 15:18 Currently or been in a relationship where the following occur: I choose not to answer Const General: no acute distress, alert and awake Orientation/consciousness: patient oriented x3 HENMT Head: Yes normocephalic and Yes atraumatic Ears: external ears normal, TM's normal bilaterally and EAC's normal General nose exam: No nasal discharge present Face and sinus: Yes normal facial exam and Yes sinuses nontender Teeth and gingiva: dentition normal Throat: Yes posterior oropharynx normal and Yes tonsils normal (no TP congestion) Eyes Eyelids: Yes eyelids normal Conjunctivae: conjunctivae normal Pupils: Equal, round and reactive pupils present EOM: EOMs intact bilaterally Neck Neck: Yes no lymphadenopathy and Yes supple Thyroid: Thyroid normal Resp Auscultation: clear to auscultation bilaterally, no rales and no wheezes Cardio Rate: regular rate Rhythm: regular rhythm Heart sounds: no murmurs GI Palpation (GI): Soft to palpation, nontender and No hepatosplenomegaly present Auscultation: normal bowel sounds General: Yes no CVA tenderness Back/Spine/Pelvis Back: no CVA tenderness Thoracic/Lumbar Spine: thoracic and lumbar spine normal to inspection Skin Lesions: no lesions Rashes: no rashes Neuro General: patient oriented x3, moves all extremities, no focal motor deficits and CN's II-XI intact bilaterally Cranial nerves: Yes Equal, round and reactive pupils present Cognition (Neuro): normal cognition Gait exam (Neuro): Normal gait present Extrem General: Yes no clubbing, cyanosis or edema Results Reviewed Results Reviewed: Laboratory Tests 04/09/25 04/09/25 11:22 11:26 WBC 7.7 Hgb 14.1 Hct 43.1 Plt Count 222 Sodium 142 Potassium 4.9 Creatinine 0.94 Estimated GFR > 60 Fasting Glucose 98 Hemoglobin A1c % 6.0 Calcium 9.6 AST 21 ALT 27 Triglycerides 75 Cholesterol 211 H LDL Cholesterol, Calc 139 H HDL Cholesterol 57 PSA Screen 1.12 25-OH Vitamin D Total 22.6 L TSH 1.43 Ur Specific [place] 1.020 Urine Protein Negative Urine Glucose (UA) Negative Urine Blood Negative Urine Nitrite Negative Ur Leukocyte Esterase Negative Coding Level of Care Code Est Pt Prev Care 40-64y(87803) Diagnoses Annual physical exam Z00.00 Postprandial abdominal bloating R14.0 Pure hypercholesterolemia E78.00 Type 2 diabetes mellitus without complication, without long-term current use of insulin E11.9 Diabetes mellitus complication status: without complication Diabetes mellitus intermediate insulin use: 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 Diabetes mellitus type: type 2 Vitamin D deficiency E55.9 Right shoulder pain, unspecified chronicity M25.511 Chronicity: unspecified Cervical disc disease M50.90 Anxiety F41.9 Morbid obesity with BMI of 45.0-49.9, adult E66.01; Z68.42 Additional Codes PHQ-9 - 80708 - PHQ-9 Billing: Yes ([id number]) Assessment & Plan Assessment & Plan (1) Annual physical exam: Code(s): Z00.00 - Encounter for general adult medical examination without abnormal f indings Category: Medical Plan: Results of his labs done earlier today reviewed and discussed with patient He had his screening colonoscopy done with Dr. Thurston a couple of years ago pn 12/07/2022 and was advised to get repeat colonoscopy in 3 to 5 years due to the presence of polyps on his initial procedure but patient would like to get this done as soon as possible and states that he discuss this with Dr. Thurston as he thinks that he may also have IBS, based on his past GI symptoms (2) Postprandial abdominal bloating: Code(s): R14.0 - Abdominal distension (gaseous) Plan: Patient states that he has been experiencing a lot of recurrent bloating and occasional abdominal cramps usually after eating lately and thinks that he may have IBS and will be seeing GI in June 2025 for his follow up visit and will discuss this further with them (3) Pure hypercholesterolemia: Code(s): E78.00 - Pure hypercholesterolemia, unspecified Category: Medical Plan: Results of his labs done earlier today reviewed and discussed with patient - he is advised that his total and LDL cholesterol levels are still elevated and are mostly unchanged from previous Patient could not tolerate Rosuvastatin QD due to side effects (headaches and myalgia) but appears to be able to tolerate taking it at 5 mg every other day Reinforced low cholesterol diet Will recheck his labs and fasting lipids in a couple of months for follow up (4) Diabetes mellitus: Code(s): E11.9 - Type 2 diabetes mellitus without complications Category: Medical Qualifiers: Diabetes mellitus complication status: without complication 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: without intermediate use Diabetes mellitus type: type 2 Qualified Code(s): E11.9 - Type 2 diabetes mellitus without complications Plan: His HgbA1c was still at 6.0% on his labs done earlier today (was previously at 5.9% a few months ago) - goal is HgbA1c of at least < 7.0% but should ideally be <5.8% if he does not wish to take any Rx for his blood sugar Reinforced diabetic diet Patient stopped taking his Metformin ER 500 mg QD back in January 2023 as he recalls not feeling good whenever he took Metformin He would like to continue working on his diabetes with diet modification for now but would like to see if he can try some of the GLP-1s to help him lose weight We tried starting him on Ozempic 0.25 mg SQ once a week but he states that his insurance declined to cover the Rx (5) Vitamin D deficiency: Code(s): E55.9 - Vitamin D deficiency, unspecified Category: Medical Plan: He is advised that his Vitamin D level is still low on his recent labs Continue Vitamin D3 2000 units QD (6) Right shoulder pain: Code(s): M25.511 - Pain in right shoulder Category: Medical Qualifiers: Chronicity: unspecified Qualified Code(s): M25.511 - Pain in right shoulder Plan: Will send patient for x-rays of the right shoulder for further evaluation (7) Cervical disc disease: Code(s): M50.90 - Cervical disc disorder, unspecified, unspecified cervical region Category: Medical Plan: Cervical spine x-rays done back in 2019 revealed (+) narrowing of the intervertebral disc spaces suggest underlying degenerative disc disease Patient states that his neck (pain) has not really bothered him at all lately so no intervention is needed at this time (8) Anxiety: Code(s): F41.9 - Anxiety disorder, unspecified Category: Medical Plan: He was started on Mirtazapine 7.5 mg Q HS a couple of years ago but he stopped taking this after a while and did not feel that he's had any problems since He has not had any significant bouts of anxiety for a couple of years now and does not feel that he needs anything else at this time - feels that his anxiety a couple of years ago was mostly due to his bout with meningitis then (9) Morbid obesity with BMI of 45.0-49.9, adult: Code(s): E66.01 - Morbid (severe) obesity due to excess calories; Z68.42 - Body mass index [BMI] 45.0-49.9, adult Category: Medical Plan: Reinforced diet/exercise as tolerated/lose weight - he has gained a lot of weight since his last visit We previously tried to start him on Semaglutide to help with both his blood sugar and weight but his Rx was denied by his insurance Plan To return in 6 months for his next annual physical examination Orders: Orders Comprehensive [place]. Panel Fast 6 Months E78.00 - Pure hypercholesterolemia, unspecified Complete Blood Count Auto Diff 6 Months D64.9 - Anemia, unspecified UA CC w/rflx Micro + Cult 6 Months R30.0 - Dysuria XR shoulder LT min 2V // M25.512 - Pain in left shoulder Hemoglobin A1c 6 Months E11.9 - Type 2 diabetes mellitus without complications Lipid Panel 6 Months E78.00 - Pure hypercholesterolemia, unspecified Microalbumin, Random (w Creat) 6 Months E11.9 - Type 2 diabetes mellitus without complications TSH reflex Free T4 6 Months E78.00 - Pure hypercholesterolemia, unspecified Vitamin D 25-OH Total 6 Months E55.9 - Vitamin D deficiency, unspecified
== END 2025-04-09 16:11 | disposition home or self-care (01) ==
LOC: HO.HMCH 15:02
PROVIDERS: PCP Internal Medicine; Visit Provider Internal Medicine
DX: Z00.00 Encounter for general adult medical examination without abnormal findings (principal); R14.0 Abdominal distension (gaseous); E78.00 Pure hypercholesterolemia, unspecified; E11.9 Type 2 diabetes mellitus without complications; E55.9 Vitamin D deficiency, unspecified; M25.511 Pain in right shoulder; M50.90 Cervical disc disorder, unspecified, unspecified cervical region; F41.9 Anxiety disorder, unspecified; E66.01 Morbid (severe) obesity due to excess calories; Z68.42 Body mass index [BMI] 45.0-49.9, adult